=== PATIENT | female | born 1950 | race Hispanic/Latino ===

== ENCOUNTER → 2017-05-11 | Day surgery (SDC) | payer MEDICARE ==
[~2017-05-11] VITALS: Ht 165.1 cm; Wt 81.6 kg
[~2017-05-11] MED LIST: ALLEGRA ALLERGY60 MG PO; ALLEGRA60 MG PO; ALPRAZOLAM0.25 MG PO; ASPRIMOX 325 M325 MG PO; CUBICIN500 MG IV; DRISDOL50000 UNIT PO; FEXOFENADINE HC60 MG PO; FLONASE16 GM; FLOVENT DISKUS50 MCG; LIDOCAINE HCL 2% LOCAL 20 ML VIAL ONE; METOCLOPRAMIDE10 MG PO; METOPROLOL TART50 MG PO; NEPHRO-VITE RX1 EACH PO; NIFEDIPINE ER30 M1 PO; NOVOLOG 70100 UNITS/ SQ; RENAL CAPS SOFTG1 MG PO; RENVELA0.8 GM PO; RIFAMPIN PO; SENSIPAR30 MG PO; SIMVASTATIN80 MG PO; TRAZODONE HCL100 MG PO; Z.0.METOPROLOL TART5 PO; Z.0.RENVELA800 MG PO; Z.0.VITAMIN D50000 U PO; Z.0.XANAX0.25 MG PO; Z.0.ZOCOR80 MG PO; Z.1.DOXYCYCLINE HY10 PO; [UNRECOGNIZED DRUG - OTHER] PO; [UNRECOGNIZED DRUG - OTHER] PO; [UNRECOGNIZED DRUG - OTHER] PO
[2017-05-11 13:41] VITALS: BP 150/67
--- NOTE | 2017-05-11 16:34 | Operative Report ---
DATE OF PROCEDURE: May 11, 2017 INDICATIONS: Palpitations. PROCEDURE PERFORMED: Insertable loop recorder. Left anterior chest wall was anesthetized using subcutaneous lidocaine. A [employer] LINQ serial number [id number] was inserted without complications. Skin was approximated using Dermabond. Patient discharged home the same day. Job#: [id number]
--- OUTSIDE RECORDS SUMMARY | 2017-05-31 17:18 | XMS REPORT | Clinical Summary ---
Author Author [facility] Address Unknown Phone Unavailable Care Team Providers Care Pest Control Worker Name Role Phone Asked, Pcp PCP Unavailable Allergies Active Allergy Reactions Severity Noted Date Comments Iodine Other (See Comments) 11/21/2015 Iodine - unknown Current Medications Prescription Sig. Disp. Refills Start End Date Status Date simvastatin (ZOCOR) 80 MG Take 80 mg by mouth Active tablet nightly. aspirin 325 MG tablet Take 325 mg by mouth Active daily. ALPRAZolam (XANAX) 0.25 Take 0.25 mg by mouth Active MG tablet nightly as needed for anxiety. NIFEdipine XL (PROCARDIA Take 30 mg by mouth Active XL) 30 MG 24 hr tablet daily. temazepam (RESTORIL) 15 Take 15 mg by mouth Active mg capsule nightly as needed for sleep. traZODone (DESYREL) 50 MG Take 50 mg by mouth Active tablet nightly. metoclopramide (REGLAN) Take 10 mg by mouth Active 10 MG tablet daily. furosemide (LASIX) 40 MG Take 40 mg by mouth 2 Active tablet (two) times a day. cinacalcet (SENSIPAR) 30 Take 30 mg by mouth Active MG tablet daily. sevelamer (RENVELA) 800 Take 800 mg by mouth 3 Active mg tablet (three) times a day with meals. Active Problems Problem Noted Date ESRD (end stage renal disease) 11/21/2015 Social History Tobacco Use Types Packs/Day Years Used Date Never Smoker Smokeless Tobacco: Never Used Alcohol Use Drinks/Week oz/Week Comments No Sex Assigned at Date Recorded Not on file Last Filed Vital Signs Not on file Plan of Treatment Health Maintenance Due Date Last Done Comments COLONOSCOPY 10/10/1999 MAMMOGRAM 10/10/1999 ZOSTER VACCINE 2009 PNEUMOCOCCAL 2014 POLYSACCHARIDE VACCINE AGE 65 AND OVER PNEUMOCOCCAL-13 2014 INFLUENZA VACCINE 09/22/2017 Implants Implanted Type Area Associate Principal Device Expiration Model / Identifier Date Serial / Lot Clip Ligtng Weck Hemoclip Plus W/ Medical Right: TELEFLEX 07/01/2020 [id number] / Tape Ti Med - [id number] Clips for Arm, Upper MEDICAL / Implanted: Qty: 2 on 11/21/2015 by Internal [id number] Jason Garrido MD Use Clip Ligtng Weck Hemoclip Plus W/ Medical Right: WECK CLOSURE 2020 [id number] / Tape Ti Sm - [id number] Clips for Arm, Upper SYSTEMS / Implanted: Qty: 1 on 11/21/2015 by Internal [id number] Jason Garrido MD Use Graft Vasclr Acuseal 40cm 6mm - Vascular Right: W L GORE 06/30/2018 [id number] Graft Arm, Upper / Implanted: 11/21/2015 (Quantity not [id number] on file) [id number] Hero Adapter - [id number] Right: Arm [employer] 05/14/2017 [id number] / Implanted: Qty: 1 on 11/21/2015 by / Jason Garrido MD [id number] Component Lamberto [facility] Hero - Right: Arm HEMOSPHERE 02/21/2017 HERO 1001 [id number] / Implanted: Qty: 1 on 11/21/2015 by / Jason Garrido MD [id number] Results Not on fileafter 05/30/2016 Insurance Payer Benefit Subscriber ID Type Phone Address Plan / Group MEDICARE MEDICARE xxxxxxxxxx Medicare [place], [place] [address]
== END ==
LOC: CATH LAB 07:00
PROVIDERS: ATTEND Internal Medicine Interventional Cardiology
DX: Z01.818 Encounter for other preprocedural examination (principal); Z53.8 Procedure and treatment not carried out for other reasons; I73.9 Peripheral vascular disease, unspecified; R00.2 Palpitations
CPT/HCPCS: 33282; J2001

== ENCOUNTER → 2017-09-30 | Day surgery (SDC) | payer MEDICARE ==
[2017-09-29 13:40] LABS: BASOPHILS % 0.6 % (0.0-1.0); EOSINOPHILS # (AUTO) 0.2 (0.0-0.4); EOSINOPHILS % 2.3 % (0.0-6.0); HEMATOCRIT 36.4 % (34.2-44.1); LYMPHOCYTES # (AUTO) 2.2 (1.0-3.2); LYMPHOCYTES % 30.6 % (18.0-39.1); MEAN CORPUSCULAR HEMOGLOBIN 34.7 pg (28-32); MEAN CORPUSCULAR VOLUME 105.2 fL (81-99); MONOCYTES # (AUTO) 0.5 (0.2-0.8); MONOCYTES % 7.7 % (4.4-11.3); NEUTROPHILS # (AUTO) 4.1 (2.1-6.9); NEUTROPHILS % 58.5 % (38.7-80.0); PLATELET COUNT 172 x10e3/uL (140-360); RED BLOOD COUNT 3.46 x10e6/uL (3.6-5.1); RED CELL DISTRIBUTION WIDTH 14.4 % (11.7-14.4)
[2017-09-29 13:50] LABS: PROTHROMBIN TIME 12.4 seconds (11.9-14.5)
[2017-09-29 13:57] LABS: ANION GAP 21.1 mmol/L (8-16); CALCIUM 8.7 mg/dL (8.4-10.2); CREATININE, SERUM 6.54 mg/dL (0.57-1.11); POTASSIUM 5.1 mmol/L (3.5-5.1)
[~2017-09-30] VITALS: Ht 165.1 cm; Wt 81.6 kg
[2017-09-30] VITALS (10 sets, daily range): BP systolic 98–127; BP diastolic 46–65
[~2017-09-30] MED LIST changes: +BACITRACIN 50,000 UNIT VIAL ONE; +CEFAZOLIN SOD 1 GM VIAL ONE; +FENTANYL CITRATE/PF 100MCG/2 ML INJ ONE; +IOPAMIDOL 300MG/ML 50ML INFUS..BTL IV ONE; +MIDAZOLAM HCL 2 MG/2 ML VIAL ONE; +SODIUM CHLORIDE 0.9% 1000ML 2,000 ML ONE; +SODIUM CHLORIDE 0.9% 500ML 500 ML ONE
--- NOTE | 2017-09-30 17:25 | Operative Report ---
DATE OF PROCEDURE: September 30, 2017 PREOPERATIVE DIAGNOSES 1. Intermittent complete heart block. 2. End-stage renal disease, on hemodialysis. POSTOPERATIVE DIAGNOSES 1. Intermittent complete heart block. 2. End-stage renal disease, on hemodialysis. ESTIMATED BLOOD LOSS: Less than 5 mL. OPERATIONS PERFORMED 1. Fluoroscopy. 2. Venogram. 3. Attempt at axillary vein access. 4. Moderate sedation. Moderate conscious sedation was provided under my direct supervision. Sedation approximate time 15 minutes, Versed and fentanyl. There were no complications. See report for details. DETAILS OF PROCEDURE: After informed consent was obtained, the patient was brought to the electrophysiology laboratory in a fasting, nonsedated state. Area over her chest was prepped and draped in the usual sterile fashion. Moderate sedation and prophylactic antibiotics were given. Lidocaine 1% was used as local anesthetic. Due to right arm AV fistula, right-sided access is contraindicated. We went ahead and attempted access at the left axillary vein. A venogram demonstrated the vein was occluded. We still attempted with the percutaneous needle. We were able to thread a wire for about 1 inch inside the vein; however, unable to pass the occlusion, so procedure was stopped. We did not make an incision. We did not make any pocket. Patient tolerated the procedure well. Procedure was deemed complete. At this time, attempt getting central venous access was failed. Procedure was canceled and she is to be discharged later today. IMPRESSION: Failed attempt at axillary access from the left side due to vein occlusion in the axillary vein. PLANS 1. Routine postop monitoring, telemetry bed. 2. Consider epicardial pacemaker placement by CT surgery. Will discuss with Dr. Hurt. 3. In the evening that patient is turned down for epicardial pacemaker placement, we could potentially consider a left IJ access and tunneling leads to subclavicular pocket. However, will need evaluation by CT surgery first. Thank you for letting us participate in Ms. [facility]. Job#: [id number] ZAKI
== END | disposition home or self-care (01) ==
LOC: CATH LAB 08:02
PROVIDERS: ATTEND Internal Medicine
DX: I45.5 Other specified heart block (principal); I12.0 Hypertensive chronic kidney disease with stage 5 chronic kidney disease or end stage renal disease; N18.6 End stage renal disease; I82.A12 Acute embolism and thrombosis of left axillary vein; E78.5 Hyperlipidemia, unspecified; E78.00 Pure hypercholesterolemia, unspecified; Z01.812 Encounter for preprocedural laboratory examination; Z79.4 Long term (current) use of insulin; Z79.82 Long term (current) use of aspirin; Z99.2 Dependence on renal dialysis; Z68.36 Body mass index [BMI] 36.0-36.9, adult; Z95.818 Presence of other cardiac implants and grafts
CPT/HCPCS: 36012; 36415; 80048; 85025; 85610; J0690; J2001; J2250; J7030; J7040; Q9967; 36005

== ENCOUNTER 2018-12-19 17:47 | Emergency (ER) | payer MEDICARE ==
[~2018-12-19] VITALS: Ht 165.1 cm; Wt 86.6 kg
[~2018-12-19 17:47] MED LIST changes: -BACITRACIN 50,000 UNIT VIAL ONE; -CEFAZOLIN SOD 1 GM VIAL ONE; -FENTANYL CITRATE/PF 100MCG/2 ML INJ ONE; -IOPAMIDOL 300MG/ML 50ML INFUS..BTL IV ONE; -LIDOCAINE HCL 2% LOCAL 20 ML VIAL ONE; -MIDAZOLAM HCL 2 MG/2 ML VIAL ONE; +ROPINIROLE HC0.25 MG PO; +SENNA S TABLET1 EACH PO; -SODIUM CHLORIDE 0.9% 1000ML 2,000 ML ONE; -SODIUM CHLORIDE 0.9% 500ML 500 ML ONE; +WARFARIN SODIUM2 MG PO
--- NOTE | 2018-12-19 18:21 | Diagnostic Imaging Report ---
Frontal and lateral views of the chest. HISTORY: Chest pain, high blood pressure COMPARISON: Chest radiograph May 26, 2018. DISCUSSION: Stable appearing right approach venous catheter, the tip projects in the region of the atrial junction. Lungs: Low lung volumes result in bibasilar vascular crowding, accentuation of the pulmonary interstitial markings, central pulmonary vasculature, and the cardiac silhouette. Allowing for these limitations, the findings are as follows: Left basilar platelike atelectasis. No evidence of a consolidative pneumonia or pulmonary alveolar edema. Pleura: No pleural effusion or pneumothorax. Heart and mediastinum: The cardiomediastinal silhouette appear(s) unchanged. Postsurgical changes and loop recorder. Bones and soft tissues: Multiple median sternotomy wires. IMPRESSION: 1. Increased left basilar platelike atelectasis. 2. Otherwise, no significant interval change. Signed by: Dr. Karl Sainz D.O., M.M.M. on 12/19/2018 6:18 PM
[2018-12-19 21:19] LABS: BASOPHILS # (AUTO) 0.1 (0.0-0.1); BASOPHILS % 0.7 % (0.0-1.0); EOSINOPHILS # (AUTO) 0.1 (0.0-0.4); EOSINOPHILS % 1.6 % (0.0-6.0); HEMATOCRIT 40.9 % (34.2-44.1); HEMOGLOBIN 13.9 g/dL (12.0-16.0); LYMPHOCYTES # (AUTO) 1.9 (1.0-3.2); LYMPHOCYTES % 25.8 % (18.0-39.1); MEAN CORPUSCULAR HEMOGLOBIN 35.9 pg (28-32); MEAN CORPUSCULAR VOLUME 105.7 fL (81-99); MONOCYTES # (AUTO) 0.5 (0.2-0.8); MONOCYTES % 7.2 % (4.4-11.3); NEUTROPHILS # (AUTO) 4.7 (2.1-6.9); NEUTROPHILS % 64.4 % (38.7-80.0); PLATELET COUNT 165 x10e3/uL (140-360); RED BLOOD COUNT 3.87 x10e6/uL (3.6-5.1); RED CELL DISTRIBUTION WIDTH 14.5 % (11.7-14.4)
[2018-12-19 22:32] LABS: CREATINE KINASE MB 2.8 ng/mL (0-4.3)
[2018-12-19 22:54] LABS: ALBUMIN 3.7 g/dL (3.5-5.0); ALBUMIN/GLOBULIN RATIO 0.7 (0.8-2.0); ANION GAP 25.6 mmol/L (8-16); CALCIUM 10.3 mg/dL (8.4-10.2); CREATININE, SERUM 5.18 mg/dL (0.57-1.11); POTASSIUM 4.6 mmol/L (3.5-5.1)
[2018-12-19 23:54] VITALS: BP 131/85
== END 2018-12-19 23:58 | disposition home or self-care (01) ==
LOC: ER 17:47
DX: R53.1 Weakness (principal); R51 Headache; I12.0 Hypertensive chronic kidney disease with stage 5 chronic kidney disease or end stage renal disease; E11.22 Type 2 diabetes mellitus with diabetic chronic kidney disease; N18.6 End stage renal disease; Z99.2 Dependence on renal dialysis; E78.5 Hyperlipidemia, unspecified; F41.9 Anxiety disorder, unspecified; Z95.810 Presence of automatic (implantable) cardiac defibrillator
CPT/HCPCS: 36415; 71046; 80053; 82550; 82553; 84484; 85025; 93005; 99283

== ENCOUNTER 2019-01-28 14:03 | Inpatient (IN) | payer MEDICARE ==
[~2019-01-28] VITALS: Ht 165.1 cm; Wt 82.6 kg
--- NOTE | 2019-01-28 14:40 | NUR ---
PATIENT TO ROOM 2
--- NOTE | 2019-01-28 15:14 | NUR ---
RECEIVED CALL FROM TIFFANI, . ( SHILOH, COORDINATOR) IF WE NEED ANY INFORMATION YOU CAN CALL
--- NOTE | 2019-01-28 16:50 | NUR ---
UNSUCCESFUL WITH IV START, MOMO HORVATHTECHNICAL PROGRAM MANAGER CALLED
[2019-01-28] MEDS ORDERED: ONDANSETRON HCL INJ 2MG/ML 2ML 2 MG/ML VIAL IV ONE (17:00)
[2019-01-28] MEDS ORDERED: PIPER-TAZ 3.375 GM 50 ML IV ONE (17:00)
[2019-01-28] MEDS ORDERED: MORPHINE SULFATE 2 MG/ML SYR 1ML IV ONE (17:00)
[2019-01-28] MEDS ORDERED: VANCOMYCIN 1GM/NS 250 ML 250 ML IV ONE ×2 (17:30→23:45)
--- NOTE | 2019-01-28 17:36 | NUR ---
MOMO FIRE SUPERVISOR, UNSUCCESFUL X 2. DR. JACOBO AWARE
--- NOTE | 2019-01-28 17:42 | NUR ---
LAB NOTIFIED TO DRAW BLOOD WORK
--- NOTE | 2019-01-28 17:52 | NUR ---
VICE PRESIDENT FOR INSTRUCTION AT BEDSIDE
--- NOTE | 2019-01-28 18:10 | NUR ---
VIA CULTURAL LINK (Dolores HOUSER). PURE PAK MACHINE OPERATOR. CONSENTS FROM CENTRAL LINE OBTAINED
--- NOTE | 2019-01-28 18:10 | NUR ---
STRIPPER AND PRINTER AT BEDSIDE OBTAINING 2ND SET OF CULTURES
[2019-01-28 18:11] LABS: BASOPHILS % 0.6 % (0.0-1.0); EOSINOPHILS # (AUTO) 0.2 (0.0-0.4); EOSINOPHILS % 2.3 % (0.0-6.0); HEMATOCRIT 35.5 % (34.2-44.1); HEMOGLOBIN 11.6 g/dL (12.0-16.0); LYMPHOCYTES # (AUTO) 2.3 (1.0-3.2); LYMPHOCYTES % 34.5 % (18.0-39.1); MEAN CORPUSCULAR HEMOGLOBIN 35.9 pg (28-32); MEAN CORPUSCULAR HGB CONC 32.7 g/dL (31-35); MEAN CORPUSCULAR VOLUME 109.9 fL (81-99); MONOCYTES # (AUTO) 0.6 (0.2-0.8); MONOCYTES % 9.1 % (4.4-11.3); NEUTROPHILS # (AUTO) 3.5 (2.1-6.9); NEUTROPHILS % 53.2 % (38.7-80.0); PLATELET COUNT 206 x10e3/uL (140-360); RED BLOOD COUNT 3.23 x10e6/uL (3.6-5.1); RED CELL DISTRIBUTION WIDTH 16.5 % (11.7-14.4)
[2019-01-28 18:29] LABS: INR 3.3; PROTHROMBIN TIME 34.3 seconds (11.9-14.5)
[2019-01-28 18:30] LABS: PARTIAL THROMBOPLASTIN TIME 61.9 seconds (23.8-35.5)
[2019-01-28] MEDS ORDERED: DEXTROSE 50% SYRINGE 50 ML IV PRN (18:30)
[2019-01-28] MEDS ORDERED: ONDANSETRON HCL INJ 2MG/ML 2ML 2 MG/ML VIAL IV PRN (18:30)
[2019-01-28 18:31] LABS: ALBUMIN 2.9 g/dL (3.5-5.0); ALBUMIN/GLOBULIN RATIO 0.7 (0.8-2.0); ANION GAP 20.4 mmol/L (8-16); CALCIUM 9.6 mg/dL (8.4-10.2); CREATININE, SERUM 5.59 mg/dL (0.57-1.11); POTASSIUM 4.4 mmol/L (3.5-5.1)
[2019-01-28 18:37] LABS: CREATINE KINASE MB 2.2 ng/mL (0-5.0)
--- NOTE | 2019-01-28 18:55 | NUR ---
DR. JACOBO AT BEDSIDE PLACING RIGHT FEMORAL CENTRAL LINE
--- NOTE | 2019-01-28 18:55 | Diagnostic Imaging Report ---
EXAMINATION: CHEST 2 VIEWS INDICATION: Fall, left chest wall abscess. COMPARISON: Chest radiograph 12/19/2018. FINDINGS: TUBES and LINES: Right IJ tunneled hematosis catheter with tip near the caval atrial junction. Cardiac loop recorder with adjacent leads in unchanged position. LUNGS: Low lung volumes with central vascular congestion and mild interstitial opacities. No evidence of lobar pneumonia. Linear subsegmental atelectasis in the lower lung zones. PLEURA: No pleural effusion or pneumothorax. HEART AND MEDIASTINUM: The cardiomediastinal silhouette is unremarkable. There are atherosclerotic calcifications within the aorta. BONES AND SOFT TISSUES: No acute osseous abnormality. Status post median sternotomy. UPPER ABDOMEN: No free air under the diaphragm. IMPRESSION: Low lung volumes with possible mild pulmonary interstitial edema. Signed by: Dr. Venancio Kumar MD on 01/28/2019 6:52 PM
[2019-01-28] MEDS: PIPERACILLIN/TAZO 2.25 GM 50 ML IV SCH (20:32)
[2019-01-28 22:15] VITALS: BP 176/68
--- NOTE | 2019-01-28 22:30 | NUR ---
Pt admitted to room 208 from home, via stretcher, able to transfer to bed with min assist. Pt alert and oriented to self, hospital, with confusion. Diagnosis: Cellulitis and abscess to left breast, ESRD with dialysis MWF, right arm fistula, left arm old fistula. Anuric. Last BM 01/28, continent. Kinyarwanda Speaking only. at bedside. Right eye blind. Upper and lower dentures. 18g right EJ, tender to touch. Pain under left breast with redness and swelling. Oriented to room. Bed low and locked. Bed alarm on. Call light within reach.
[2019-01-28] MEDS ORDERED: ULTRAM 50MG50 MG PO (22:48)
[2019-01-28] MEDS ORDERED: AURYXIA210 MG (22:48)
[2019-01-28] MEDS ORDERED: MIRTAZAPINE15 MG PO (22:48)
[2019-01-28 23:05] VITALS: BP 176/68
[2019-01-28 23:08] VITALS: BP 176/68
[2019-01-28] MEDS: INSULIN LISPRO 100 UNIT/1 ML 3ML VIAL SQ SCH (23:45)
[2019-01-28] MEDS ORDERED: SODIUM CHLORIDE 0.9% 250ML 250 ML ONE (23:46)
[2019-01-29] VITALS (8 sets, daily range): BP systolic 98–145; BP diastolic 46–63
[2019-01-29 05:57] LABS: BASOPHILS # (AUTO) 0.1 (0.0-0.1); BASOPHILS % 0.5 % (0.0-1.0); EOSINOPHILS # (AUTO) 0.2 (0.0-0.4); EOSINOPHILS % 1.6 % (0.0-6.0); LYMPHOCYTES # (AUTO) 1.9 (1.0-3.2); LYMPHOCYTES % 20.7 % (18.0-39.1); MEAN CORPUSCULAR HEMOGLOBIN 35.5 pg (28-32); MEAN CORPUSCULAR HGB CONC 32.4 g/dL (31-35); MEAN CORPUSCULAR VOLUME 109.5 fL (81-99); MONOCYTES # (AUTO) 0.6 (0.2-0.8); MONOCYTES % 6.5 % (4.4-11.3); NEUTROPHILS # (AUTO) 6.4 (2.1-6.9); NEUTROPHILS % 70.3 % (38.7-80.0); PLATELET COUNT 237 x10e3/uL (140-360); RED BLOOD COUNT 3.38 x10e6/uL (3.6-5.1); RED CELL DISTRIBUTION WIDTH 16.3 % (11.7-14.4)
[2019-01-29] MEDS: PIPERACILLIN/TAZO 2.25 GM 50 ML IV SCH ×2 (06:00→17:41)
[2019-01-29 06:15] LABS: ALBUMIN 3.1 g/dL (3.5-5.0); ALBUMIN/GLOBULIN RATIO 0.7 (0.8-2.0); ANION GAP 24.4 mmol/L (8-16); CALCIUM 9.6 mg/dL (8.4-10.2); CREATININE, SERUM 6.28 mg/dL (0.57-1.11); POTASSIUM 5.4 mmol/L (3.5-5.1)
[2019-01-29] MEDS: INSULIN LISPRO 100 UNIT/1 ML 3ML VIAL SQ SCH ×4 (07:30→21:10)
--- NOTE | 2019-01-29 08:01 | NUR ---
k-5.[address] Serrano, he consulted Dr Fishman her kidney Dr, Paged Dr Fishman
--- NOTE | 2019-01-29 08:40 | NUR ---
Call recvd from Dr De La Torre (account retention representative Dr Fishman), new order to give Kayexalate po 45gm once and ,miralax 17gm X1 . patient is stable
[2019-01-29] MEDS ORDERED: POLYETHYLENE GLYCOL 3350 17 GM PACK PO ONE (09:30)
[2019-01-29] MEDS ORDERED: SOD POLYSTYRENE SULFONATE SUSP 15 GM/60 ML BTL PO ONE (09:30)
[2019-01-29] MEDS ORDERED: ALPRAZOLAM 0.25 MG TAB PO PRN (10:00)
[2019-01-29] MEDS ORDERED: TRAMADOL HCL 50 MG TAB PO PRN (10:00)
[2019-01-29 10:54] LABS: CREATINE KINASE MB 1.4 ng/mL (0-5.0)
--- NOTE | 2019-01-29 13:20 | NUR ---
Dr Cruz at bed side to I&D, PATIENT IS STABLE
[2019-01-29] MEDS ORDERED: LIDOCAINE HCL 1% LOCAL INJ 20 ML VIAL INJ ONE (14:00)
[2019-01-29] MEDS: SENNA-S TABLET PO SCH (17:40)
--- NOTE | 2019-01-29 19:15 | NUR ---
Bedside rounds completed with morning nurse. Pt alert to name, lying in bed HOB 45 degrees. No s/o of pain at this time. Family at bedside. Call light within reach. Will continue to monitor.
--- NOTE | 2019-01-29 20:30 | Consultation ---
DATE OF CONSULTATION: 01/29/2019 CHIEF COMPLAINT: Abdominal wall abscess. HISTORY OF PRESENT ILLNESS: The patient is a 68-year-old female with several-day history of swelling, redness, and pain in the upper abdominal region under the left breast. She denies fever or chills. PAST MEDICAL HISTORY: Significant for hypertension, end-stage renal disease, hyperparathyroidism, and diabetes. PAST SURGICAL HISTORY: Positive for pacemaker placement. SOCIAL HABITS: No smoking or alcohol use. ALLERGIES: SHE HAS NO DRUG ALLERGIES. REVIEW OF SYSTEMS: She denies chest pain or shortness of breath. PHYSICAL EXAMINATION: VITAL SIGNS: Stable, afebrile. GENERAL: She is awake, alert, in mild discomfort. HEENT: Sclerae anicteric. NECK: Supple. LUNGS: Clear. HEART: Regular rate and rhythm. ABDOMEN: Soft. In the left subcostal margin regions, there is a 3 x 2 cm area of erythema with some exudate drainage consistent with abscess. EXTREMITIES: With some ankle edema. LABORATORY DATA: White cell count is 9 and hemoglobin of 12. Creatinine of 6.2. INR of 3.3. ASSESSMENT: Abdominal wall abscess. PLAN: I and D of abdominal wall abscess under local anesthesia. Attendant risks of bleeding discussed. Hayden Cruz MD DNL/MODL /[id number]
--- NOTE | 2019-01-29 20:45 | Operative Report ---
DATE OF PROCEDURE: 01/29/2019 SURGEON: Hayden Cruz MD PREOPERATIVE DIAGNOSIS: Abdominal wall abscess. POSTOPERATIVE DIAGNOSIS: Abdominal wall abscess. PROCEDURE: Incision and drainage of abdominal wall abscess. ANESTHESIA: Local. INDICATIONS: A 68-year-old female with diabetes and end-stage renal disease with development of abdominal wall abscess for several days. She consented for incision and drainage under anesthesia local. DESCRIPTION OF PROCEDURE: The patient was placed in supine position in her hospital bed. The left upper quadrant subcostal margin area was prepped with Betadine and draped in a sterile fashion. Local anesthesia 1% lidocaine was injected into the area of the abscess. A transverse incision was made approximately 3 cm into the anterior wall of the abscess entering the cavity. Purulent material was evacuated and swab specimen obtained for culture and sensitivity. The cavity was then probed to break up all loculations and compressed to release all purulent material. Cavity was then packed tight with iodoform gauze for hemostasis, which was achieved with compression dressing of 4x4 and silk tape. The patient tolerated the procedure well. BLOOD LOSS: 10 mL. Hayden Cruz MD DNL/MODL /[id number]
[2019-01-29] MEDS: SIMVASTATIN 80 MG TAB PO SCH (21:10)
[2019-01-29] MEDS: TRAZODONE HCL 50 MG TAB PO SCH (21:10)
[2019-01-29] MEDS: MIRTAZAPINE 15 MG TAB PO SCH (21:10)
[2019-01-29] MEDS: ROPINIROLE HCL 0.25 MG TAB PO SCH (21:10)
--- NOTE | 2019-01-29 23:40 | Consultation ---
DATE OF CONSULTATION: 01/29/2019 Nephrology Consultation REASON FOR CONSULT: End-stage kidney disease. HISTORY OF PRESENT ILLNESS: Ms. Christine is a 68-year-old female with the following problem list: 1. End-stage kidney disease, on chronic hemodialysis on Mondays, Wednesdays, and Fridays. 2. History of diabetes mellitus type 2. 3. History of hypertension. 4. Morbid obesity. 5. Anemia of chronic disease. The patient was admitted with left upper quadrant abdominal abscess of her abdominal wall. It was drained. The patient's is at the bedside. The patient is complaining of mild pain at the surgical site. PAST MEDICAL HISTORY: As above. MEDICATIONS: Per medication list. ALLERGIES: PER ALLERGY LIST. SOCIAL HISTORY: She lives with family. She denies tobacco, alcohol, illicit or recreational drug use. PHYSICAL EXAMINATION: GENERAL: Adult female of approximate stated age, morbidly obese, in no acute distress. VITAL SIGNS: Blood pressure 98/46, heart rate 93 per minute, T-max 99 degrees Fahrenheit. SHEENT: Unremarkable. NECK: Supple. LUNGS: Clear. HEART: Normal heart sounds. No additional sounds. ABDOMEN: Soft and nontender. No organomegaly. EXTREMITIES: No cyanosis, clubbing, or edema. LABORATORY FINDINGS: Noted and reviewed. ASSESSMENT AND PLAN: 1. End-stage kidney disease. The patient will be continued on her outpatient dialysis schedule. She will receive dialysis tomorrow. 2. Hyperkalemia, treated with Kayexalate and MiraLax with good result. 3. Metabolic acidosis, mild. 4. Anemia of chronic disease. Hematocrit and hemoglobin are in good range. 5. Disposition. We will follow this patient with you. I have discussed my evaluation, assessment and plan of care with the patient and her at the bedside in details. All questions were answered to their satisfaction until they had none. MD BREE Rodriguez/SHELLEY /[id number]
[2019-01-30] VITALS (8 sets, daily range): BP systolic 106–185; BP diastolic 46–77
[2019-01-30] MEDS: PIPERACILLIN/TAZO 2.25 GM 50 ML IV SCH ×3 (05:37→21:26)
--- NOTE | 2019-01-30 05:40 | NUR ---
[facility] called to inform of Pt in hospital. Dialysis usu received MWF.
--- NOTE | 2019-01-30 07:00 | NUR ---
BEDSIDE SHIFT REPORT RECEIVED FROM THE PETROPHYSICAL ENGINEER RN. EDUCATED PT ABOUT FALL PRECAUTIONS. CALL LIGHT WITH IN EASY REACH. INSTRUCTED PT TO USE CALL LIGHT FOR ALL THE NEEDS. PT VERBALIZED UNDERSTANDING. BED IS LOW AND LOCKED. SIDE RAILS X2. BED ALARM IS ON. PT DENIES NEEDS AT THIS TIME.
--- NOTE | 2019-01-30 07:15 | NUR ---
Spoke with Dr. Cruz regarding Pt new red tender mass to posterior right shoulder, will visit Pt later today.
[2019-01-30] MEDS: INSULIN LISPRO 100 UNIT/1 ML 3ML VIAL SQ SCH ×4 (07:30→21:00)
[2019-01-30] MEDS: SENNA-S TABLET PO SCH ×3 (09:00→17:23)
--- NOTE | 2019-01-30 09:00 | NUR ---
JAMIL IVERSON REGARDING PT DIALYSIS.
--- NOTE | 2019-01-30 09:00 | NUR ---
DR. CHRIS AT BEDSIDE. INFORMED PT K LEVEL.
--- NOTE | 2019-01-30 11:30 | NUR ---
VETERINARY PATHOLOGIST AT BEDSIDE.
--- NOTE | 2019-01-30 12:40 | NUR ---
Called and left message for Dr. Serrano regarding dc plan, possible need for LTAC. Awaiting callback.
--- NOTE | 2019-01-30 14:07 | NUR ---
WOUND CARE CONSULT 68 YO FEMALE HX OF ABSCESS ,CELLULITIS BRADNEN 18 ON CONSERVATIVE PUP AND VISCO SURFACE LABS: WBC- 9.14, HGB- 12 WOUND CULTURE PRELIMINARY GRAM + COCCI BLOOD CULTURE PENDING SKIN ASSESSMENT COMPLETE PATIENT PRESENTS WITH SURGICAL FULL THICKNESS WOUND POST I&D ABSCESS UNDER LEFT BREAST MEASURING .5CM X 2CM X 8.5CM RECOMMENDATIONS: NURSING TO CONTINUE TO MAINTAIN CONSERVATIVE PUP STATUS AND ALTERNATING PRESSURE SURFACE NURSING TO CONTINUE TO ASSIST PATIENT OUT OF BED FOR MEALS AND MUCH TOLERATED NURSING TO PACK DAILY IODOFORM PACKING TO WOUND BED OF ULCERATION UNDER LEFT BREAST COVER WITH 4X4 AND HYPAFIX TAPE Addendum: 01/30/19 at 1419 by Gerhard Contreras RN Amended: Links added.
[2019-01-30] MEDS ORDERED: VANCOMYCIN 1GM/NS 250 ML 250 ML IV SCH (17:00)
--- NOTE | 2019-01-30 19:00 | NUR ---
BEDSIDE SHIFT REPORT GIVEN TO THE STRAND AND BINDER CONTROLLER RN. PT DENIED FURTHER NEEDS.
--- NOTE | 2019-01-30 20:00 | NUR ---
RECEIVED REPORT FROM AM NURSE, PATIENT RESTING IN BED, NO DISTRESS NOTED, CALL LIGHT IN REACH. RECEIVING ANTIBIOTICS PER IV, WILL CONTINUE TO MONITOR.
[2019-01-30] MEDS: MIRTAZAPINE 15 MG TAB PO SCH (21:26)
[2019-01-30] MEDS: TRAZODONE HCL 50 MG TAB PO SCH (21:26)
[2019-01-30] MEDS: SIMVASTATIN 80 MG TAB PO SCH (21:26)
[2019-01-30] MEDS: ROPINIROLE HCL 0.25 MG TAB PO SCH (21:26)
[2019-01-31] VITALS (11 sets, daily range): BP systolic 85–138; BP diastolic 42–62
--- NOTE | 2019-01-31 04:00 | NUR ---
CONTINUE RESTING, SALINE LOCK STARTED TO LEFT ARM, DRESSING REMAIN INTACT TO LEFT BREAST AREA. REMAIN ON TELEMETRY. NO DISTRESS NOTED. WILL CONTINUE TO MONITOR. CALL LIGHT IN REACH.
--- NOTE | 2019-01-31 05:00 | NUR ---
DRESSING REMAIN INTACT TO RIGHT ARM FISTULA, BRUIT AUSCULTATE, WILL CONTINUE TO MONITOR.
--- NOTE | 2019-01-31 07:00 | NUR ---
BEDSIDE SHIFT REPORT RECEIVED FROM THE LEARNING CENTER INSTRUCTOR RN. EDUCATED PT ABOUT FALL PRECAUTIONS. CALL LIGHT WITH IN EASY REACH. INSTRUCTED PT TO USE CALL LIGHT FOR ALL THE NEEDS. PT VERBALIZED UNDERSTANDING. BED IS LOW AND LOCKED. SIDE RAILS X2. BED ALARM IS ON. PT DENIES NEEDS AT THIS TIME.
--- NOTE | 2019-01-31 07:00 | NUR ---
REPORT GIVEN TO ONCOMING NURSE.
[2019-01-31] MEDS: INSULIN LISPRO 100 UNIT/1 ML 3ML VIAL SQ SCH ×4 (07:30→20:35)
--- NOTE | 2019-01-31 08:00 | NUR ---
RIGHT EXTERNAL JUGULAR 18 G IV REMOVED. TIP INTACT. DRESSING APPLIED. PT DENIED FURTHER NEEDS.
[2019-01-31] MEDS: PIPERACILLIN/TAZO 2.25 GM 50 ML IV SCH ×2 (08:55→20:11)
[2019-01-31] MEDS: SENNA-S TABLET PO SCH ×2 (09:02→16:48)
--- NOTE | 2019-01-31 10:02 | NUR ---
Received order for LTAC eval. CM spoke to pt and her Fabrizio at bedside. Informed them that pt will need 2-4 weeks of IV abx. Pt's stated that pt has previously been to [facility] [address] from the hospital. Would like for pt to go there. Choice letter signed for [facility]. Signed copy placed in chart. Copy to pt's . Velvet Stauffer with [place] was informed of referral and will be by to poultry picker clinicals.
--- NOTE | 2019-01-31 11:45 | NUR ---
PAGED DR. CHRIS AND LEFT MESSAGE REGARDING PT LOW BP. WAITING FOR THE CALL BACK.
[2019-01-31 12:36] LABS: BASOPHILS % 0.6 % (0.0-1.0); EOSINOPHILS # (AUTO) 0.2 (0.0-0.4); EOSINOPHILS % 3.4 % (0.0-6.0); HEMATOCRIT 33.4 % (34.2-44.1); HEMOGLOBIN 10.9 g/dL (12.0-16.0); LYMPHOCYTES # (AUTO) 2.1 (1.0-3.2); LYMPHOCYTES % 30.3 % (18.0-39.1); MEAN CORPUSCULAR HEMOGLOBIN 35.7 pg (28-32); MEAN CORPUSCULAR HGB CONC 32.6 g/dL (31-35); MEAN CORPUSCULAR VOLUME 109.5 fL (81-99); MONOCYTES # (AUTO) 0.5 (0.2-0.8); MONOCYTES % 6.7 % (4.4-11.3); NEUTROPHILS % 58.9 % (38.7-80.0); PLATELET COUNT 244 x10e3/uL (140-360); RED BLOOD COUNT 3.05 x10e6/uL (3.6-5.1); RED CELL DISTRIBUTION WIDTH 16.3 % (11.7-14.4)
--- NOTE | 2019-01-31 15:01 | NUR ---
LONG-TERM ACUTE CARE DISCHARGE INFORMATION PATIENT HAS BEEN ACCEPTED TO: [facility] [address] [place] [address] ACCEPTING SWEEPER BRUSH MAKER MACHINE: Emma Dunn ACCEPTING MD: Dr. Serrano ROOM: 303 NURSE CALL REPORT TO: [phone] THE FOLLOWING DOCUMENTS MUST ACCOMPANY PATIENT FOR TRANSFER: copy of chart, transfer MAR COPIED CHART: Jane, nurse unit manager MOT INFO RECEIVED FROM: Velvet Stauffer PHYSICIANS ORDER/RECONCILED MED LIST: to be obtained by bedside RN [id number] DNR: n/a MOT completed and placed with pt's packet at nurse's station. JENNIFER Vanegas was informed of MOT and will call Dr. Serrano for dc order.
--- NOTE | 2019-01-31 15:50 | NUR ---
PAGED DR. CHRIS REGARDING PT TRANSFER. WILL CALL BACK ABOUT PT TRANSFER PER THE
--- NOTE | 2019-01-31 15:55 | NUR ---
PAGED DR. CHAND REGARDING PT TRANSFER. OKAY TO D/C PT PER DR. CHAND.
--- NOTE | 2019-01-31 16:00 | NUR ---
PT GOT ROOM AT MORROW PER CASE MANAGEMENT. INFORMED THE SAME TO DR. CHRIS. DR. CHRIS WILL CALL BACK ON PT TRANSFER. INFORMED THE MESSAGE TO CASE MANAGEMENT.
--- NOTE | 2019-01-31 19:00 | NUR ---
BEDSIDE SHIFT REPORT GIVEN TO THE SUPERVISOR MARBLE RN. INFORMED ABOUT PT TRANSFER. WAITING FOR THE CALL BACK FROM DR. CHRIS. PT AT BEDSIDE. PT DENIED FURTHER NEEDS.
--- NOTE | 2019-01-31 19:38 | NUR ---
TALKED TO DR. CHRIS REGARDING THE PATIENT BEING TRANSFERRED. WAS ORDERED TO TRANSFER IN THE MORNING.
[2019-01-31] MEDS: ROPINIROLE HCL 0.25 MG TAB PO SCH (20:35)
[2019-01-31] MEDS: SIMVASTATIN 80 MG TAB PO SCH (20:35)
[2019-01-31] MEDS: MIRTAZAPINE 15 MG TAB PO SCH (20:35)
[2019-01-31] MEDS: TRAZODONE HCL 50 MG TAB PO SCH (20:35)
--- NOTE | 2019-01-31 20:35 | NUR ---
PATIENT IS RESTING IN BED, BOTH EYES CLOSED, NO SIGNS OF DISTRESS NOTED. IV ANTIBIOTICS ARE RUNNING AT ORDERED RATE AND PATIENT VOICES NO PAIN AT THIS TIME. BED IS LOW, ALARM IS ON, BOTH SIDE RAILS ARE UP, CALL LIGHT WITHIN REACH, WILL CONTINUE TO MONITOR.
[2019-02-01] VITALS: BP 135/63
[2019-02-01 04:00] VITALS: BP 141/63
[2019-02-01 05:40] LABS: ANION GAP 22.8 mmol/L (8-16); CALCIUM 8.4 mg/dL (8.4-10.2); CREATININE, SERUM 7.42 mg/dL (0.57-1.11); POTASSIUM 4.8 mmol/L (3.5-5.1)
[2019-02-01] MEDS: INSULIN LISPRO 100 UNIT/1 ML 3ML VIAL SQ SCH ×3 (07:30→16:02)
[2019-02-01] MEDS: PIPERACILLIN/TAZO 2.25 GM 50 ML IV SCH (08:38)
[2019-02-01] MEDS: SENNA-S TABLET PO SCH (08:39)
[2019-02-01 08:55] VITALS: BP 144/63
--- NOTE | 2019-02-01 09:32 | NUR ---
LONG-TERM ACUTE CARE DISCHARGE INFORMATION PATIENT HAS BEEN ACCEPTED TO: [facility] [address] [place] [address] ACCEPTING MANUFACTURING ANALYST: Emma Dunn ACCEPTING MD: Dr. Serrano ROOM: 308 NURSE CALL REPORT TO: [phone] THE FOLLOWING DOCUMENTS MUST ACCOMPANY PATIENT FOR TRANSFER: copy of chart, transfer MAR COPIED CHART: Jane, gunite mixer MOT INFO RECEIVED FROM: Velvet Stauffer PHYSICIANS ORDER/RECONCILED MED LIST: to be obtained by bedside RN [id number] DNR: n/a MOT was updated with room change. MAR faxed to [phone], as requested.
[2019-02-01] MEDS ORDERED: SODIUM CHLORIDE 0.9% 1000ML 2,000 ML ONE (09:41)
[2019-02-01 11:29] VITALS: BP 126/57
[2019-02-01 15:47] VITALS: BP 116/59
--- NOTE | 2019-02-01 17:10 | NUR ---
The pt. was transferred to [facility] via stretcher in stable condition. The pt's p m vancomycin was sent with her and the dressing was change as well.
--- NOTE | 2019-02-02 07:31 | Discharge Summary ---
PRIMARY CARE PHYSICIAN: Phil Serrano MD. CONSULTANTS: 1. Nima Fishman MD. 2. Clemente Alvarez MD. 3. Hayden Bolden MD. FINAL DIAGNOSES: 1. Left abdominal wall abscess, status post incision and drainage. 2. Baseline end-stage renal disease, on dialysis. 3. Baseline diabetes type 2, on insulin therapy. 4. Baseline atrial fibrillation, on anticoagulant therapy. 5. Morbid obesity. 6. Functional dementia. 7. Medical debility. HISTORY OF PRESENT ILLNESS: The patient is a 68-year-old female, who came in with left upper abdominal wall abscess. It was very tender, redness, and drainage. The patient has a high risk for repeated infection. She lives at home with her spouse, who will care for the patient. The patient is progressively debilitated. She is also getting dialysis. Apparently, she was having this problem, but unable to get to the medical care for the evaluation. Now, she came in with the abscess. She status post has incision and drainage. Culture grew out to be either strep or staph. The sensitivities still pending, but the patient is on good coverage, Zosyn IV and vancomycin IV after each dialysis. Because of her overall condition and status and debility along with the ability to get the care, the patient will go to [facility]. Continue with dialysis, wound care, wound packing, and IV antibiotics. The patient will be transferred today and I will continue to follow the patient and make some adjustment of the patient treatment. The patient will be transferred today. MD TASIA Ocampo/DAYANARAL /[id number]
== END 2019-02-01 17:10 | DRG 579 ==
LOC: ER 14:03 → ERHOLD 18:28 → MED/SURG2 22:13
PROVIDERS: ADMIT Internal Medicine; ATTEND Internal Medicine
PROC: 0W9F0ZZ Drainage of Abdominal Wall, Open Approach (ICD-10-PCS; principal; 2019-01-29)
PROC: 5A1D70Z Performance of Urinary Filtration, Intermittent, Less than 6 Hours Per Day (ICD-10-PCS; 2019-01-30)
PROC: 5A1D70Z Performance of Urinary Filtration, Intermittent, Less than 6 Hours Per Day (ICD-10-PCS; 2019-02-01)
DX: L02.211 Cutaneous abscess of abdominal wall (principal); N18.6 End stage renal disease; I12.0 Hypertensive chronic kidney disease with stage 5 chronic kidney disease or end stage renal disease; E11.22 Type 2 diabetes mellitus with diabetic chronic kidney disease; Z99.2 Dependence on renal dialysis; Z79.4 Long term (current) use of insulin; D63.1 Anemia in chronic kidney disease; E66.01 Morbid (severe) obesity due to excess calories; Z68.30 Body mass index [BMI] 30.0-30.9, adult; E21.3 Hyperparathyroidism, unspecified; I25.10 Atherosclerotic heart disease of native coronary artery without angina pectoris; Z95.1 Presence of aortocoronary bypass graft; I48.91 Unspecified atrial fibrillation; Z79.01 Long term (current) use of anticoagulants; Z95.0 Presence of cardiac pacemaker; F41.9 Anxiety disorder, unspecified; F32.9 Major depressive disorder, single episode, unspecified; E87.5 Hyperkalemia; F03.90 Unspecified dementia, unspecified severity, without behavioral disturbance, psychotic disturbance, mood disturbance, and anxiety
CPT/HCPCS: 36415; 71046; 80048; 80053; 82550; 82553; 82948; 83735; 83880; 84484; 85025; 85610; 85730; 87040; 87071; 87205; 87493; 93005; 93306; 99284; J2001; J2543; J3370; J7030; J7050

== ENCOUNTER 2019-06-12 09:54 | Inpatient (IN) | payer MEDICARE ==
[~2019-06-12] VITALS: Ht 165.1 cm; Wt 82.6 kg
[~2019-06-12 09:54] MED LIST changes: +AURYXIA210 MG; +MIRTAZAPINE15 MG PO; +ULTRAM 50MG50 MG PO
[2019-06-12] MEDS ORDERED: PANTOPRAZOLE 40 MG 10ML VIAL IV STA (10:06)
[2019-06-12] MEDS ORDERED: TYLENOL WITH C1 EACH PO (10:08)
[2019-06-12] MEDS ORDERED: SODIUM CHLORIDE 0.9% 500ML 500 ML IV ONE (10:15)
[2019-06-12] MEDS ORDERED: SODIUM CHLORIDE 0.9% 250ML 250 ML ONE (10:24)
--- NOTE | 2019-06-12 11:20 | Diagnostic Imaging Report ---
EXAMINATION: CHEST SINGLE (PORTABLE) INDICATION: Back pain, hypotension COMPARISON: Chest radiograph 01/28/2019 FINDINGS: LINES/TUBES:Right-sided dialysis access likely HeRO graft, terminates in the superior right atrium. LUNGS:The lungs are moderately inflated. There is perihilar fullness and indistinctness of the pulmonary vasculature. Patchy bibasilar opacities left greater than right. PLEURA:No pleural effusion or pneumothorax. MEDIASTINUM:Cardiomediastinal silhouette is stably enlarged. . Atherosclerotic calcifications of the thoracic aorta. BONES/SOFT TISSUES:No acute osseous injury. ABDOMEN:No free air under the diaphragm. IMPRESSION: Patchy left greater than right basilar opacities may represent subsegmental atelectasis although superimposed aspiration or pneumonia could also have this appearance. Mild cardiomegaly. Signed by: Libertad Mancuso MD on 06/12/2019 11:16 AM
--- NOTE | 2019-06-12 11:23 | Diagnostic Imaging Report ---
Examination: CT head without contrast Clinical Indication: Confusion; altered mental status. Technique: Transaxial noncontrast images from the skull base through the vertex were obtained. Sagittal and coronal reformatted images were done. Dose modulation, iterative reconstruction, and/or weight based adjustment of the mA/kV was utilized to reduce the radiation dose to as low as reasonably achievable. Comparison: Head CT dated 03/23/2012. Findings: Scalp: No abnormalities. Bones: Intact. No fractures. No blastic or lytic lesions. Brain sulci: Generalized volume loss for patient's age. Ventricles: No hydrocephalus. Extra-axial space: No abnormalities. Parenchyma: There are new patchy areas of low-attenuation within periventricular white matter, nonspecific, but could represent microvascular ischemic disease. No masses, hemorrhage, or acute or chronic cortical based vascular insults. Suprasellar region: No abnormalities. Craniocervical junction: The foramen magnum is patent. No Chiari one malformation. Incidental findings: Atherosclerotic calcification of the cavernous and supraclinoid internal carotid and V4 segments of the bilateral vertebral arteries. Impression: 1. No acute intracranial finding. 2. Mild chronic microvascular ischemic change, new from prior head CT performed in 2012. 3. Unchanged generalized volume loss. Signed by: Dr. Precious Wilson M.D. on 06/12/2019 11:20 AM
[2019-06-12 12:07] LABS: BASOPHILS % 0.2 % (0.0-1.0); EOSINOPHILS # (AUTO) 0.1 (0.0-0.4); EOSINOPHILS % 0.8 % (0.0-6.0); HEMATOCRIT 37.7 % (34.2-44.1); HEMOGLOBIN 12.5 g/dL (12.0-16.0); LYMPHOCYTES # (AUTO) 0.7 (1.0-3.2); LYMPHOCYTES % 11.6 % (18.0-39.1); MEAN CORPUSCULAR HEMOGLOBIN 36.9 pg (28-32); MEAN CORPUSCULAR HGB CONC 33.2 g/dL (31-35); MEAN CORPUSCULAR VOLUME 111.2 fL (81-99); MONOCYTES # (AUTO) 0.4 (0.2-0.8); NEUTROPHILS % 79.8 % (38.7-80.0); PLATELET COUNT 128 x10e3/uL (140-360); RED BLOOD COUNT 3.39 x10e6/uL (3.6-5.1); RED CELL DISTRIBUTION WIDTH 17.8 % (11.7-14.4)
[2019-06-12 12:23] LABS: INR 4.61
[2019-06-12 12:25] LABS: PARTIAL THROMBOPLASTIN TIME 99.1 seconds (23.8-35.5)
[2019-06-12 12:28] LABS: PROTHROMBIN TIME 47.3 seconds (11.9-14.5)
[2019-06-12 12:32] LABS: ALBUMIN 3.2 g/dL (3.5-5.0); ALBUMIN/GLOBULIN RATIO 0.7 (0.8-2.0); ANION GAP 23.6 mmol/L (8-16); CALCIUM 8.5 mg/dL (8.4-10.2); CREATININE, SERUM 8.6 mg/dL (0.57-1.11); POTASSIUM 5.6 mmol/L (3.5-5.1)
[2019-06-12 12:38] LABS: CREATINE KINASE MB 2.2 ng/mL (0-5.0)
[2019-06-12] MEDS ORDERED: DEXTROSE 50% SYRINGE 50 ML IV STA (13:31)
[2019-06-12] MEDS ORDERED: SODIUM BICARBONATE 8.4% INJ 50 ML SYR IV STA (13:31)
[2019-06-12] MEDS ORDERED: INSULIN REGULAR, HUMAN 100 UNIT/1 ML 3ML VIAL IV ONE (13:45)
[2019-06-12] MEDS ORDERED: PHYTONADIONE 1 MG/0.5 ML AMP IM ONE (14:30)
[2019-06-12] MEDS ORDERED: SODIUM CHLORIDE 0.9% 1000ML 2,000 ML ONE (15:52)
[2019-06-12 16:00] VITALS: BP 136/64
[2019-06-12 17:07] VITALS: BP 136/64
[2019-06-12] MEDS ORDERED: SODIUM CHLORIDE 0.9% 1000ML 1,000 ML ONE (18:40)
[2019-06-12 20:00] VITALS: BP 92/57
--- NOTE | 2019-06-12 21:14 | Consultation ---
DATE OF CONSULTATION: 06/12/2019 HISTORY OF PRESENT ILLNESS: A 68-year-old lady, well known to our Nephrology Service, underlying diabetes, hypertension, prior CVA, partially dependent on activities of daily living, has presented to the emergency room, has missed her dialysis. Renal has been consulted for management of kidney failure. The patient currently lying supine, no apparent respiratory distress. She has a white count of 6.28, hemoglobin 12.5 with a chemistry showing potassium 5.6, bicarbonate 28, creatinine 8.6, and calcium 8.5. She had a Tylenol level 3.2. Ethyl alcohol less than 10. ALLERGIES: NO APPARENT DRUG ALLERGIES. CURRENT MEDICATIONS: The patient apparently was given a liter of saline bolus. She is on Protonix. She is found to have a high INR for which she has been given vitamin K, on insulin sliding scale. SOCIAL HISTORY: She does not smoke or drink. Her is also on dialysis, very supportive. FAMILY HISTORY: Significant for diabetes. PHYSICAL EXAMINATION: GENERAL: Awake, alert, lying supine. VITAL SIGNS: Blood pressure 97/54, pulse rate 73, afebrile, oxygen saturation 98% on room air, and respiratory rate 16. HEAD AND NECK: Cornea clear. Oral mucosa moist. LUNGS: Scattered rales, right side more than left. HEART: S1 and S2 audible. ABDOMEN: Otherwise soft and nontender. EXTREMITIES: Lower extremity examination, no edema. IMPRESSION AND PLAN: Mild fluid overload, high INR, Coumadin toxicity, end-stage renal disease, diabetes, and multiple comorbidities. Arrange for dialysis, fluid restriction, renal diet. I will correct hyperkalemia on dialysis. Dialysis nurse informed. MD CT Mora/MODL /[id number]
[2019-06-12 21:42] LABS: CREATINE KINASE MB 2.1 ng/mL (0-5.0)
[2019-06-13] VITALS (8 sets, daily range): BP systolic 92–122; BP diastolic 52–66
[2019-06-13 05:41] LABS: BASOPHILS % 0.2 % (0.0-1.0); EOSINOPHILS # (AUTO) 0.1 (0.0-0.4); EOSINOPHILS % 1.4 % (0.0-6.0); HEMATOCRIT 35.1 % (34.2-44.1); HEMOGLOBIN 11.5 g/dL (12.0-16.0); LYMPHOCYTES % 23.1 % (18.0-39.1); MEAN CORPUSCULAR HEMOGLOBIN 36.7 pg (28-32); MEAN CORPUSCULAR HGB CONC 32.8 g/dL (31-35); MEAN CORPUSCULAR VOLUME 112.1 fL (81-99); MONOCYTES # (AUTO) 0.3 (0.2-0.8); MONOCYTES % 7.5 % (4.4-11.3); NEUTROPHILS # (AUTO) 2.9 (2.1-6.9); NEUTROPHILS % 67.6 % (38.7-80.0); PLATELET COUNT 119 x10e3/uL (140-360); RED BLOOD COUNT 3.13 x10e6/uL (3.6-5.1); RED CELL DISTRIBUTION WIDTH 17.8 % (11.7-14.4)
[2019-06-13 06:35] LABS: ALBUMIN 2.6 g/dL (3.5-5.0); ALBUMIN/GLOBULIN RATIO 0.6 (0.8-2.0); ANION GAP 15.3 mmol/L (8-16); CALCIUM 8.3 mg/dL (8.4-10.2); CREATININE, SERUM 5.1 mg/dL (0.57-1.11); POTASSIUM 4.3 mmol/L (3.5-5.1)
[2019-06-13] MEDS ORDERED: ALPRAZOLAM 0.25 MG TAB PO PRN (09:30)
[2019-06-13] MEDS ORDERED: DEXTROSE 50% SYRINGE 50 ML IV PRN (09:30)
[2019-06-13] MEDS: INSULIN LISPRO 100 UNIT/1 ML 3ML VIAL SQ SCH ×3 (11:30→21:00)
[2019-06-13] MEDS ORDERED: SODIUM CHLORIDE 0.9% 250ML 250 ML ONE (12:18)
[2019-06-13] MEDS: CEFTRIAXONE SOD 1 GM/NS 50 ML 50 ML IV SCH (12:22)
[2019-06-13 14:43] LABS: BILIRUBIN,URINE NEGATIVE (NEGATIVE); CLARITY,URINE SL CLOUDY (CLEAR); COLOR,URINE STRAW (YELLOW); KETONES,URINE NEGATIVE (NEGATIVE); LEUKOCYTE ESTERASE ,URINE SMALL (NEGATIVE); NITRITE,URINE NEGATIVE (NEGATIVE); PROTEIN,URINE DIPSTICK 2+ (NEGATIVE); URINE UROBILINOGEN 0.2 mg/dL (0.2 - 1)
[2019-06-13 14:58] LABS: BACTERIA,URINE FEW /HPF; EPITHELIAL CELLS,URINE FEW /LPF; RBC,URINE 0-5 /HPF (0-5)
[2019-06-13] MEDS: SENNA-S TABLET PO SCH (17:12)
[2019-06-13] MEDS: ROPINIROLE HCL 0.25 MG TAB PO SCH (21:34)
[2019-06-13] MEDS: SIMVASTATIN 80 MG TAB PO SCH (21:34)
[2019-06-14] VITALS (7 sets, daily range): BP systolic 80–145; BP diastolic 47–69
[2019-06-14 06:00] LABS: INR 4.87
[2019-06-14 06:14] LABS: PROTHROMBIN TIME 49.5 seconds (11.9-14.5)
[2019-06-14] MEDS: INSULIN LISPRO 100 UNIT/1 ML 3ML VIAL SQ SCH ×4 (07:30→21:00)
[2019-06-14] MEDS: SENNA-S TABLET PO SCH ×2 (09:00→17:00)
[2019-06-14] MEDS: MIDODRINE 2.5 MG TAB PO SCH ×3 (09:50→16:00)
[2019-06-14] MEDS: CEFTRIAXONE SOD 1 GM/NS 50 ML 50 ML IV SCH ×2 (10:30→15:46)
[2019-06-14] MEDS ORDERED: SODIUM CHLORIDE 0.9% 1000ML 2,000 ML ONE (10:39)
[2019-06-14] MEDS ORDERED: MIDODRINE 2.5 MG TAB PO SCH (12:00)
[2019-06-14] MEDS ORDERED: SODIUM CHLORIDE 0.9% 250ML 250 ML ONE (15:09)
[2019-06-14] MEDS: ROPINIROLE HCL 0.25 MG TAB PO SCH (21:34)
[2019-06-14] MEDS: ACETAMINOPHEN/CODEINE 300MG - 30MG TAB PO PRN (21:34)
[2019-06-14] MEDS: SIMVASTATIN 80 MG TAB PO SCH (21:34)
[2019-06-15] VITALS (7 sets, daily range): BP systolic 94–127; BP diastolic 46–66
[2019-06-15] MEDS: INSULIN LISPRO 100 UNIT/1 ML 3ML VIAL SQ SCH ×4 (07:30→21:00)
[2019-06-15] MEDS: MIDODRINE 2.5 MG TAB PO SCH ×3 (08:00→16:00)
[2019-06-15] MEDS: SENNA-S TABLET PO SCH ×2 (09:00→17:00)
[2019-06-15 11:17] LABS: INR 3.48; PROTHROMBIN TIME 37.7 seconds (11.9-14.5)
[2019-06-15] MEDS: CEFTRIAXONE SOD 1 GM/NS 50 ML 50 ML IV SCH (16:00)
[2019-06-15] MEDS: SIMVASTATIN 80 MG TAB PO SCH (21:21)
[2019-06-15] MEDS: ROPINIROLE HCL 0.25 MG TAB PO SCH (21:21)
[2019-06-15] MEDS: ACETAMINOPHEN/CODEINE 300MG - 30MG TAB PO PRN (22:30)
[2019-06-16 04:30] VITALS: BP 129/69
[2019-06-16 06:06] LABS: INR 2.54; PROTHROMBIN TIME 29.3 seconds (11.9-14.5)
[2019-06-16] MEDS: INSULIN LISPRO 100 UNIT/1 ML 3ML VIAL SQ SCH ×3 (07:30→16:30)
[2019-06-16 07:40] VITALS: BP 150/62
[2019-06-16] MEDS ORDERED: SODIUM CHLORIDE 0.9% 1000ML 2,000 ML ONE (07:56)
[2019-06-16] MEDS: MIDODRINE 2.5 MG TAB PO SCH ×2 (08:00→12:00)
[2019-06-16 08:12] LABS: BASOPHILS % 0.5 % (0.0-1.0); EOSINOPHILS # (AUTO) 0.1 (0.0-0.4); EOSINOPHILS % 1.5 % (0.0-6.0); HEMATOCRIT 40.5 % (34.2-44.1); HEMOGLOBIN 13.2 g/dL (12.0-16.0); LYMPHOCYTES # (AUTO) 1.3 (1.0-3.2); LYMPHOCYTES % 32.1 % (18.0-39.1); MEAN CORPUSCULAR HEMOGLOBIN 36.4 pg (28-32); MEAN CORPUSCULAR HGB CONC 32.6 g/dL (31-35); MEAN CORPUSCULAR VOLUME 111.6 fL (81-99); MONOCYTES # (AUTO) 0.6 (0.2-0.8); MONOCYTES % 14.6 % (4.4-11.3); NEUTROPHILS # (AUTO) 2.1 (2.1-6.9); NEUTROPHILS % 50.3 % (38.7-80.0); PLATELET COUNT 175 x10e3/uL (140-360); RED BLOOD COUNT 3.63 x10e6/uL (3.6-5.1); RED CELL DISTRIBUTION WIDTH 17.7 % (11.7-14.4)
[2019-06-16 08:20] LABS: ANION GAP 20.2 mmol/L (8-16); CALCIUM 9.4 mg/dL (8.4-10.2); CREATININE, SERUM 6.92 mg/dL (0.57-1.11); POTASSIUM 4.2 mmol/L (3.5-5.1)
[2019-06-16] MEDS: SENNA-S TABLET PO SCH (09:00)
[2019-06-16 10:34] VITALS: BP 150/62
[2019-06-16 10:58] VITALS: BP 134/64
[2019-06-16 11:12] LABS: BILIRUBIN,URINE SMALL (NEGATIVE); CLARITY,URINE CLOUDY (CLEAR); COLOR,URINE YELLOW (YELLOW); KETONES,URINE NEGATIVE (NEGATIVE); LEUKOCYTE ESTERASE ,URINE LARGE (NEGATIVE); NITRITE,URINE NEGATIVE (NEGATIVE); PROTEIN,URINE DIPSTICK >=300 (NEGATIVE); URINE UROBILINOGEN 0.2 mg/dL (0.2 - 1)
[2019-06-16 12:19] LABS: BACTERIA,URINE FEW /HPF; EPITHELIAL CELLS,URINE RARE /LPF; RBC,URINE 0-5 /HPF (0-5); WBC,URINE (MAN) >50 /HPF (0-5)
[2019-06-16 15:37] VITALS: BP 103/63
[2019-06-16] MEDS: CEFTRIAXONE SOD 1 GM/NS 50 ML 50 ML IV SCH (16:00)
--- NOTE | 2019-06-16 22:29 | Discharge Summary ---
FINAL DIAGNOSES: 1. Status post toxic encephalopathy secondary to most likely urinary tract infection. 2. End-stage renal disease, on dialysis. 3. Baseline obesity. 4. Subtherapeutic anticoagulant therapy with warfarin. SUMMARY: The patient is a 68-year-old female, came in with INR of 4.6. She has also had altered mental status. CT scan did not reveal any significant problem. The patient was treated for presumed urinary tract infection. She was treated with Rocephin. She did better. She did receive dialysis as well. The patient is overall better. She is comfortable. The patient will go to skilled facility to continue with monitoring closely along with dialysis. No further IV antibiotic needed. The patient is otherwise stable. She will follow up once discharged from the facility. The patient will continue with her dialysis. The patient is stable. Medication reconciliation was done. MD TASIA Ocampo/SHELLEY /[id number]
== END 2019-06-16 18:15 | DRG 640 ==
LOC: ER 09:54 → ERHOLD 13:49 → MED/SURG2 15:35 → OBSVTOIN 06-13 09:25
PROVIDERS: ADMIT Internal Medicine; ATTEND Internal Medicine
PROC: 5A1D70Z Performance of Urinary Filtration, Intermittent, Less than 6 Hours Per Day (ICD-10-PCS; principal; 2019-06-12)
PROC: 5A1D70Z Performance of Urinary Filtration, Intermittent, Less than 6 Hours Per Day (ICD-10-PCS; 2019-06-14)
PROC: 5A1D70Z Performance of Urinary Filtration, Intermittent, Less than 6 Hours Per Day (ICD-10-PCS; 2019-06-16)
DX: E87.70 Fluid overload, unspecified (principal); N18.6 End stage renal disease; G92 Toxic encephalopathy; N39.0 Urinary tract infection, site not specified; F03.91 Unspecified dementia, unspecified severity, with behavioral disturbance; F05 Delirium due to known physiological condition; I12.0 Hypertensive chronic kidney disease with stage 5 chronic kidney disease or end stage renal disease; E11.22 Type 2 diabetes mellitus with diabetic chronic kidney disease; Z99.2 Dependence on renal dialysis; Z79.4 Long term (current) use of insulin; I25.10 Atherosclerotic heart disease of native coronary artery without angina pectoris; E78.5 Hyperlipidemia, unspecified; R25.2 Cramp and spasm; E66.9 Obesity, unspecified; M19.90 Unspecified osteoarthritis, unspecified site; F03.90 Unspecified dementia, unspecified severity, without behavioral disturbance, psychotic disturbance, mood disturbance, and anxiety; E87.5 Hyperkalemia; G47.00 Insomnia, unspecified; G25.81 Restless legs syndrome; F41.9 Anxiety disorder, unspecified; M51.36 Other intervertebral disc degeneration, lumbar region; Z68.30 Body mass index [BMI] 30.0-30.9, adult; Z95.1 Presence of aortocoronary bypass graft; Z95.810 Presence of automatic (implantable) cardiac defibrillator; Z82.49 Family history of ischemic heart disease and other diseases of the circulatory system; Z79.01 Long term (current) use of anticoagulants
CPT/HCPCS: 36415; 70450; 71045; 80048; 80053; 80320; 80329; 81001; 82550; 82553; 82948; 83735; 84484; 85025; 85610; 85730; 86704; 86705; 87040; 87071; 87086; 87205; 87340; 93005; 97139; 99284; G0378; J0696; J1817; J7030; J7050; J7799

== ENCOUNTER 2019-06-28 12:22 | Inpatient (IN) | payer MEDICARE, OTHER ==
[~2019-06-28] VITALS: Ht 165.1 cm; Wt 79.8 kg
[~2019-06-28 12:22] MED LIST changes: +TYLENOL WITH C1 EACH PO
[2019-06-28] MEDS ORDERED: SODIUM CHLORIDE 0.9% 250ML 250 ML IV ONE (12:45)
[2019-06-28] MEDS ORDERED: CEFEPIME 2 GM/NS 0.9% 100 ML 100 ML IV SCH (13:00)
[2019-06-28] MEDS ORDERED: VANCOMYCIN 1GM/NS 250 ML 250 ML IV ONE ×2 (13:00→16:30)
[2019-06-28] MEDS ORDERED: NALOXONE HCL INJ 0.4 MG/ML AMP IV STA (13:41)
[2019-06-28] MEDS ORDERED: NALOXONE HCL INJ 0.4 MG/ML AMP ONE ×2 (13:42→14:02)
[2019-06-28] MEDS ORDERED: NALOXONE HCL INJ 0.4 MG/ML AMP IV ONE (14:00)
[2019-06-28 14:01] LABS: CLARITY,URINE CLEAR (CLEAR); COLOR,URINE YELLOW (YELLOW); LEUKOCYTE ESTERASE ,URINE NEGATIVE (NEGATIVE); NITRITE,URINE NEGATIVE (NEGATIVE)
[2019-06-28 14:02] LABS: BILIRUBIN,URINE NEGATIVE (NEGATIVE); KETONES,URINE NEGATIVE (NEGATIVE); PROTEIN,URINE DIPSTICK 2+ (NEGATIVE); URINE UROBILINOGEN 0.2 mg/dL (0.2 - 1)
[2019-06-28 14:11] LABS: BACTERIA,URINE FEW /HPF; EPITHELIAL CELLS,URINE MANY /LPF
[2019-06-28 14:15] LABS: STREPTOCOCCUS GRP A ANTIGEN NEGATIVE (NEGATIVE)
[2019-06-28 14:21] LABS: PHENCYCLIDINE SCREEN,URINE NEGATIVE (NEGATIVE)
[2019-06-28 14:22] LABS: AMPHETAMINES SCREEN,URINE NEGATIVE (NEGATIVE); BENZODIAZEPINES SCREEN,URINE NEGATIVE (NEGATIVE)
[2019-06-28 14:24] LABS: INFLUENZAE A&B ANTIGEN (RAPID) NEGATIVE (NEGATIVE)
[2019-06-28 15:00] LABS: ALBUMIN 3.1 g/dL (3.5-5.0); ALBUMIN/GLOBULIN RATIO 0.6 (0.8-2.0); ANION GAP 22.2 mmol/L (8-16); CALCIUM 8.9 mg/dL (8.4-10.2); CREATININE, SERUM 7.87 mg/dL (0.57-1.11); MAGNESIUM 1.9 MG/DL (1.3-2.1)
[2019-06-28 15:01] LABS: SALICYLATE < 5.0 mg/dL (0-30)
[2019-06-28 15:02] LABS: POTASSIUM 5.2 mmol/L (3.5-5.1)
[2019-06-28 15:05] LABS: BASOPHILS % 0.3 % (0.0-1.0); HEMATOCRIT 38.6 % (34.2-44.1); HEMOGLOBIN 12.5 g/dL (12.0-16.0); LYMPHOCYTES # (AUTO) 1.2 (1.0-3.2); LYMPHOCYTES % 9.2 % (18.0-39.1); MEAN CORPUSCULAR HEMOGLOBIN 36.2 pg (28-32); MEAN CORPUSCULAR HGB CONC 32.4 g/dL (31-35); MEAN CORPUSCULAR VOLUME 111.9 fL (81-99); MONOCYTES % 8.1 % (4.4-11.3); NEUTROPHILS # (AUTO) 10.4 (2.1-6.9); NEUTROPHILS % 81.6 % (38.7-80.0); PLATELET COUNT 150 x10e3/uL (140-360); RED BLOOD COUNT 3.45 x10e6/uL (3.6-5.1); RED CELL DISTRIBUTION WIDTH 16.8 % (11.7-14.4)
[2019-06-28 15:08] LABS: CREATINE KINASE MB 8.5 ng/mL (0-5.0)
--- NOTE | 2019-06-28 15:24 | Diagnostic Imaging Report ---
EXAMINATION: Head CT HISTORY: Altered mental status, patient on dialysis COMPARISON: Head CT 06/12/2019 TECHNIQUE: Helical axial images of the head were obtained. Reformatted coronal and sagittal images from the axial data. Dose modulation, iterative reconstruction, and/or weight based adjustment of the mA/kV was utilized to reduce the radiation dose to as low as reasonably achievable. Image quality: Motion/streaking artifact limits the evaluation of the skull base and posterior cranial fossa. FINDINGS: Parenchyma: 1. Few scattered and mildly confluent periventricular white matter hypodensities, most likely nonspecific chronic microvascular ischemic changes. 2. Prominent likely physiologic versus calcium metabolism disorder related calcification of the globi pallidi. 3. No mass or hemorrhage. No CT evidence of acute territorial vascular insult. Extra-axial spaces:No abnormal density. No extra-axial fluid collections Brain volume: Generalized brain volume, more than what is expected for patient age. Ventricles: Mild ventriculomegaly, that is slightly out of proportion to the size of the cortical sulci, thinning and upward displacement of the corpus callosum, with relative partial effacement of the vertex region sulci. Some degree of normal pressure hydrocephalus cannot be excluded in the appropriate clinical setting. Arteries: No density suggestive of thrombus. Atherosclerotic calcification of the intra and extracranial vessels, likely related to the ERD. Dural sinuses: No abnormal density. Foramen magnum: No mass, Chiari malformation, or basilar invagination. Sella: No obvious mass. Paranasal/mastoid sinuses: Imaged portions unremarkable. Skull/Scalp: No lytic or blastic lesions. No fractures. IMPRESSION: 1. No acute intracranial hemorrhage or cortical infarcts. 2. Mild chronic microvascular ischemic changes. 3. Stable disproportionate ventriculomegaly as described. 4. Generalized brain volume loss, unchanged. Signed by: Dr. Narcisa Sanchez M.D. on 06/28/2019 3:21 PM
--- NOTE | 2019-06-28 15:49 | Diagnostic Imaging Report ---
Examination: Single AP view of the chest. COMPARISON: 06/12/2019 INDICATION: Yes RDD, altered mental status DISCUSSION: Right upper extremity HeRO graft is unchanged, with the tip terminating over the upper right atrium. Right upper extremity venous outflow stent partially visualized. Lungs remain well-inflated. Aeration of the lung bases has improved relative to 06/12/2019. No new consolidations. Stable enlargement of the cardiac silhouette with pulmonary venous congestion. No acute osseous abnormality. IMPRESSION: Improved aeration of the lung bases relative to 06/12/2019. Otherwise stable appearance of the chest, with enlargement of the cardiac silhouette and pulmonary venous congestion. Signed by: Dr. Hayden Sofia M.D. on 06/28/2019 3:45 PM
[2019-06-28] MEDS ORDERED: ONDANSETRON HCL INJ 2MG/ML 2ML 2 MG/ML VIAL IV PRN (16:15)
--- OUTSIDE RECORDS SUMMARY | 2019-06-28 16:20 | XMS REPORT | Continuity of Care Document ---
Author Author Gianni Wangdaizhijia MARE [id number] Address Unknown Phone Unavailable Care Team Providers Care Academic Support Assistant Name Role Phone [employer] Unavailable Un available Problems Problem Status Onset Date Classification Date Reported Comments Source SWOLLEN TONGUE Active 11/08/2018 [facility] DYSARTHIA Active 11/08/2018 [facility] HYPOTENSIVE Active 10/17/2018 [facility] HYPOXIA Active 10/17/2018 [facility] Hypoxemia 10/28/2018 [facility] HYPOXEMIA Active [facility] Medications Medication Details Route Status Patient Instructions Ordering Provider Order Date Source Thiamine Notes: (Same As: Fany min B1) No Longer Active 11/09/2018 [facility] Saline Flush 0.9% Notes: (Same as: BD Posiflush) No Longer Active 11/09/2018 [facility] Saline Flush 0.9% Notes: (Same as: BD Posiflush) No Longer Active 11/09/2018 [facility] Miralax 17 gm, PO, Daily, 0 Re fill(s) Active 11/08/2018 [facility] sodium polystyrene sulfonate 15 g/60 mL oral and rectal suspension 7.5 gm = 30 mL, Daily, on WEDNESDAY, Y, WEDNESDAY, 0 Refill(s) Active 11/08/2018 [facility] sevelamer 800 mg oral tablet 1 ,600 mg = 2 tab, PO, TID- Meals, # 180 tab, 0 Refill(s) Active 11/08/2018 [facility] Metoclopramide 5 MG Oral Tablet [Reglan] 5 mg = 1 tab, PO, QID, # 28 tab, 0 Refill(s) Active 11/08/2018 [facility] tramadol hydrochloride 50 MG Oral Tablet 50 mg = 1 tab, PO, Q6H, PRN Pain, # 40 tab, 0 Refill(s) Active 11/08/2018 [facility] Lactulose 667 MG/ML Oral Solution 20 gm = 30 mL, PO, Daily, PRN constipation, # 240 mL, 0 Refill(s) Active 11/08/2018 [facility] Aspirin Notes: Take with food. Inactive 11/08/2018 [facility] Warfarin Notes: Nurse to ensur e documentation of patient education per anticoagulation policy. Avoid large intake of vitamin-K containing foods diet. (Same As: Coumadin) WASTE: F/P - P Waste Black; E - P Waste Black Inactive 10/26/2018 [facility] midodrine 5 mg oral tablet 10 mg = 2 tab, PO, TID, # 90 tab, 0 Refill(s) Active 10/26/2018 [facility] heparin Notes: porcine heparin No Longer Active 10/26/2018 [facility] Warfarin Notes: Nurse to ensur e documentation of patient education per anticoagulation policy. Avoid large intake of vitamin-K containing foods diet. (Same As: Coumadin) WASTE: F/P - P Waste Black; E - P Waste Black No Longer Active 10/24/2018 [facility] Rocephin + sterile water 10 mL Notes: (Same As: Rocephin). Use with 100 mL NS and infuse over 30 min MEDICATION WASTE Product Size: 1000 mg Product Wasted: ___ mg No Longer Active 10/24/2018 [facility] Coumadin Notes: Nurse to ensur e documentation of patient education per anticoagulation policy. Avoid large intake of vitamin-K containing foods diet. (Same As: Coumadin) WASTE: F/P - P Waste Black; E - P Waste Black No Longer Active 10/23/2018 [facility] Warfarin Notes: Nurse to ensur e documentation of patient education per anticoagulation policy. Avoid large intake of vitamin-K containing foods diet. (Same As: Coumadin) WASTE: F/P - P Waste Black; E - P Waste Black No Longer Active 10/21/2018 [facility] morphine 0.5 mg/mL preservative-free inj ectable solution Notes: (Same as:MORPhine Sulfate) Inactive 10/20/2018 [facility] Aspirin Notes: (Do Not Crush) Do not crush or chew. Inactive 10/20/2018 [facility] Nitroglycerin Notes: (Same as: Nitroquick, Nitrostat) "Do Not Crush" Sublingual tablet No Longer Active 10/20/2018 [facility] Midodrine Notes: (Same as:Proa matine) No Longer Active 10/20/2018 [facility] Midodrine Notes: (Same as:Proa matine) Inactive 10/20/2018 [facility] rOPINIRole 0.5 mg oral tablet 0.5 mg = 1 tab, PO, Bedtime, 0 Refill(s) Active 10/19/2018 [facility] acetaminophen-codeine #3 1 tab , PO, Q6H, 0 Refill(s) Active 10/19/2018 [facility] Alprazolam 0.25 MG Oral Tablet 0.25 mg = 1 tab, PO, Q6H, PRN anxiety, 0 Refill(s) Active 10/19/2018 [facility] cephalexin 500 mg oral capsule 500 mg = 1 cap, PO, BID, 0 Refill(s) No Longer Active 10/19/2018 [facility] sennosides, LONGTERM 0 Refill(s) Active 10/19/2018 [facility] ondansetron 4 mg oral tablet 4 mg = 1 tab, PO, Q4H, PRN Vomiting, under the tounge, 0 Refill(s) Active 10/19/2018 [facility] Mirtazapine 15 MG Oral Tablet 15 mg = 1 tab, PO, Bedtime, 0 Refill(s) Active 10/19/2018 [facility] tramadol hydrochloride 50 MG Oral Tablet 50 mg = 1 tab, PO, Q6H, PRN Pain Score 4-6, 0 Refill(s) Active 10/19/2018 [facility] midodrine 10 mg oral tablet 12 0, 0 Refill(s) Active 10/19/2018 [facility] warfarin 2 mg oral tablet 2 mg = 1 tab, PO, Bedtime, 0 Refill(s) Active 10/19/2018 [facility] Midodrine Notes: (Same as:Proa matine) No Longer Active 10/18/2018 [facility] Acetaminophen Notes: Do not ex ceed 4 gm/day. (Same as: Tylenol) No Longer Active 10/18/2018 [facility] Dextrose 50% Syringe 12.5 gm, 25 mL, Route: IVP, Drug Form: INJ, Dosing Weight 84, kg, PRN, PRN Blood Glucose Results, Start date: 10/18/18 2:42:00 CDT, Duration: 30 day, Stop date: 11/17/18 2:41:00 CDT, 0 No Longer Active 10/18/2018 [facility] Glucagon 1 mg, Route: IM, Drug form: PDR/INJ, PRN, Dosing Weight 84, kg, PRN Blood Glucose Results, Start date: 10/18/18 2:42:00 CDT, Duration: 30 day, Stop date: 11/17/18 2:41:00 CDT, 0 No Longer Active 10/18/2018 [facility] Ondansetron Notes: (Same as: Lluvia yan) MEDICATION WASTE Product Size: 4 mg Product Wasted: ___ mg No Longer Active 10/18/2018 [facility] Acetaminophen 325 MG / Hydrocodone Elom trate 5 MG Oral Tablet [Belsano 5/325] Notes: (Same as: Belsano 325/5) Do not ex ceed 4gm/day of acetaminophen. No Longer Activ e 10/18/2018 [facility] Hydralazine Notes: (Same as: A presoline) Push over 5 minutes No Longer Active 10/18/2018 [facility] Acetaminophen 300 MG / Codeine Phosphate 30 MG Oral Tablet [Tylenol with Codeine #3] 1 tab, Route: PO, Drug Form: TAB, Dosing Weight 90.909, kg, ONCE, STAT, Start date: 10/17/18 20:31:00 CDT, Stop date: 10/17/18 20:31:00 CDT Inactive 10/18/2018 [facility] Allergies, Adverse Reactions, Alerts Substance Category Reaction Severity Reaction type Status Date Reported Comments Source No Known Medication Allergies Assertion Drug aller gy [facility] Immunizations No Data Provided for This Section Results Order Name Results Value Reference Range Date Interpretation Comments Source CHEM PANEL Glucose Lvl 121 70 - 99 11/10/2018 [facility] CHEM PANEL BUN 23 7 - 22 11/10/2018 [facility] CHEM PANEL Creatinine Lvl 4.08 0.50 - 1.40 11/10/2018 [facility] CHEM PANEL Sodium Lvl 137 135 - 145 11/10/2018 [facility] CHEM PANEL Potassium Lvl 4.9 3.5 - 5.1 11/10/2018 [facility] CHEM PANEL Chloride Lvl 100 95 - 109 11/10/2018 [facility] CHEM PANEL CO2 31 24 - 32 11/10/2018 [facility] CHEM PANEL Calcium Lvl 8.7 8.5 - 10.5 11/10/2018 [facility] CHEM PANEL eGFR 11 11/10/2018 Result Comment: The eGFR is calculated using the CKD-EPI formula. In most young, healthy individuals the eGFR will be >90 mL/min/1.73m2. The eGFR declines with age. An eGFR of 60-89 may be normal in some populations, particularly the elderly, for whom the CKD-EPI formula has not been extensively validated. Use of the eGFR is not recommended in the following populations:

Individuals with unstable creatinine concentrations, including patients and those with serious co-morbid conditions.

Patients with extremes in muscle mass or diet.

The data above are obtained from the National Kidney Disease Education Program (NKDEP) which additionally recommends that when the eGFR is used in patients with extremes of body mass index for purposes of drug dosing, the eGFR should be multiplied by the estimated BMI. [facility] CHEM PANEL AGAP 10.9 10.0 - 20.0 11/10/2018 [facility] HEMATOLOGY Segs 52.9 45.0 - 75.0 11/10/2018 [facility] Lymphocytes 30.0 20.0 - 40.0 11/10/2018 [facility] Monocytes 12.6 2.0 - 12.0 11/10/2018 [facility] HEMATOLOGY Eosinophils 3.5 0.0 - 4.0 11/10/2018 [facility] Basophils 1.0 0.0 - 1.0 11/10/2018 [facility] Neutrophils # 2.8 1.5 - 8.1 11/10/2018 [facility] Lymphocytes # 1.6 1.0 - 5.5 11/10/2018 [facility] Monocytes # 0.7 0.0 - 0.8 11/10/2018 [facility] Eosinophils # 0.2 0.0 - 0.5 11/10/2018 [facility] Basophils # 0.1 0.0 - 0.2 11/10/2018 [facility] Macrocyte 2+ *ABN* (11/10/18 4:30 AM) None Seen 11/10/2018 [facility] WBC 5.2 3.7 - 10.4 11/10/2018 [facility] RBC 3.31 4.20 - 5.40 11/10/2018 [facility] Hgb 12.2 12.0 - 16.0 11/10/2018 [facility] Hct 36.0 36.0 - 48.0 11/10/2018 [facility] MCV 108.9 80.0 - 98.0 11/10/2018 [facility] MCH 36.9 27.0 - 31.0 11/10/2018 [facility] HEMATOLOGY MCHC 33.9 32.0 - 36.0 11/10/2018 [facility] HEMATOLOGY RDW 15.6 11.5 - 14.5 11/10/2018 [facility] HEMATOLOGY Platelet 192 133 - 450 11/10/2018 [facility] HEMATOLOGY MPV 8.9 7.4 - 10.4 11/10/2018 [facility] IMMUNOLOGY Hep Bs Ag Negat tiffani *NA* (11/09/18 5:50 PM) Negative 11/09/2018 [facility] LIPIDS Trig 433 <=149 mg/dL 11/09/2018 [facility] LIPIDS Chol 276 <=199 mg/dL 11/09/2018 [facility] LIPIDS HDL 43 >=61 mg/dL 11/09/2018 [facility] LIPIDS CHD Risk 6.42 3.90 - 5.80 11/09/2018 [facility] LIPIDS LDL (Calculated) See Note mg/dL <=99 mg/dL 11/09/2018 Result Comment: LDL cholesterol cannot b e calculated due to very high triglycerides (>400 mg/dL). Recommend Direct LDL if clinically indicated. [facility] LIPIDS VLDL See Note 4 *NA* (11/09/18 2:31 AM) 11/09/2018 Result Comment: VLDL - Emily sterol level cannot be accurately calculated due to very high triglycerides (>400 mg/dL). [facility] SPECIAL CHEMISTRY Hgb A1C 5.6 <=5.6 % 11/09/2018 [facility] HEMATOLOGY PT 16.0 12.0 - 14.7 11/08/2018 [facility] HEMATOLOGY INR 1.31 0.85 - 1.17 11/08/2018 [facility] HEMATOLOGY PTT 33.6 22.9 - 35.8 11/08/2018 [facility] CARDIAC ENZYMES Total CK 86 12 - 191 11/08/2018 [facility] CARDIAC ENZYMES Troponin-I <0.02 0.00 - 0.40 11/08/2018 [facility] CHEM PANEL Magnesium Lvl 2.7 1.8 - 2.4 11/08/2018 [facility] ELECTROLYTES AGAP 11.1 10.0 - 20.0 11/08/2018 [facility] ELECTROLYTES Glucose Lvl 111 70 - 99 11/08/2018 [facility] ELECTROLYTES BUN 35 7 - 22 11/08/2018 [facility] ELECTROLYTES Creatinine Lvl 5.1 8 0.50 - 1.40 11/08/2018 [facility] ELECTROLYTES Sodium Lvl 132 135 - 145 11/08/2018 [facility] ELECTROLYTES Potassium Lvl 5.1 3.5 - 5.1 11/08/2018 [facility] ELECTROLYTES Chloride Lvl 97 95 - 109 11/08/2018 [facility] ELECTROLYTES CO2 29 24 - 32 11/08/2018 [facility] ELECTROLYTES Calcium Lvl 9.6 8.5 - 10.5 11/08/2018 [facility] ELECTROLYTES eGFR 8 11/08/2018 Result Comment: The eGFR is calculated using the CKD-EPI formula. In most young, healthy individuals the eGFR will be >90 mL/min/1.73m2. The eGFR declines with age. An eGFR of 60-89 may be normal in some populations, particularly the elderly, for whom the CKD-EPI formula has not been extensively validated. Use of the eGFR is not recommended in the following populations:

Individuals with unstable creatinine concentrations, including patients and those with serious co-morbid conditions.

Patients with extremes in muscle mass or diet.

The data above are obtained from the National Kidney Disease Education Program (NKDEP) which additionally recommends that when the eGFR is used in patients with extremes of body mass index for purposes of drug dosing, the eGFR should be multiplied by the estimated BMI. [facility] HEMATOLOGY WBC 8.0 3.7 - 10.4 11/08/2018 [facility] RBC 3.21 4.20 - 5.40 11/08/2018 [facility] Hgb 12.0 12.0 - 16.0 11/08/2018 [facility] Hct 34.7 36.0 - 48.0 11/08/2018 [facility] MCV 107.9 80.0 - 98.0 11/08/2018 [facility] MCH 37.2 27.0 - 31.0 11/08/2018 [facility] MCHC 34.5 32.0 - 36.0 11/08/2018 [facility] RDW 15.9 11.5 - 14.5 11/08/2018 [facility] Platelet 207 133 - 450 11/08/2018 [facility] MPV 9.1 7.4 - 10.4 11/08/2018 [facility] Segs 46.5 45.0 - 75.0 11/08/2018 [facility] Lymphocytes 37.0 20.0 - 40.0 11/08/2018 [facility] HEMATOLOGY Monocytes 13.1 2.0 - 12.0 11/08/2018 [facility] HEMATOLOGY Eosinophils 2.6 0.0 - 4.0 11/08/2018 [facility] Basophils 0.8 0.0 - 1.0 11/08/2018 [facility] Neutrophils # 3.7 1.5 - 8.1 11/08/2018 [facility] Lymphocytes # 3.0 1.0 - 5.5 11/08/2018 [facility] Monocytes # 1.0 0.0 - 0.8 11/08/2018 [facility] Eosinophils # 0.2 0.0 - 0.5 11/08/2018 [facility] Basophils # 0.1 0.0 - 0.2 11/08/2018 [facility] Macrocyte 2+ *ABN* (11/08/18 2:28 PM) None Seen 11/08/2018 [facility] PT 25.3 12.0 - 14.7 10/26/2018 [facility] INR 2.36 0.85 - 1.17 10/26/2018 [facility] ELECTROLYTES AGAP 13.9 10.0 - 20.0 10/26/2018 [facility] ELECTROLYTES Glucose Lvl 97 70 - 99 10/26/2018 [facility] ELECTROLYTES BUN 34 7 - 22 10/26/2018 [facility] ELECTROLYTES Creatinine Lvl 4.3 7 0.50 - 1.40 10/26/2018 [facility] ELECTROLYTES Sodium Lvl 137 135 - 145 10/26/2018 [facility] ELECTROLYTES Potassium Lvl 3.9 3.5 - 5.1 10/26/2018 [facility] ELECTROLYTES Chloride Lvl 101 95 - 109 10/26/2018 [facility] ELECTROLYTES CO2 26 24 - 32 10/26/2018 [facility] ELECTROLYTES Calcium Lvl 8.4 8.5 - 10.5 10/26/2018 [facility] ELECTROLYTES eGFR 10 10/26/2018 Result Comment: The eGFR is calculated using the CKD-EPI formula. In most young, healthy individuals the eGFR will be >90 mL/min/1.73m2. The eGFR declines with age. An eGFR of 60-89 may be normal in some populations, particularly the elderly, for whom the CKD-EPI formula has not been extensively validated. Use of the eGFR is not recommended in the following populations:

Individuals with unstable creatinine concentrations, including patients and those with serious co-morbid conditions.

Patients with extremes in muscle mass or diet.

The data above are obtained from the National Kidney Disease Education Program (NKDEP) which additionally recommends that when the eGFR is used in patients with extremes of body mass index for purposes of drug dosing, the eGFR should be multiplied by the estimated BMI. [facility] Segs 41.4 45.0 - 75.0 10/26/2018 [facility] Lymphocytes 45.2 20.0 - 40.0 10/26/2018 [facility] Monocytes 8.1 2.0 - 12.0 10/26/2018 [facility] Eosinophils 4.0 0.0 - 4.0 10/26/2018 [facility] Basophils 1.3 0.0 - 1.0 10/26/2018 [facility] Neutrophils # 1.3 1.5 - 8.1 10/26/2018 [facility] Lymphocytes # 1.4 1.0 - 5.5 10/26/2018 [facility] Monocytes # 0.3 0.0 - 0.8 10/26/2018 [facility] Eosinophils # 0.1 0.0 - 0.5 10/26/2018 [facility] Macrocyte 2+ *ABN* (10/26/18 7:20 AM) None Seen 10/26/2018 [facility] WBC 3.1 3.7 - 10.4 10/26/2018 [facility] RBC 2.87 4.20 - 5.40 10/26/2018 [facility] Hgb 10.8 12.0 - 16.0 10/26/2018 [facility] Hct 31.2 36.0 - 48.0 10/26/2018 [facility] MCV 108.9 80.0 - 98.0 10/26/2018 [facility] MCH 37.7 27.0 - 31.0 10/26/2018 [facility] MCHC 34.6 32.0 - 36.0 10/26/2018 [facility] RDW 16.8 11.5 - 14.5 10/26/2018 [facility] Platelet 169 133 - 450 10/26/2018 [facility] MPV 9.0 7.4 - 10.4 10/26/2018 [facility] ELECTROLYTES AGAP 15.1 10.0 - 20.0 10/25/2018 [facility] ELECTROLYTES Glucose Lvl 109 70 - 99 10/25/2018 [facility] ELECTROLYTES BUN 32 7 - 22 10/25/2018 [facility] ELECTROLYTES Creatinine Lvl 4.6 6 0.50 - 1.40 10/25/2018 [facility] ELECTROLYTES Sodium Lvl 137 135 - 145 10/25/2018 [facility] ELECTROLYTES Potassium Lvl 4.1 3.5 - 5.1 10/25/2018 [facility] ELECTROLYTES Chloride Lvl 99 95 - 109 10/25/2018 [facility] ELECTROLYTES CO2 27 24 - 32 10/25/2018 [facility] ELECTROLYTES Calcium Lvl 8.9 8.5 - 10.5 10/25/2018 [facility] ELECTROLYTES eGFR 9 10/25/2018 Result Comment: The eGFR is calculated using the CKD-EPI formula. In most young, healthy individuals the eGFR will be >90 mL/min/1.73m2. The eGFR declines with age. An eGFR of 60-89 may be normal in some populations, particularly the elderly, for whom the CKD-EPI formula has not been extensively validated. Use of the eGFR is not recommended in the following populations:

Individuals with unstable creatinine concentrations, including patients and those with serious co-morbid conditions.

Patients with extremes in muscle mass or diet.

The data above are obtained from the National Kidney Disease Education Program (NKDEP) which additionally recommends that when the eGFR is used in patients with extremes of body mass index for purposes of drug dosing, the eGFR should be multiplied by the estimated BMI. [facility] HEMATOLOGY Segs 58.4 45.0 - 75.0 10/25/2018 [facility] Lymphocytes 25.0 20.0 - 40.0 10/25/2018 [facility] Monocytes 12.8 2.0 - 12.0 10/25/2018 [facility] HEMATOLOGY Eosinophils 2.9 0.0 - 4.0 10/25/2018 [facility] HEMATOLOGY Basophils 0.9 0.0 - 1.0 10/25/2018 [facility] HEMATOLOGY Neutrophils # 2.8 1.5 - 8.1 10/25/2018 [facility] Lymphocytes # 1.2 1.0 - 5.5 10/25/2018 [facility] Monocytes # 0.6 0.0 - 0.8 10/25/2018 [facility] Eosinophils # 0.1 0.0 - 0.5 10/25/2018 [facility] Macrocyte 3+ *NA* (10/25/18 5:10 AM) None Seen 10/25/2018 [facility] HEMATOLOGY WBC 4.8 3.7 - 10.4 10/25/2018 [facility] HEMATOLOGY RBC 3.17 4.20 - 5.40 10/25/2018 [facility] Hgb 12.0 12.0 - 16.0 10/25/2018 [facility] Hct 34.8 36.0 - 48.0 10/25/2018 [facility] MCV 109.8 80.0 - 98.0 10/25/2018 [facility] MCH 37.7 27.0 - 31.0 10/25/2018 [facility] MCHC 34.3 32.0 - 36.0 10/25/2018 [facility] RDW 16.5 11.5 - 14.5 10/25/2018 [facility] Platelet 172 133 - 450 10/25/2018 [facility] MPV 8.9 7.4 - 10.4 10/25/2018 [facility] PT 20.2 12.0 - 14.7 10/25/2018 [facility] HEMATOLOGY INR 1.77 0.85 - 1.17 10/25/2018 [facility] PT 17.5 12.0 - 14.7 10/24/2018 [facility] INR 1.47 0.85 - 1.17 10/24/2018 [facility] CHEM PANEL Glucose Lvl 103 70 - 99 10/24/2018 [facility] CHEM PANEL BUN 59 7 - 22 10/24/2018 [facility] CHEM PANEL Creatinine Lvl 7.46 0.50 - 1.40 10/24/2018 [facility] CHEM PANEL Sodium Lvl 138 135 - 145 10/24/2018 [facility] CHEM PANEL Potassium Lvl 4.5 3.5 - 5.1 10/24/2018 [facility] CHEM PANEL Chloride Lvl 101 95 - 109 10/24/2018 [facility] CHEM PANEL CO2 23 24 - 32 10/24/2018 [facility] CHEM PANEL AGAP 18.5 10.0 - 20.0 10/24/2018 [facility] CHEM PANEL Calcium Lvl 8.7 8.5 - 10.5 10/24/2018 [facility] CHEM PANEL eGFR 5 10/24/2018 Result Comment: The eGFR is calculated using the CKD-EPI formula. In most young, healthy individuals the eGFR will be >90 mL/min/1.73m2. The eGFR declines with age. An eGFR of 60-89 may be normal in some populations, particularly the elderly, for whom the CKD-EPI formula has not been extensively validated. Use of the eGFR is not recommended in the following populations:

Individuals with unstable creatinine concentrations, including patients and those with serious co-morbid conditions.

Patients with extremes in muscle mass or diet.

The data above are obtained from the National Kidney Disease Education Program (NKDEP) which additionally recommends that when the eGFR is used in patients with extremes of body mass index for purposes of drug dosing, the eGFR should be multiplied by the estimated BMI. [facility] HEMATOLOGY WBC 5.5 3.7 - 10.4 10/24/2018 [facility] RBC 2.90 4.20 - 5.40 10/24/2018 [facility] Hgb 11.0 12.0 - 16.0 10/24/2018 [facility] Hct 31.5 36.0 - 48.0 10/24/2018 [facility] MCV 108.7 80.0 - 98.0 10/24/2018 [facility] MCH 37.8 27.0 - 31.0 10/24/2018 [facility] MCHC 34.8 32.0 - 36.0 10/24/2018 [facility] RDW 16.8 11.5 - 14.5 10/24/2018 [facility] Platelet 161 133 - 450 10/24/2018 [facility] MPV 9.1 7.4 - 10.4 10/24/2018 [facility] Segs 51.0 45.0 - 75.0 10/24/2018 [facility] Lymphocytes 32.5 20.0 - 40.0 10/24/2018 [facility] Monocytes 9.9 2.0 - 12.0 10/24/2018 [facility] HEMATOLOGY Eosinophils 5.6 0.0 - 4.0 10/24/2018 [facility] Basophils 1.0 0.0 - 1.0 10/24/2018 [facility] Neutrophils # 2.8 1.5 - 8.1 10/24/2018 [facility] Lymphocytes # 1.8 1.0 - 5.5 10/24/2018 [facility] Monocytes # 0.5 0.0 - 0.8 10/24/2018 [facility] Eosinophils # 0.3 0.0 - 0.5 10/24/2018 [facility] HEMATOLOGY Basophils # 0.1 0.0 - 0.2 10/24/2018 [facility] HEMATOLOGY Macrocyte 2+ *ABN* (10/24/18 4:58 AM) None Seen 10/24/2018 [facility] URINE AND STOOL UA Turbidity Marked *ABN* (10/23/18 6:55 PM) Clear 10/23/2018 [facility] URINE AND STOOL UA Spec Grav 1.008 <=1.030 10/23/2018 [facility] URINE AND STOOL UA pH 8.0 5.0 - 8.0 10/23/2018 [facility] URINE AND STOOL UA Protein 100 mg/dL Negative mg/dL 10/23/2018 [facility] URINE AND STOOL UA Glucose 50 mg/dL Negative mg/dL 10/23/2018 [facility] URINE AND STOOL UA Ketones Negative mg/dL Negative mg/dL 10/23/2018 [facility] URINE AND STOOL UA Bili Negative *NA* (10/23/18 6:55 PM) Negative 10/23/2018 [facility] URINE AND STOOL UA Blood Small *ABN* (10/23/18 6:55 PM) Negative 10/23/2018 [facility] URINE AND STOOL UA Nitrite Negative (10/23/18 6:55 PM) Negative 10/23/2018 [facility] URINE AND STOOL UA Leuk Est Large *ABN* (10/23/18 6:55 PM) Negative 10/23/2018 [facility] URINE AND STOOL UA Sq Epi Many /LPF Few /LPF 10/23/2018 [facility] URINE AND STOOL UA WBC >182 0 - 5 10/23/2018 [facility] URINE AND STOOL UA RBC 19 0 - 2 10/23/2018 [facility] URINE AND STOOL UA Bacteria Many /HPF None Seen /HPF 10/23/2018 [facility] URINE AND STOOL UA Mucus Few /LPF None Seen /LPF 10/23/2018 [facility] URINE AND STOOL UA Trans Epi 41 <=0 /LPF 10/23/2018 [facility] URINE AND STOOL UA Color Red 10/23/2018 [facility] URINE AND STOOL UA Urobilinogen <=1.0 mg/dL 0.1 - 1.0 10/23/2018 [facility] Culture: Urine <10,000 CFU/mL Skin Celine 10/23/2018 [facility] HEMATOLOGY Plt Morph Evelyn l (10/23/18 5:16 AM) Normal 10/23/2018 [facility] HEMATOLOGY Basophils # 0.1 0.0 - 0.2 10/23/2018 [facility] CARDIAC ENZYMES Troponin-I <0.02 0.00 - 0.40 10/21/2018 [facility] CARDIAC ENZYMES Troponin-I <0.02 0.00 - 0.40 10/20/2018 [facility] CHEM PANEL Magnesium Lvl 2.3 1.8 - 2.4 10/20/2018 [facility] HEMATOLOGY Plt Morph Evelyn l (10/19/18 5:09 AM) Normal 10/19/2018 [facility] HEMATOLOGY Basophils # 0.1 0.0 - 0.2 10/19/2018 [facility] IMMUNOLOGY Hep Bs Ag Negat tiffani *NA* (10/19/18 5:06 AM) Negative 10/19/2018 [facility] BLOOD BANK RESULTS ABO/Rh O NEG 10/17/2018 [facility] BLOOD BANK RESULTS Antibody Scrn Negative (10/17/18 6:16 PM) 10/17/2018 [facility] CARDIAC ENZYMES Troponin-I <0.02 0.00 - 0.40 10/17/2018 [facility] CHEM PANEL Globulin 4.3 2.7 - 4.2 10/17/2018 [facility] CHEM PANEL A/G Ratio 0.7 0.7 - 1.6 10/17/2018 [facility] CHEM PANEL Bili Indirect >0.7 0.0 - 1.0 10/17/2018 [facility] CHEM PANEL Total Protein 7.5 6.4 - 8.4 10/17/2018 [facility] CHEM PANEL Albumin Lvl 3.2 3.5 - 5.0 10/17/2018 [facility] CHEM PANEL ALT 20 0 - 65 10/17/2018 [facility] CHEM PANEL AST 22 0 - 37 10/17/2018 [facility] CHEM PANEL Alk Phos 59 39 - 136 10/17/2018 [facility] CHEM PANEL Bili Total 0.8 0.2 - 1.3 10/17/2018 [facility] CHEM PANEL Bili Direct <0.1 0.0 - 0.3 10/17/2018 [facility] HEMATOLOGY PTT 55.7 22.9 - 35.8 10/17/2018 [facility] Pathology Reports No Data Provided for This Section Diagnostic Reports Report Value Date Source Chest 1view DX Patient Name: David ESPINOSA : 1950 Age: 68 years, Female MR: [id number] Study: Chest 1view DX 11/08/2018 12:30 CDT Indication: - back pain, chest pain. Comparison: Portable chest 10/20/2018 Findings: Lines/tubes: Right vascular catheter, extending from the right upper extremity, with the tip projecting over the expected region of the right atrium. Cardiovascular: Normal cardiac silhouette. Atherosclerotic calcifications. Vascular stent projects over the left axillary region. Mediastinum: No mediastinal or hilar mass or lymphadenopathy. Lungs: No parenchymal mass. No focal consolidation. Left lung base atelectasis. Pleura: Small left pleural effusion. No pneumothorax. Soft tissues: Normal. Bones: No acute osseous abnormality. Degenerative changes of the thoracic spine. IMPRESSION: Small left pleural effusion. SL: [id number] 11/08/2018 [facility] Brain wo contrast CT Patient N russ: MARE ESPINOSA : 1950; Age: 68 years y/o Female MR: [id number] Study: Brain wo contrast CT 11/08/2018 12:30 CDT Ordering Physician: Georges Lobo MD Clinical Indication: - tongue swelling vs numbness?, headache; Comparison: None TECHNIQUE: CT images were obtained from the foramen magnum to the vertex without the use of intravenous contrast on a multidetector CT. Coronal and sagittal reconstructions were obtained. CT imaging performed at this location utilizes radiation dose optimization techniques which include one or more of the following: -Automated exposure control -Adjustment of the mA and/or kV accordin g to patient size -Use of iterative reconstruction technLP Amina ue CT Radiation Dose DLP 902 mGy-cm FINDINGS: There is no evidence of acute intracranial hemorrhage, subacute territorial infarct, mass effect, midline shift, or extra-axial fluid collection. Please note that acute infarcts can be occult on CT. There is mild generalized cerebral volume loss with associated ventricular prominence. There are mild nonspecific supratentorial white matter hypodensities likely representing chronic small vessel ischemic changes in this age. There are no chronic territorial infarcts. There are calcifications in the carotid siphons and intradural vertebral arteries. The calvarium, paranasal sinuses and mastoids are unremarkable. IMPRESSION: Mild age-related changes without evidence of acute intracranial process. If there is further concern for intracranial pathology or acute stroke, further assessment with an MRI of the brain should be considered. SL: [id number] 11/08/2018 [facility] 1view DX Clinical Indica tion: - shortness of breath Comparison: None FINDINGS: A curvilinear structure is identified over the right axillary and right internal jugular venous region with its distal tip projecting over the right atrium, suggesting a HeRO graft. Median sternotomy wires are in place. A pulse generator is identified over the left upper abdominal quadrant with leads projecting over the inferior margin of the heart. A recorder device is identified over the left lateral margin of the cardiac silhouette. The cardiac silhouette is at the upper limits of normal for size. The superior mediastinal contours are within normal limits for appearance. The thoracic aorta appears tortuous and calcified. There is central pulmonary venous congestion with minimal linear opacities at the left lung base. No focal pulmonary consolidation, pneumothorax, or large pleural effusion. Surgical clips are identified over the right upper abdominal quadrant. IMPRESSION: 1. Post surgical changes of the chest wi th a catheter over the right axillary and right internal jugular venous regions as described above, central pulmonary venous congestion, and minimal left basilar subsegmental atelectasis versus scarring. No focal pulmonary consolidation. SL: [id number] 10/20/2018 [facility] contrast CT Exam: [facility] contrast CT Clinical Indication: - hypoxia, ESRD; Comparison: Chest radiograph from earlier same date TECHNIQUE: Sequential trans-axial images were obtained thru the chest and upper abdomen without the administration of intravenous contrast. Coronal and sagittal reconstructions were obtained. CT imaging performed at this location utilizes radiation dose optimization techniques which include one or more of the following: -Automated exposure control -Adjustment of the mA and/or kV accordin g to patient size -Use of iterative reconstruction techniq ue Dose: DLP = 331.61 mGy-cm FINDINGS: LUNG PARENCHYMA AND PLEURA: Mild subsegmental atelectasis in the left lower lobe and lingula. Minimal subsegmental atelectasis in the right lower lobe. No other focal consolidation or infiltrate. No suspicious lung nodule identified. No pleural effusion or pneumothorax. AIRWAY: The central airway is patent. MEDIASTINUM: No significant mediastinal lymphadenopathy. CARDIOVASCULAR STRUCTURES: Limited evaluation of the cardiovascular structures due to noncontrast technique. Heart size is enlarged. Coronary artery atherosclerotic calcifications noted. Aortic valve and mitral valve calcifications are present. Subdiaphragmatic pacemaker is in place. No significant pericardial effusion. The pulmonary arteries are unremarkable. There is atherosclerotic calcifications in the thoracic aorta without aneurysmal dilatation. Right IJ central venous catheter is in place with tip at the level of the cavoatrial junction. Left subclavian vascular stent is partially visualized. OSSEOUS STRUCTURES: No acute osseous abnormality identified. Status post median sternotomy. SOFT TISSUES: Cardiac loop recorder device is present in the left breast. Soft tissues are otherwise unremarkable. VISUALIZED UPPER ABDOMEN: Bilateral kidneys are partially visualized and appear atrophic. Status post cholecystectomy. IMPRESSION: 1. Minimal right and mild left subsegme ntal atelectasis without evidence of other acute abnormality in the chest. 2. Cardiomegaly with coronary atheroscl erotic disease. SL: [id number] 10/17/2018 [facility] Chest 1view DX EXAM: Chest 1vi ew DX DATE: 10/17/2018 5:01 PM CDT INDICATION: - Hypotension COMPARISON: None. IMPRESSION: Left axillary vascular stent is present. Right central line is present. Grossly normal cardiac silhouette and mediastinum. Atherosclerotic thoracic aorta. Low lung volume. Mild bibasilar atelectasis. No gross focal consolidation, significant pleural effusion or pneumothorax. SL: [id number] 10/17/2018 [facility] Abdomen/Pelvis wo IV contrast CT Clinical Indication: - RLQ abd pain Comparison: None TECHNIQUE: Helical imaging was performed without injection of IV contrast, from the diaphragm through the symphysis with multiplanar reformations obtained. CT imaging was performed with exposure control parameters to reduce radiation dose. DLP: 944.49 mGy-cm FINDINGS: Minimal subsegmental atelectasis versus scarring identified throughout the visualized portion of the left lung base. The visualized portion of the right lung base is grossly clear. Valvular calcifications identified at the aortic and mitral valves. No free intraperitoneal air. Given the noncontrasted technique, the liver, spleen, pancreas, and adrenal glands are unremarkable in appearance. Surgical clips are in place at the gallbladder fossa and the gallbladder is surgically absent. Extensive atrophic changes of the kidneys are present. Vascular calcifications are identified near the renal neena bilaterally. No hydronephrosis or hydroureter. The bladder is mildly distended with fluid without focal wall thickening. Calcifications of the parametrial vessels are present. The uterus and bilateral adnexal regions are otherwise unremarkable in appearance on this noncontrasted examination. No dilated loops of bowel. No evidence of bowel obstruction. Normal appendix. A pulse generator is in place over the left upper abdominal quadrant within the anterior abdominal wall soft tissues at this site. The abdominal aorta appears mildly tortuous without focal aneurysmal dilation. Severe atherosclerotic calcifications present at the abdominal aorta. The lumbosacral spine appears intact. Mild to moderate degenerative endplate changes present at the lumbar spine. IMPRESSION: 1. No acute inflammatory process identi fied within the abdomen or pelvis. No bowel obstruction. Normal appendix. 2. Extensive atrophic changes of the bi lateral kidneys, consistent with chronic renal disease. No hydronephrosis or hydroureter identified. 3. Extensive atherosclerotic calcificat ions present at the abdominal aorta. No abdominal aorta aneurysm. SL: [id number] 10/17/2018 [facility] Consultation Notes No Data Provided for This Section Discharge Summaries No Data Provided for This Section History and Physicals No Data Provided for This Section Vital Signs Vital Sign Value Date Comments Source Temperature Oral (F) 98.6 F 11/10/2018 [facility] Heart Rate 75 11/10/2018 [facility] Respitory Rate 14 11/10/2018 [facility] Systolic (mm Hg) 106 11/10/2018 [facility] Diastolic (mm Hg) 75 11/10/2018 [facility] Systolic (mm Hg) 131 11/10/2018 [facility] Diastolic (mm Hg) 82 11/10/2018 [facility] Heart Rate 82 11/10/2018 [facility] Respitory Rate 16 11/10/2018 [facility] Temperature Oral (F) 98.0 F 11/10/2018 [facility] Temperature Oral (F) 98.4 F 11/10/2018 [facility] Heart Rate 90 11/10/2018 [facility] Respitory Rate 17 11/10/2018 [facility] Systolic (mm Hg) 164 11/10/2018 [facility] Diastolic (mm Hg) 73 11/10/2018 [facility] Height 167.64 cm 11/09/2018 [facility] BMI Calculated 29.11 11/09/2018 [facility] Weight 81.818 11/09/2018 [facility] Height 167.64 cm 11/08/2018 [facility] Weight 81.818 11/08/2018 [facility] BMI Calculated 29.11 11/08/2018 [facility] Height 167.64 cm 11/08/2018 [facility] BMI Calculated 29.11 11/08/2018 [facility] Weight 81.818 11/08/2018 [facility] Temperature Oral (F) 98.5 F 10/26/2018 [facility] Heart Rate 63 10/26/2018 [facility] Respitory Rate 16 10/26/2018 [facility] Systolic (mm Hg) 127 10/26/2018 [facility] Diastolic (mm Hg) 79 10/26/2018 [facility] Temperature Oral (F) 98.6 F 10/26/2018 [facility] Heart Rate 71 10/26/2018 [facility] Respitory Rate 16 10/26/2018 [facility] Systolic (mm Hg) 106 10/26/2018 [facility] Diastolic (mm Hg) 71 10/26/2018 [facility] Temperature Oral (F) 98.1 F 10/26/2018 [facility] Respitory Rate 19 10/26/2018 [facility] Systolic (mm Hg) 120 10/26/2018 [facility] Diastolic (mm Hg) 48 10/26/2018 [facility] Height 165.1 cm 10/26/2018 [facility] Heart Rate 73 10/26/2018 [facility] Height 165.1 cm 10/18/2018 [facility] Weight 84 0 10/18/2018 [facility] BMI Calculated 30.82 10/18/2018 [facility] Height 157.48 cm 10/17/2018 [facility] BMI Calculated 36.66 10/17/2018 [facility] Weight 90.909 10/17/2018 [facility] Encounters Location Location Details Encounter Type Encounter Number Reason For Visit Attending Provider ADM Date DC Date Status Source [facility] Inpatient [id number] [facility] Observation [id number] [facility] Aydenouris 11/08/2018 11/10/2018 [facility] Procedures Procedure Code Date Perfomer Comments Source Cardiac pacemaker procedure 23 [id number] [facility] Cholecystectomy [id number] [facility] st Assessment and Plan Assessment and Plan Date Source Extracted from:Title: Clinical Document Author: jAit Casanova MD Date: 11/09/18 Nephrology Consult Ajit Casanova M.D. Date HISTORY OF PRESENT ILLNNESS PAST MEDICAL HISTORY This is a 68-year-old female with end-stage renal disease on hemodialysis Adwnqa-Zvkrhfyne-Gqxzyp, admitted with tongue swelling and dysathria PAST MEDICAL HISTORY: 1. ESRD. 2. Hypertension. 3. Type 2 diabetes mellitus. PAST SURGICAL HISTORY: AV fistula placement. FAMILY HISTORY: Noncontributory. SOCIAL HISTORY: No smoking. No alcohol, no drugs. REVIEW OF SYMPTOMS General no change in weight no change in appetite ENT no wheezing no congestion no coughing Vision no changes in vision no eye redness Pulmonary no shortness of breath no coughing no wheezing Cardiac no chest pain no arrhythmia no orthopnea no dyspnea upon exertion GI no nausea no vomiting no constipation no diarrhea no blood in the stool no dysuria no hematuria Neurological no sensory loss no motor loss no weakness Skin no rash no bruises Psych no depression and schizoaffective disorder no anxiety Physical Exam alert, oriented HEENT : peerla NECK: no jvd, no bruits, HEART :I RIR no s3 no S4, no murmur, no rub LUNGS: no wheezes no rales, no rhonci ABDOMEN: NTND no organomegaly no hepatomegaly positive bowel sounds EXT: no clubbing no cyanosis no edema NEURO:no focalities, no sensory defecits, no motor defecits SKIN: no rash, no bruises Vitals Tmp(F) Pulse BP RR SpO2 FIO2 11/09 21:10 98.0 77 100/65 - - --- --- 11/09 21:00 ---- 78 85/56 -- --- --- 11/09 20:45 ---- 76 104/83 - - --- --- 11/09 20:30 ---- 75 104/83 - - --- --- 11/09 20:15 ---- 75 124/111 -- --- --- 24 Hr Tmax: 98.1F (36.72c) at 11/09 14:5 1 Vital Signs are the last 5 in the past 48 hours. Medication List Active Medications Ordered sodium chloride: 10 ml, IVP, Q12H. sodium chloride: 10 ml, IVP, PRN, PRN: Line Flush. thiamine: 100 mg, 1 tab, PO, Daily. Documented acetaminophen-codeine: 1 tab, PO, Q6H, 0 Refill(s). ALPRAZOLam: 0.25 mg, 1 tab, PO, Q6H, PRN: anxiety, 0 Refill(s). lactulose: 20 gm, 30 mL, PO, Daily, for 8 day, PRN: constipation, 240 mL, 0 Refill(s). metoclopramide: 5 mg, 1 tab, PO, QID, for 7 day, 28 tab, 0 Refill(s). midodrine: 10 mg, 1 tab, PO, TID, hold SBP >120, 0 Refill(s). mirtazapine: 15 mg, 1 tab, PO, Bedtime, 0 Refill(s). ondansetron: 4 mg, 1 tab, PO, Q4H, under the tounge, PRN: Vomiting, 0 Refill(s). polyethylene glycol 3350: 17 gm, PO, Daily, 0 Refill(s). rOPINIRole: 0.5 mg, 1 tab, PO, Bedtime, 0 Refill(s). senna: 0 Refill(s). sevelamer: 1,600 mg, 2 tab, PO, TID-Meals, for 30 day, 180 tab, 0 Refill(s). sodium polystyrene sulfonate: 7.5 gm, 30 mL, Daily, on WEDNESDAY, WEDNESDAY, WEDNESDAY, 0 Refill(s). tramadol: 50 mg, 1 tab, PO, Q6H, PRN: Pain Score 4-6, 0 Refill(s). tramadol: 50 mg, 1 tab, PO, Q6H, for 10 day, PRN: Pain, 40 tab, 0 Refill(s). warfarin: 2 mg, 1 tab, PO, Bedtime, 0 Refill(s). Medications Inactivated in the Last 72 Hours aspirin: 325 mg, 1 tab, PO, ONCE. aspirin: 325 mg, 1 tab, PYXIS, ONCE. mannitol: 12.5 gm, 50 mL, PYXIS, ONCE. midodrine: 10 mg, 2 tab, PO, TID, 90 tab, 0 Refill(s). Labs (Last four charted values) WBC 8.0 (NOV 08) Hgb 12.0 (NOV 08) Hct L 34.7 (NOV 08) Plt 207 (NOV 08) Na L 132 (NOV 08) K 5.1 (NOV 08) CO2 29 (NOV 08) Cl 97 (NOV 08) Cr H 5.18 (NOV 08) BUN H 35 (NOV 08) Glucose Random H 111 (NOV 08) Mg H 2.7 (NOV 08) Ca 9.6 (NOV 08) PT H 16.0 (NOV 08) INR H 1.31 (NOV 08) PTT 33.6 (NOV 08) Troponin <0.02 (NOV 08) Total CK 86 (NOV 08) ASSESSMENT AND PLAN 1- ESRD HEMODIALYSIS PROCEDURE: seen on hemodialysis, see orders, tolerating current prescription. 2- anemia of chronic disease hg 12 3- dysarthria , tongue swelling better 4- discharge post dialysis Extracted from:Title: Clinical Document Author: Helene Hernandez MD Date: 11/09/18 Discharge Summary Gianni Rossann Helene Hernandez MD Discharge Diagnosis: 1. Dysarthria 2. End-stage renal disease on dialysis. 3. Orthostatic hypotension. 4. A-fib. Brief Hospital Course: The patient is a 68-year-old female who is a history of end-stage renal disease on hemodialysis who presented from the [facility] with possible dysarthria. The patient was seen and evaluated by neurology who feels that the patient was at her baseline and requires no further neurologic intervention. The patient is scheduled for hemodialysis this evening. We will arrange transport to the [facility] once feasible. Vitals Tmp(F) Pulse BP RR SpO2 FIO2 11/09 14:51 98.1 77 139/54 1 6 98 --- 11/09 11:53 98.1 77 144/66 1 6 97 --- 11/09 07:39 98.1 86 135/69 1 6 93 --- 11/09 03:05 98 79 139/89 16 97 --- 11/09 00:04 98.1 71 140/64 1 5 97 --- 24 Hr Tmax: 98.6F (37.00c) at 11/08 17:1 7 Vital Signs are the last 5 in the past 48 hours. Discharge home See Med reconciliation form F/U with PCP in 2 weeks, medical specialists as necessary Diet: cont same diet Activity as jose Labs (Last four charted values) WBC 8.0 (NOV 08) Hgb 12.0 (NOV 08) Hct L 34.7 (NOV 08) Plt 207 (NOV 08) Na L 132 (NOV 08) K 5.1 (NOV 08) CO2 29 (NOV 08) Cl 97 (NOV 08) Cr H 5.18 (NOV 08) BUN H 35 (NOV 08) Glucose Random H 111 (NOV 08) Mg H 2.7 (NOV 08) Ca 9.6 (NOV 08) PT H 16.0 (NOV 08) INR H 1.31 (NOV 08) PTT 33.6 (SEP ) Troponin <0.02 (NOV 08) Total CK 86 (NOV 08) Medications (3) Active Scheduled: (2) sodium chloride 0.9% 10 ml flush syr BD 10 ml, IVP, Q12H thiamine 100 mg TAB 100 mg 1 tab, PO, Daily Continuous: (0) PRN: (1) sodium chloride 0.9% 10 ml flush syr BD 10 ml, IVP, PRN Medications (4) Active Scheduled Meds (2): 11/08/18 sodium chloride (Saline Flush 0 .9%) 10 ml IVP Q12H 11/09/18 thiamine 100 mg PO Daily Unscheduled Meds: None PRN Meds (1): 11/08/18 sodium chloride (Saline Flush 0 .9%) 10 ml IVP PRN One Time Meds (1): 11/08/18 (Completed) aspirin 325 mg PO ONCE Continuous Infusions: None Extracted from:Title: History and Physical Author: Ric Morales MD Date: 11/08/18 68 y o female patient admitted for manag ement of possible TIA. 1.Dysarthria(R47.1) She does have episode of possible dysarthria however this is not overtly concerning. She does not have any other focal deficits. We will observe on telemetry and neurochecks overnight. Neurologist to evaluate. Ordered: Admit/Condition, 11/08/18 16:34:00 CDT, Status: Out Patient with Observation Services, Telemetry Capable Location, Expected LOS: 1 Midnight, Ric Morales MD, Admit MD Review/Approve Yes, Isolation: No Isolation/Standard Precautions, Dysarthria 2.ESRD on dialysis(N18.6) We will continue hemodialysis as scheduled. We will consult bead flipper for furthermanagement recommendation. 3.Hypertension(I10) We will monitor her blood pressure per unit protocol and continue with hypertensive medications. Warfarinfor DVT. Time taken for H&P is 50 min. Expected to spend at least 1 midnight. Time taken for H&P is greater than 45 minutes. 11/10/2018 Tj Extracted from:Title: Cardiology Progres s Note * Author: Amrit Posey MD Date: 10/26/18 Impression and Plan 1. Chronic hypotension 2. ESRD on HD 3. PPM 4. HTN 5. Paroxysmal Afib Recs: - continue current CV meds - midodrine for hypotension - warfarin for INR 2-3 - PPM interrogation showed normal device function Extracted from:Title: Clinical Document Author: Helene Hernandez MD Date: 10/26/18 Discharge Summary Gianni Rossann Helene Hernandez MD Discharge Diagnosis: *Hypertensive urgency *Labile blood pressure *Idiopathic hypotension *End-stage renal disease *CAD * PAF *Dyspnea with exertion *Volume overloaded state Brief Hospital Course: 68-year-old female with past me dical history significant for atrial fibrillation on Coumadin, chronic hypotension on midodrine, ESRD on HD through AV fistula, diabetes who was brought to the ED following episode of presyncope and bleeding during dialysis when needle was removed inadvertently from her AV graft. Pulmonary was consulted for dyspnea with episodes of hypertension and hypotension. Patient was noted to have hypoxemia on a ABG that was done during the episode for which an [employer] was called. She required oxygen at that time and O2 sat was 87% per report. Her UTI was found to be contaminant. Her INr is now therapeutic. She can dc home today Vitals Tmp(F) Pulse BP RR SpO2 FIO2 10/26 15:22 98.5 63 127/79 1 6 96 --- 10/26 11:23 98.6 71 106/71 1 6 96 --- 10/26 11:10 98.1 73 120/48 1 9 --- --- 10/26 11:00 ---- 63 112/46 2 0 --- --- 10/26 10:45 ---- 64 112/46 2 1 --- --- 24 Hr Tmax: 99.4F (37.44c) at 10/26 00:4 2 Vital Signs are the last 5 in the past 48 hours. Notify your physician if: Pain Follow Up When: 2 Weeks Reason for Follow Up: Follow Up on Treatment Diet: Renal Diet Activity: No restrictions Labs (Last four charted values) WBC L 3.1 (OCT 26) 4.8 (OCT 25) 5.5 (OCT 24) 5.6 (OCT 23) Hgb L 10.8 (OCT 26) 12.0 (OCT 25) L 11.0 (OCT 24) L 10.8 (OCT 23) Hct L 31.2 (OCT 26) L 34.8 (OCT 25) L 31.5 (OCT 24) L 31.5 (OCT 23) Plt 169 (OCT 26) 172 (OCT 25) 161 (OCT 24) 157 (OCT 23) Na 137 (OCT 26) 137 (OCT 25) 138 (OCT 24) 135 (OCT 23) K 3.9 (OCT 26) 4.1 (OCT 25) 4.5 (OCT 24) 4.6 (OCT 23) CO2 26 (OCT 26) 27 (OCT 25) L 23 (OCT 24) 26 (OCT 23) Cl 101 (OCT 26) 99 (OCT 25) 101 (OCT 24) 99 (OCT 23) Cr H 4.37 (OCT 26) H 4.66 (OCT 25) H 7.46 (OCT 24) H 5.87 (OCT 23) BUN H 34 (OCT 26) H 32 (OCT 25) H 59 (OCT 24) H 50 (OCT 23) Glucose Random 97 (OCT 26) H 109 (OCT 25) H 103 (OCT 24) H 131 (OCT 23) Mg 2.3 (OCT 20) Ca L 8.4 (OCT 26) 8.9 (OCT 25) 8.7 (OCT 24) 8.9 (OCT 23) PT H 25.3 (OCT 26) H 20.2 (OCT 25) H 17.5 (OCT 24) H 16.9 (OCT 24) INR H 2.36 (OCT 26) H 1.77 (OCT 25) H 1.47 (OCT 24) H 1.40 (OCT 24) PTT H 55.7 (OCT 17) Troponin <0.02 (OCT 21) <0.02 (OCT 20) <0.02 (OCT 17) Medications (12) Active Scheduled: (4) cefTRIAXone 1 gm INJ VL + water for INJection, sterile 10 mL 1 gm, IVP, [id number] heparin 5000 unit/1 ml INJ VL 5,000 unit 1 mL, SUB-Q, BID midodrine 5 mg TAB 10 mg 2 tab, PO, TID warfarin 1 mg TAB 3 mg 3 tab, PO, Q5PM Continuous: (0) PRN: (8) acetaminophen 325 mg TABLET 650 mg 2 tab, PO, Q6H acetaminophen-hydrocodone 325 mg-5 mg tab 1 tab, PO, Q4H Dextrose 50% 50 ml INJ syringe 12.5 gm 25 mL, IVP, PRN Dextrose 50% 50 ml INJ syringe 25 gm 50 mL, IVP, PRN glucagon recombinant 1 mg PDR 1 mg, IM, PRN hydrALAZINE 20 mg/1 ml VL 10 mg 0.5 mL, IVP, Q4H nitroglycerin 0.4 mg TAB 25's btl 0.4 mg 1 tab, SL, Q5Min ondansetron 4 mg/2ml INJ VL 4 mg 2 mL, IVP, Q4H Medications (12) Active Scheduled Meds (4): 10/24/18 cefTRIAXone + sterile water 10 mL (Rocephin + sterile water 10 mL) 1 gm IVP [id number] 120 ml/hr 10/25/18 heparin 5,000 unit SUB-Q BID 10/20/18 midodrine 10 mg PO TID 10/26/18 warfarin 3 mg PO Q5PM Unscheduled Meds: None PRN Meds (8): 10/18/18 Dextrose 50% in Water IV (Dextr ose 50% Syringe) 12.5 gm IVP PRN 10/18/18 Dextrose 50% in Water IV (Dextr ose 50% Syringe) 25 gm IVP PRN 10/18/18 acetaminophen-hydrocodone (Norc o 5/325 oral tablet) 1 tab PO Q4H 10/18/18 acetaminophen 650 mg PO Q6H 10/18/18 glucagon 1 mg IM PRN 10/18/18 hydrALAZINE 10 mg IVP Q4H 10/20/18 nitroglycerin 0.4 mg SL Q5Min 10/18/18 ondansetron 4 mg IVP Q4H One Time Meds: None Continuous Infusions: None Extracted from:Title: Pulmonary consult note Author: Pedro Hendrix MD Date: 10/22/18 Pulmonary and Critical Care Consult Note Pedro Hendrix MD Reason for consult: Dyspnea HPI: Patient is a 68-year-old female with past medical history significant for atrial fibrillation on Coumadin, chronic hypotension on midodrine, ESRD on HD through AV fistula, diabetes who was brought to the ED following episode of presyncope and bleeding during dialysis when needle was removed inadvertently from her AV graft. Pulmonary is consulted for dyspnea with episodes of hypertension and hypotension. Patient was noted to have hypoxemia on a ABG that was done during the episode for which an [employer] was called. She required oxygen at that time and O2 sat was 87% per report. On my evaluation at bedside today the patient is doing well and denies wrist or complaints at this time. Reports compliance of medication at home. Denies history of lung disease. No history of smoking. No history of asthma. Does not use inhalers at home. No history of auscultation for pneumonia or other pulmonary disease. Dyspnea has improved. 14 point review of systems negative status per HPI Review of systems: Allergies Allergies (1) Active Reaction No Known Medication Allergies None documented Procedure History Cardiac pacemaker procedure Past Medical History No qualifying data available Family History No qualifying data available Social history Employment/School Details: Status: Retired. Alcohol Details: Never Tobacco Details: Use: Never smoker. 0 per day. Previous treatment: None. Tobacco smoke exposure: None. Did the Patient Smoke Cigarettes Anytime During the Last 365 Days? No. Cessation Counseling Provided? No. Substance Abuse Details: Use: None. Home Meds No qualifying data available Scheduled Meds (2): 10/20/18 midodrine 10 mg PO TID 10/20/18 warfarin 2 mg PO Q5PM Continuous Infusions: None Labs (Last four charted values) WBC 5.2 (OCT 20) 6.0 (OCT 19) 6.3 (OCT 17) Hgb L 11.4 (OCT 20) L 11.5 (OCT 19) 12.3 (OCT 17) Hct L 33.5 (OCT 20) L 34.0 (OCT 19) 36.2 (OCT 17) Plt 164 (OCT 20) 163 (OCT 19) 194 (OCT 17) Na 136 (OCT 20) 139 (OCT 19) 138 (OCT 17) K 4.4 (OCT 20) 4.8 (OCT 19) 4.5 (OCT 17) CO2 31 (OCT 20) 30 (OCT 19) 30 (OCT 17) Cl 99 (OCT 20) 99 (OCT 19) 98 (OCT 17) Cr H 4.62 (OCT 20) H 6.78 (OCT 19) H 4.27 (OCT 17) BUN 18 (OCT 20) H 39 (OCT 19) 15 (OCT 17) Glucose Random 91 (OCT 20) 92 (OCT 19) H 133 (OCT 17) Mg 2.3 (OCT 20) Ca L 8.0 (OCT 20) L 8.0 (OCT 20) L 8.1 (OCT 19) 9.5 (OCT 17) PT H 19.8 (OCT 22) H 17.5 (OCT 21) H 19.5 (OCT 20) H 31.4 (OCT 19) INR H 1.72 (OCT 22) H 1.47 (OCT 21) H 1.69 (OCT 20) H 3.12 (OCT 19) PTT H 55.7 (OCT 17) Troponin <0.02 (OCT 21) <0.02 (OCT 20) <0.02 (OCT 17) All imaging reviewed. Objective: I&O Record In Out Bal 10/21 24hr Tot 260 1999 - 10/20 24hr Tot 2 0 2 Lines, Tubes, and Drains: 10/17/2018 16:57 Peripheral Lines: Antec ubital Left 20 gauge Over the needle catheter 10/22/2018 07:58 SpO2 percent 94 10/21/2018 20:00 O2 Sat Location Right hand/finger Vital Signs (last 24 hrs) Last Charted Temp Oral 97.5 DegF (OCT 22 07:58) Heart Rate Peripheral 77 bpm (OCT 22 07:58) Resp Rate 18 BRMIN (OCT 22 07:58) SBP 104 mmHg (OCT 22 07:58) DBP 63 mmHg (OCT 22 07:58) Exam: General: not in any distress, resting comfortably HEENT: no pallor, anicteric sclera Cardiovascular: regular, no murmur Respiratory: CTA, no rhonchi rales or wheezes Abdomen: soft, non-tender, +BS Extremities: no edema, no cyanosis Neurologic: Awake, Nonfocal Skin: no breakdown Problems: Dyspnea Hypertensive urgency Paroxysmal atrial fibrillation Status post pacemaker Labile blood pressures End-stage renal disease CAD Volume overload Suspected ETHAN Plan: Patient currently saturating well on room air, supplemental oxygen only as needed to maintain O2 saturation greater than 89%. Chest CT reviewed, only mild basilar atelectasis. The patient required oxygen initially following acute episode however has not required it since. Volume optimization with HD as per nephrology Labile blood pressures with episodes of both hypotension and hypertension, on midodrine for episodes of hypotension as a chronic medication, may benefit from centrally acting medication such as clonidine, defer to cardiology Paroxysmal atrial fibrillation, following with cardiology as outpatient, remains on Coumadin, INR goal 23 Suspected ETHAN, patient with symptoms of sleep apnea, no prior polysomnogram and will plan for outpatient follow-up and sleep study at that time. I spent greater than 30 minutes in reviewing the clinical case, examining the patient, and discussing with the patient/patient's family, and with other consultants, the clinical course, treatment plan, and prognosis. Pedro Hendrix MD Pulmonary and Critical Care Extracted from:Title: Clinical Document Author: Wayne Torrez MD Date: 10/18/18 full H&P dictated, #[id number] date: 10/17/2018 23:55 10/27/2018 Tj Plan of Care No Data Provided for This Section Social History Social History Date Source Social History TypeResponse Alcohol Never Employment/School Status: Retired. Substance Abuse Use: None. Smoking Status Never smoker; Previous treatment: None; Exposure to Tobacco Smoke None; Cigarette Smoking Last 365 Days No; Reg Smoking Cessation Counseling No; Tobacco use per day: 0; entered on: 11/08/18 10/18/2018 Tj Family History No Data Provided for This Section Advance Directives No Data Provided for This Section Functional Status No Data Provided for This Section
--- OUTSIDE RECORDS SUMMARY | 2019-06-28 16:20 | XMS REPORT | Summary of Care ---
Author Author [facility] Organization [facility] Address Unknown Phone Unavailable Encounter [facility] [place](FIN) [phone] Date(s): 10/17/18 - 10/26/18 [facility] [address] [place] [address]- Encounter Diagnosis Hypoxemia (Final) - Discharge Disposition: Home or Self Care Attending Physician: Helene Hernandez MD Admitting Physician: Helene Hernandez MD Vital Signs 1 2 3 Most recent to oldest [Reference Range]: 165.1 cm (10/26/18 9:00 AM) 165.1 cm (10/18/18 1:41 AM) 157.48 cm (10/17/18 4:34 PM) Height 84 kg (10/26/18 9:00 AM) Current Weight 98.5 DegF (10/26/18 3:22 PM) 98.6 DegF (10/26/18 11:23 AM) 98.1 DegF (10/26/18 11:10 AM) Temperature Oral [96.4-99.1 DegF] 127/79 mmHg (10/26/18 3:22 PM) 106/71 mmHg (10/26/18 11:23 AM) 120/48 mmHg (10/26/18 11:10 AM) Blood Pressure [90-140/60-90 mmHg] 16 BRMIN (10/26/18 3:22 PM) 16 BRMIN (10/26/18 11:23 AM) 19 BRMIN (10/26/18 11:10 AM) Respiratory Rate [14-20 BRMIN] 63 bpm (10/26/18 3:22 PM) 71 bpm (10/26/18 11:23 AM) 73 bpm (10/26/18 5:04 AM) Peripheral Pulse Rate [60-100 bpm] 84 kg (10/18/18 1:41 AM) 90.909 kg (10/17/18 4:34 PM) Weight 30.82 m2 (10/18/18 1:41 AM) 36.66 m2 (10/17/18 4:34 PM) Body Mass Index Problem List No data available for this section Allergies, Adverse Reactions, Alerts No Known Medication Allergies Medications acetaminophen 650 mg, 2 tab, Route: PO, Drug form: TAB, Q6H, Dosing Weight 84, kg, PRN Pain Sc ore 1-3, Start date: 10/18/18 8:59:00 CDT, Duration: 30 day, Stop date: 11/17/18 8:58:00 CDT, 0 Notes: Do not exceed 4 gm/day. (Same as: Tylenol) Start Date: 10/18/18 Stop Date: 10/26/18 Status: Discontinued acetaminophen-codeine #3 1 tab, PO, Q6H, 0 Refill(s) Start Date: 10/18/18 Status: Ordered ALPRAZOLam 0.25 mg oral tablet 0.25 mg = 1 tab, PO, Q6H, PRN anxiety, 0 Refill(s) Start Date: 10/18/18 Status: Ordered aspirin 325 mg, 1 tab, Route: PO, Drug form: ECTAB, ONCE, Dosing Weight 84, kg, Start da te: 10/20/18 17:54:00 CDT, Stop date: 10/20/18 17:54:00 CDT, 0 Notes: (Do Not Crush) Do not crush or chew. Start Date: 10/20/18 Stop Date: 10/20/18 Status: Completed cephalexin 500 mg oral capsule 500 mg = 1 cap, PO, BID, 0 Refill(s) Start Date: 10/18/18 Stop Date: 10/26/18 Status: Discontinued Coumadin 4 mg, 2 tab, Route: PO, Drug form: TAB, Q5PM, Start date: 10/23/18 17:00:00 CDT, Duration: 30 day, Stop date: 11/21/18 17:00:00 CDT, 0 Notes: Nurse to ensure documentation of patient education per anticoagulation po licy.Avoid large intake of vitamin-K containing foods diet.(Same As: Coumadin)WA MICHELLE: F/P - P Waste Black; E - P Waste Black Start Date: 10/23/18 Stop Date: 10/24/18 Status: Discontinued Dextrose 50% Syringe 12.5 gm, 25 mL, Route: IVP, Drug Form: INJ, Dosing Weight 84, kg, PRN, PRN Blood Glucose Results, Start date: 10/18/18 2:42:00 CDT, Duration: 30 day, Stop date: 11/17/18 2:41:00 CDT, 0 Start Date: 10/18/18 Stop Date: 10/26/18 Status: Discontinued Dextrose 50% Syringe 25 gm, 50 mL, Route: IVP, Drug Form: INJ, Dosing Weight 84, kg, PRN, PRN Blood G lucose Results, Start date: 10/18/18 2:42:00 CDT, Duration: 30 day, Stop date: 0 11/17/18 2:41:00 CDT, 0 Start Date: 10/18/18 Stop Date: 10/26/18 Status: Discontinued glucagon 1 mg, Route: IM, Drug form: PDR/INJ, PRN, Dosing Weight 84, kg, PRN Blood Glucos e Results, Start date: 10/18/18 2:42:00 CDT, Duration: 30 day, Stop date: 2:41:00 CDT, 0 Start Date: 10/18/18 Stop Date: 10/26/18 Status: Discontinued heparin 5,000 unit, 1 mL, Route: SUB-Q, Drug form: INJ, BID, Dosing Weight 84, kg, Start date: 10/25/18 21:00:00 CDT, Duration: 30 day, Stop date: 11/24/18 9:00:00 CDT, 0 Notes: porcine heparin Start Date: 10/25/18 Stop Date: 10/26/18 Status: Discontinued hydrALAZINE 10 mg, 0.5 mL, Route: IVP, Drug form: INJ, Q4H, Dosing Weight 84, kg, PRN Hypert ension, Start date: 10/18/18 2:42:00 CDT, Duration: 30 day, Stop date: 11/17/18 2:41:00 CDT, 0 Notes: (Same as: Apresoline)Push over 5 minutes Start Date: 10/18/18 Stop Date: 10/26/18 Status: Discontinued midodrine 5 mg, 1 tab, Route: PO, Drug form: TAB, TID, Dosing Weight 84, kg, Priority: NOW , Start date: 10/18/18 12:13:00 CDT, Duration: 30 day, Stop date: 11/17/18 9:00: 00 CDT, 0 Notes: (Same as:Proamatine) Start Date: 10/18/18 Stop Date: 10/20/18 Status: Discontinued midodrine 10 mg, 2 tab, Route: PO, Drug form: TAB, TID, Dosing Weight 84, kg, Start date: 10/20/18 13:00:00 CDT, Duration: 30 day, Stop date: 11/19/18 9:00:00 CDT, 0 Notes: (Same as:Proamatine) Start Date: 10/20/18 Stop Date: 10/26/18 Status: Discontinued midodrine 5 mg, 1 tab, Route: PO, Drug form: TAB, ONCE, Dosing Weight 84, kg, Priority: NO W, Start date: 10/20/18 8:11:00 CDT, Stop date: 10/20/18 8:11:00 CDT, 0 Notes: (Same as:Proamatine) Start Date: 10/20/18 Stop Date: 10/20/18 Status: Completed midodrine 10 mg oral tablet 10 mg = 1 tab, PO, TID, hold SBP >120, 0 Refill(s) Start Date: 10/18/18 Status: Ordered midodrine 5 mg oral tablet 10 mg = 2 tab, PO, TID, # 90 tab, 0 Refill(s) Start Date: 10/26/18 Status: Ordered mirtazapine 15 mg oral tablet 15 mg = 1 tab, PO, Bedtime, 0 Refill(s) Start Date: 10/18/18 Status: Ordered morphine 0.5 mg/mL preservative-free injectable solution 2 mg, 1 mL, Route: IVP, Drug form: INJ, ONCE, Dosing Weight 84, kg, Start date: 10/20/18 17:59:00 CDT, Stop date: 10/20/18 17:59:00 CDT, 0 Notes: (Same as:MORPhine Sulfate) Start Date: 10/20/18 Stop Date: 10/20/18 Status: Completed nitroglycerin 0.4 mg, 1 tab, Route: SL, Drug form: TAB, Q5Min, Dosing Weight 84, kg, PRN Chest Pain, Start date: 10/20/18 17:44:00 CDT, Duration: 30 day, Stop date: 11/19/18 17:43:00 CDT, 0 Notes: (Same as:Nitroquick, Nitrostat)"Do Not Crush" Sublingual tablet Start Date: 10/20/18 Stop Date: 10/26/18 Status: Discontinued [place] 5/325 oral tablet 1 tab, Route: PO, Drug Form: TAB, Dosing Weight 84, kg, Q4H, PRN Pain Score 1-3, Start date: 10/18/18 2:42:00 CDT, Duration: 30 day, Stop date: 11/17/18 2:41:00 CDT, 0 Notes: (Same as: [place] 325/5) Do not exceed 4gm/day of acetaminophen. Start Date: 10/18/18 Stop Date: 10/26/18 Status: Discontinued ondansetron 4 mg, 2 mL, Route: IVP, Drug form: INJ, Q4H, Dosing Weight 84, kg, PRN Nausea & Vomiting, Start date: 10/18/18 2:42:00 CDT, Duration: 30 day, Stop date: 2:41:00 CDT, 0 Notes: (Same as: Zofran) MEDICATION WASTE Product Size: 4 mgProduct Was kim: ___ mg Start Date: 10/18/18 Stop Date: 10/26/18 Status: Discontinued ondansetron 4 mg oral tablet 4 mg = 1 tab, PO, Q4H, PRN Vomiting, under the tounge, 0 Refill(s) Start Date: 10/18/18 Status: Ordered Rocephin + sterile water 10 mL 1 gm, Route: IVP, [id number], Dosing Weight 84, kg, Start date: 10/24/18 15:00:00 C DT, Duration: 7 day, Stop date: 10/30/18 15:00:00 CDT, ABX Indication: Urinary T ract Infection, 0 Notes: (Same As: Rocephin).Use with 100 mL NS and infuse over 30 min MEDICA TION WASTE Product Size: 1000 mgProduct Wasted: ___ mg Start Date: 10/24/18 Stop Date: 10/26/18 Status: Discontinued rOPINIRole 0.5 mg oral tablet 0.5 mg = 1 tab, PO, Bedtime, 0 Refill(s) Start Date: 10/18/18 Status: Ordered senna 0 Refill(s) Start Date: 10/18/18 Status: Ordered tramadol 50 mg oral tablet 50 mg = 1 tab, PO, Q6H, PRN Pain Score 4-6, 0 Refill(s) Start Date: 10/18/18 Status: Ordered Tylenol with Codeine #3 oral tablet 1 tab, Route: PO, Drug Form: TAB, Dosing Weight 90.909, kg, ONCE, STAT, Start da te: 10/17/18 20:31:00 CDT, Stop date: 10/17/18 20:31:00 CDT Start Date: 10/17/18 Stop Date: 10/17/18 Status: Completed warfarin 3 mg, 3 tab, Route: PO, Drug form: TAB, Q5PM, Dosing Weight 84, kg, Start date: 10/26/18 17:00:00 CDT, Duration: 1 doses or times, Stop date: 10/26/18 17:00:00 CDT, 0 Notes: Nurse to ensure documentation of patient education per anticoagulation po licy.Avoid large intake of vitamin-K containing foods diet.(Same As: Coumadin)COU[place] MICHELLE: F/P - P Waste Black; E - P Waste Black Start Date: 10/26/18 Stop Date: 10/26/18 Status: Completed warfarin 3 mg, 3 tab, Route: PO, Drug form: TAB, Q5PM, Dosing Weight 84, kg, Start date: 10/20/18 21:00:00 CDT, Stop date: 11/18/18 17:00:00 CDT, 0 Notes: Nurse to ensure documentation of patient education per anticoagulation po licy.Avoid large intake of vitamin-K containing foods diet.(Same As: Coumadin)[place] MICHELLE: F/P - P Waste Black; E - P Waste Black Start Date: 10/20/18 Stop Date: 10/23/18 Status: Discontinued warfarin 6 mg, 3 tab, Route: PO, Drug form: TAB, Q5PM, Dosing Weight 84, kg, Start date: 10/24/18 17:00:00 CDT, Duration: 30 day, Stop date: 11/22/18 17:00:00 CDT, 0 Notes: Nurse to ensure documentation of patient education per anticoagulation po licy.Avoid large intake of vitamin-K containing foods diet.(Same As: Coumadin)WA MICHELLE: F/P - P Waste Black; E - P Waste Black Start Date: 10/24/18 Stop Date: 10/26/18 Status: Discontinued warfarin 2 mg oral tablet 2 mg = 1 tab, PO, Bedtime, 0 Refill(s) Start Date: 10/18/18 Status: Ordered Results 1 2 3 Most recent to oldest [Reference Range]: 1.3 K/CMM *LOW* (10/26/18 7:20 AM) 2.8 K/CMM (10/25/18 5:10 AM) 2.8 K/CMM (10/24/18 4:58 AM) Neutrophils # [1.5-8.1 K/CMM] 1.4 K/CMM (10/26/18 7:20 AM) 1.2 K/CMM (10/25/18 5:10 AM) 1.8 K/CMM (10/24/18 4:58 AM) Lymphocytes # [1.0-5.5 K/CMM] 0.3 K/CMM (10/26/18 7:20 AM) 0.6 K/CMM (10/25/18 5:10 AM) 0.5 K/CMM (10/24/18 4:58 AM) Monocytes # [0.0-0.8 K/CMM] 0.1 K/CMM (10/26/18 7:20 AM) 0.1 K/CMM (10/25/18 5:10 AM) 0.3 K/CMM (10/24/18 4:58 AM) Eosinophils # [0.0-0.5 K/CMM] 0.1 K/CMM (10/24/18 4:58 AM) 0.1 K/CMM (10/23/18 5:16 AM) 0.1 K/CMM (10/19/18 5:09 AM) Basophils # [0.0-0.2 K/CMM] 41 /LPF *HI* (10/23/18 6:55 PM) UA Trans Epi [<=0 /LPF] Normal (10/23/18 5:16 AM) Normal (10/19/18 5:09 AM) Plt Morph [Normal] >0.7 mg/dL (10/17/18 6:16 PM) Bili Indirect [0.0-1.0 mg/dL] 10 mL/min/1.73m2 1 *NA* (10/26/18 7:20 AM) 9 mL/min/1.73m2 2 *NA* (10/25/18 5:10 AM) 5 mL/min/1.73m2 3 *NA* (10/24/18 4:58 AM) eGFR O NEG *Unknown* (10/17/18 6:16 PM) ABO/Rh 0.7 (10/17/18 6:16 PM) A/G Ratio [0.7-1.6] Negative (10/17/18 6:16 PM) Antibody Scrn 3.2 g/dL *LOW* (10/17/18 6:16 PM) Albumin Lvl [3.5-5.0 g/dL] 59 unit/L (10/17/18 6:16 PM) Alk Phos [39-136 unit/L] 20 unit/L (10/17/18 6:16 PM) ALT [0-65 unit/L] 13.9 mEq/L (10/26/18 7:20 AM) 15.1 mEq/L (10/25/18 5:10 AM) 18.5 mEq/L (10/24/18 4:58 AM) AGAP [10.0-20.0 mEq/L] 22 unit/L (10/17/18 6:16 PM) AST [0-37 unit/L] 1.3 % *HI* (10/26/18 7:20 AM) 0.9 % (10/25/18 5:10 AM) 1.0 % (10/24/18 4:58 AM) Basophils [0.0-1.0 %] 34 mg/dL *HI* (10/26/18 7:20 AM) 32 mg/dL *HI* (10/25/18 5:10 AM) 59 mg/dL *HI* (10/24/18 4:58 AM) BUN [7-22 mg/dL] 8.4 mg/dL *LOW* (10/26/18 7:20 AM) 8.9 mg/dL (10/25/18 5:10 AM) 8.7 mg/dL (10/24/18 4:58 AM) Calcium Lvl [8.5-10.5 mg/dL] 101 mEq/L (10/26/18 7:20 AM) 99 mEq/L (10/25/18 5:10 AM) 101 mEq/L (10/24/18 4:58 AM) Chloride Lvl [95-109 mEq/L] 26 mEq/L (10/26/18 7:20 AM) 27 mEq/L (10/25/18 5:10 AM) 23 mEq/L *LOW* (10/24/18 4:58 AM) CO2 [24-32 mEq/L] 4.37 mg/dL *HI* (10/26/18 7:20 AM) 4.66 mg/dL *HI* (10/25/18 5:10 AM) 7.46 mg/dL *HI* (10/24/18 4:58 AM) Creatinine Lvl [0.50-1.40 mg/dL] <0.1 mg/dL (10/17/18 6:16 PM) Bili Direct [0.0-0.3 mg/dL] 4.0 % (10/26/18 7:20 AM) 2.9 % (10/25/18 5:10 AM) 5.6 % *HI* (10/24/18 4:58 AM) Eosinophils [0.0-4.0 %] 4.3 g/dL *HI* (10/17/18 6:16 PM) Globulin [2.7-4.2 g/dL] 97 mg/dL (10/26/18 7:20 AM) 109 mg/dL *HI* (10/25/18 5:10 AM) 103 mg/dL *HI* (10/24/18 4:58 AM) Glucose Lvl [70-99 mg/dL] Negative *NA* (10/19/18 5:06 AM) Hep Bs Ag [Negative] 31.2 % *LOW* (10/26/18 7:20 AM) 34.8 % *LOW* (10/25/18 5:10 AM) 31.5 % *LOW* (10/24/18 4:58 AM) Hct [36.0-48.0 %] 10.8 g/dL *LOW* (10/26/18 7:20 AM) 12.0 g/dL (10/25/18 5:10 AM) 11.0 g/dL *LOW* (10/24/18 4:58 AM) Hgb [12.0-16.0 g/dL] 2.36 *HI* (10/26/18 11:47 AM) 1.77 *HI* (10/25/18 5:10 AM) 1.47 *HI* (10/24/18 2:17 PM) INR [0.85-1.17] 3.9 mEq/L (10/26/18 7:20 AM) 4.1 mEq/L (10/25/18 5:10 AM) 4.5 mEq/L (10/24/18 4:58 AM) Potassium Lvl [3.5-5.1 mEq/L] 45.2 % *HI* (10/26/18 7:20 AM) 25.0 % (10/25/18 5:10 AM) 32.5 % (10/24/18 4:58 AM) Lymphocytes [20.0-40.0 %] 2+ *ABN* (10/26/18 7:20 AM) 3+ *NA* (10/25/18 5:10 AM) 2+ *ABN* (10/24/18 4:58 AM) Macrocyte [None Seen] 37.7 pg *HI* (10/26/18 7:20 AM) 37.7 pg *HI* (10/25/18 5:10 AM) 37.8 pg *HI* (10/24/18 4:58 AM) MCH [27.0-31.0 pg] 34.6 g/dL (10/26/18 7:20 AM) 34.3 g/dL (10/25/18 5:10 AM) 34.8 g/dL (10/24/18 4:58 AM) MCHC [32.0-36.0 g/dL] 108.9 fL *HI* (10/26/18 7:20 AM) 109.8 fL *HI* (10/25/18 5:10 AM) 108.7 fL *HI* (10/24/18 4:58 AM) MCV [80.0-98.0 fL] 2.3 mg/dL (10/20/18 5:17 AM) Magnesium Lvl [1.8-2.4 mg/dL] 8.1 % (10/26/18 7:20 AM) 12.8 % *HI* (10/25/18 5:10 AM) 9.9 % (10/24/18 4:58 AM) Monocytes [2.0-12.0 %] 9.0 fL (10/26/18 7:20 AM) 8.9 fL (10/25/18 5:10 AM) 9.1 fL (10/24/18 4:58 AM) MPV [7.4-10.4 fL] 137 mEq/L (10/26/18 7:20 AM) 137 mEq/L (10/25/18 5:10 AM) 138 mEq/L (10/24/18 4:58 AM) Sodium Lvl [135-145 mEq/L] 169 K/CMM (10/26/18 7:20 AM) 172 K/CMM (10/25/18 5:10 AM) 161 K/CMM (10/24/18 4:58 AM) Platelet [133-450 K/CMM] 41.4 % *LOW* (10/26/18 7:20 AM) 58.4 % (10/25/18 5:10 AM) 51.0 % (10/24/18 4:58 AM) Segs [45.0-75.0 %] 7.5 g/dL (10/17/18 6:16 PM) Total Protein [6.4-8.4 g/dL] 25.3 seconds *HI* (10/26/18 11:47 AM) 20.2 seconds *HI* (10/25/18 5:10 AM) 17.5 seconds *HI* (10/24/18 2:17 PM) PT [12.0-14.7 seconds] 55.7 seconds *HI* (10/17/18 6:16 PM) PTT [22.9-35.8 seconds] 2.87 M/CMM *LOW* (10/26/18 7:20 AM) 3.17 M/CMM *LOW* (10/25/18 5:10 AM) 2.90 M/CMM *LOW* (10/24/18 4:58 AM) RBC [4.20-5.40 M/CMM] 16.8 % *HI* (10/26/18 7:20 AM) 16.5 % *HI* (10/25/18 5:10 AM) 16.8 % *HI* (10/24/18 4:58 AM) RDW [11.5-14.5 %] 0.8 mg/dL (10/17/18 6:16 PM) Bili Total [0.2-1.3 mg/dL] <0.02 ng/mL (10/21/18 11:20 AM) <0.02 ng/mL (10/20/18 6:04 PM) <0.02 ng/mL (10/17/18 6:16 PM) Troponin-I [0.00-0.40 ng/mL] Many /HPF *ABN* (10/23/18 6:55 PM) UA Bacteria [None Seen /HPF] Negative *NA* (10/23/18 6:55 PM) UA Bili [Negative] Small *ABN* (10/23/18 6:55 PM) UA Blood [Negative] Red *NA* (10/23/18 6:55 PM) UA Color 50 mg/dL *ABN* (10/23/18 6:55 PM) UA Glucose [Negative mg/dL] Negative mg/dL *NA* (10/23/18 6:55 PM) UA Ketones [Negative mg/dL] Large *ABN* (10/23/18 6:55 PM) UA Leuk Est [Negative] Few /LPF *NA* (10/23/18 6:55 PM) UA Mucus [None Seen /LPF] Negative (10/23/18 6:55 PM) UA Nitrite [Negative] 8.0 (10/23/18 6:55 PM) UA pH [5.0-8.0] 100 mg/dL *ABN* (10/23/18 6:55 PM) UA Protein [Negative mg/dL] 19 /HPF *HI* (10/23/18 6:55 PM) UA RBC [0-2 /HPF] 1.008 (10/23/18 6:55 PM) UA Spec Grav [<=1.030] Many /LPF *ABN* (10/23/18 6:55 PM) UA Sq Epi [Few /LPF] Marked *ABN* (10/23/18 6:55 PM) UA Turbidity [Clear] <=1.0 mg/dL *NA* (10/23/18 6:55 PM) UA Urobilinogen [0.1-1.0 mg/dL] >182 /HPF *HI* (10/23/18 6:55 PM) UA WBC [0-5 /HPF] 3.1 K/CMM *LOW* (10/26/18 7:20 AM) 4.8 K/CMM (10/25/18 5:10 AM) 5.5 K/CMM (10/24/18 4:58 AM) WBC [3.7-10.4 K/CMM] 1Result Comment: The eGFR is calculated using the [...] from the National Kidney Disease Education Program ( NKDEP) which additionally recommends that when the eGFR is used in patients with extremes of body mass index for purposes of drug dosing, the eGFR should be mul tiplied by the estimated BMI. 2Result Comment: The eGFR is calculated using the [...] from the National Kidney Disease Education Program ( NKDEP) which additionally recommends that when the eGFR is used in patients with extremes of body mass index for purposes of drug dosing, the eGFR should be mul tiplied by the estimated BMI. 3Result Comment: The eGFR is calculated using the [...] from the National Kidney Disease Education Program ( NKDEP) which additionally recommends that when the eGFR is used in patients with extremes of body mass index for purposes of drug dosing, the eGFR should be mul tiplied by the estimated BMI. Microbiology Reports TEST: Culture: Urine STATUS: Auth (Verified) BODY SITE: SOURCE: Urine, Clean Catch COLLECTED DATE/TIME: 10/23/18 6:55 PM FINAL REPORT <10,000 CFU/mL Skin Celine Immunizations No data available for this section Procedures Procedure Date Related Diagnosis Body Site Status Cardiac pacemaker procedure Completed Social History Social History Type Response Alcohol Never Employment/School Status: Retired. Substance Abuse Use: None. Smoking Status Never smoker; Previous puneet tment: None; Exposure to Tobacco Smoke None; Cigarette Smoking Last 365 Days No; Reg Smoking Cessation Counseling No; Tobacco use per day: 0; entered on: 10/18/18 Assessment and Plan Extracted from: Title: Cardiology Progress Note * Author: Amrit Posey Date: 10/26/18 Impression and Plan 1. Chronic hypotension 2. ESRD on HD 3. PPM 4. HTN 5. Paroxysmal Afib Recs: - continue current CV meds - midodrine for hypotension - warfarin for INR 2-3 - PPM interrogation showed normal device function Extracted from: Title: Clinical Document Author: Helene Hernandez MD Date: 10/26/18 Discharge Summary [facility] MD Discharge Diagnosis: *Hypertensive urgency *Labile [...] done during the episode for which an [employer]ENDER was called. She required oxygen at that time and O2 sat was 87% per report. Her UTI was found to be contaminant. Her INr is now therapeutic. She can dc home today VitalsTmp(F)[id number] 10/26 15:[id number]--- 10/26 11:[id number]--- 10/26 11:1098.036437/4819------ 10/26 11:00----[id number]------ 10/26 10:45----11462/[id number]------ 24 Hr Tmax: 99.4F (37.44c) at 10/26 00:4 2Vital Signs are the last 5 in the past 48 hours. Notify your physician if: Pain Follow Up When: 2 Weeks Reason for Follow Up: Follow Up on Treatment Diet: Renal Diet Activity: No restrictions Labs (Last four charted values) WBC L 3.1(OCT 26)4.8(OCT 25)5.5(OCT 24)5.6(OCT 23) Hgb L 10.8(OCT 26)12.0(OCT 25)L 11.0(OCT 24)L 10.8(OCT 23) Hct L 31.2(OCT 26)L 34.8(OCT 25)L 31.5(OCT 24)L 31.5(OCT 23) Plt 169(OCT 26)172(OCT 25)161(OCT 24)157(OCT 23) Na 137(OCT 26)137(OCT 25)138(OCT 24)135(OCT 23) K 3.9(OCT 26)4.1(OCT 25)4.5(OCT 24)4.6(OCT 23) CO2 26(OCT 26)27(OCT 25)L 23(OCT 24)26(OCT 23) Cl 101(OCT 26)99(OCT 25)101(OCT 24)99(OCT 23) Cr H 4.37(OCT 26)H 4.66(OCT 25)H 7.46(OCT 24)H 5.87(OCT 23) BUN H 34(OCT 26)H 32(OCT 25)H 59(OCT 24)H 50(OCT 23) Glucose Random 97(OCT 26)H 109(OCT 25)H 103(OCT 24)H 131(OCT 23) Mg 2.3(OCT 20) Ca L 8.4(OCT 26)8.9(OCT 25)8.7(OCT 24)8.9(OCT 23) PT H 25.3(OCT 26)H 20.2(OCT 25)H 17.5(OCT 24)H 16.9(OCT 24) INR H 2.36(OCT 26)H 1.77(OCT 25)H 1.47(OCT 24)H 1.40(OCT 24) PTT H 55.7(OCT 17) Troponin <0.02(OCT 21)<0.02(OCT 20)<0.02(OCT 17)Medications (12) Active Scheduled: (4) cefTRIAXone 1 gm INJ VL + water for INJection, sterile 10 mL 1 gm, IVP, [id number] heparin 5000 unit/1 ml INJ VL 5,000 [...] sterile water 10 mL) 1 gm IVP [id number] 120 ml/hr 10/25/18 heparin 5,000 unit SUB-Q [...] Time Meds: None Continuous Infusions: None Extracted from: Title: Pulmonary consult note Author: Pedro Hendrix MD [...] done during the episode for which an [employer]ER was called. She required oxygen at that [...] HPI Review of systems: Allergies Allergies (1) ActiveReaction No Known Medication AllergiesNone documented Procedure History Cardiac pacemaker procedure Past [...] None Labs (Last four charted values) WBC 5.2(OCT 20)6.0(OCT 19)6.3(OCT 17) Hgb L 11.4(OCT 20)L 11.5(OCT 19)12.3(OCT 17) Hct L 33.5(OCT 20)L 34.0(OCT 19)36.2(OCT 17) Plt 164(OCT 20)163(OCT 19)194(OCT 17) Na 136(OCT 20)139(OCT 19)138(OCT 17) K 4.4(OCT 20)4.8(OCT 19)4.5(OCT 17) CO2 31(OCT 20)30(OCT 19)30(OCT 17) Cl 99(OCT 20)99(OCT 19)98(OCT 17) Cr H 4.62(OCT 20)H 6.78(OCT 19)H 4.27(OCT 17) BUN 18(OCT 20)H 39(OCT 19)15(OCT 17) Glucose Random 91(OCT 20)92(OCT 19)H 133(OCT 17) Mg 2.3(OCT 20) Ca L 8.0(OCT 20)L 8.0(OCT 20)L 8.1(OCT 19)9.5(OCT 17) PT H 19.8(OCT 22)H 17.5(OCT 21)H 19.5(OCT 20)H 31.4(OCT 19) INR H 1.72(OCT 22)H 1.47(OCT 21)H 1.69(OCT 20)H 3.12(OCT 19) PTT H 55.7(OCT 17) Troponin <0.02(OCT 21)<0.02(OCT 20)<0.02(OCT 17) All imaging reviewed. Objective: I&ORecordInOutBal 4hr Tot 260 [id number] Tot 2 0 2 Lines, Tubes, and Drains: 10/17/2018 16:57 Peripheral Lines: Antec ubital Left 20 gauge Over the needle catheter 10/22/2018 07:58 SpO2 10/21/2018 20:00 O2 Sat LocationRight hand/finger Vital Signs (last 24 hrs) Last Charted Temp Oral97.5 DegF (OCT 22 07:58) Heart Rate Vxblmpuhis35 bpm (OCT 22 07:58) Resp Rate 18 BRMIN (OCT 22 07:58) SNW952 mmHg (OCT 22 07:58) DBP63 mmHg (OCT 22 07:58) Exam: General: not [...] as outpatient, remains on Coumadin, INR goal 2 3 Suspected ETHAN, patient with symptoms of sleep apnea, no prior polysomnogram and will plan for outpatient follow-up and sleep study at that time. I spent greater than 30 minutes in reviewing the clinical case, examining the patient, and discussing with the patient/patient's family, and with other consultants, the clinical course, treatment plan, and prognosis. Pedro Hendrix MD Pulmonary and Critical Care Extracted from: Title: Clinical Document Author: Wayne Torrez MD Date: 10/18/18 full H&P dictated, #[id number] date: 10/17/2018 23:55
--- OUTSIDE RECORDS SUMMARY | 2019-06-28 16:20 | XMS REPORT | Summary of Care ---
Author Author [facility] Organization [facility] Address Unknown Phone Unavailable Encounter [facility] [place](KARL) [id number] Date(s): 11/08/18 - 11/10/18 [facility] [address] [place] [address]- Discharge Disposition: [facility] Facility Attending Physician: Helene Hernandez MD Admitting Physician: Helene Hernandez MD Vital Signs 1 2 3 Most recent to oldest [Reference Range]: 167.64 cm (11/09/18 9:41 AM) 167.64 cm (11/08/18 6:08 PM) 167.64 cm (11/08/18 11:46 AM) Height 98.6 DegF (11/10/18 8:01 AM) 98.0 DegF (11/10/18 4:00 AM) 98.4 DegF (11/09/18 11:18 PM) Temperature Oral [96.4-99.1 DegF] 106/75 mmHg (11/10/18 8:01 AM) 131/82 mmHg (11/10/18 4:00 AM) 164/73 mmHg *HI* (11/09/18 11:18 PM) Blood Pressure [90-140/60-90 mmHg] 14 BRMIN (11/10/18 8:01 AM) 16 BRMIN (11/10/18 4:00 AM) 17 BRMIN (11/09/18 11:18 PM) Respiratory Rate [14-20 BRMIN] 75 bpm (11/10/18 8:01 AM) 82 bpm (11/10/18 4:00 AM) 90 bpm (11/09/18 11:18 PM) Peripheral Pulse Rate [60-100 bpm] 81.818 kg (11/09/18 9:41 AM) 81.818 kg (11/08/18 6:08 PM) 81.818 kg (11/08/18 11:46 AM) Weight 29.11 m2 (11/09/18 9:41 AM) 29.11 m2 (11/08/18 6:08 PM) 29.11 m2 (11/08/18 11:46 AM) Body Mass Index Problem List No data available for this section Allergies, Adverse Reactions, Alerts No Known Medication Allergies Medications aspirin 325 mg, 1 tab, Route: PO, Drug form: TAB, ONCE, Dosing Weight 81.818, kg, Priori ty: STAT, Start date: 11/08/18 16:12:00 CDT, Stop date: 11/08/18 16:12:00 CDT, 0 Notes: Take with food. Start Date: 11/08/18 Stop Date: 11/08/18 Status: Completed lactulose 10 g/15 mL oral syrup 20 gm = 30 mL, PO, Daily, PRN constipation, # 240 mL, 0 Refill(s) Start Date: 11/08/18 Stop Date: 11/16/18 Status: Ordered MiraLax 17 gm, PO, Daily, 0 Refill(s) Start Date: 11/08/18 Status: Ordered Reglan 5 mg oral tablet 5 mg = 1 tab, PO, QID, # 28 tab, 0 Refill(s) Start Date: 11/08/18 Stop Date: 11/15/18 Status: Ordered Saline Flush 0.9% 10 ml, Route: IVP, Drug Form: INJ, Dosing Weight 81.818, kg, Q12H, Start date: 0 11/08/18 21:00:00 CDT, Duration: 30 day, Stop date: 12/08/18 9:00:00 CDT, 0 Notes: (Same as: BD Posiflush) Start Date: 11/08/18 Stop Date: 11/10/18 Status: Discontinued Saline Flush 0.9% 10 ml, Route: IVP, Drug Form: INJ, Dosing Weight 81.818, kg, PRN, PRN Line Flush , Start date: 11/08/18 19:29:00 CDT, Duration: 30 day, Stop date: 12/08/18 19:28 :00 CDT, 0 Notes: (Same as: BD Posiflush) Start Date: 11/08/18 Stop Date: 11/10/18 Status: Discontinued sevelamer 800 mg oral tablet 1,600 mg = 2 tab, PO, TID-Meals, # 180 tab, 0 Refill(s) Start Date: 11/08/18 Stop Date: 12/08/18 Status: Ordered sodium polystyrene sulfonate 15 g/60 mL oral and rectal suspension 7.5 gm = 30 mL, Daily, on WEDNESDAY, WEDNESDAY, WEDNESDAY, 0 Refill(s) Start Date: 11/08/18 Status: Ordered thiamine 100 mg, 1 tab, Route: PO, Drug form: TAB, Daily, Dosing Weight 81.818, kg, Start date: 11/09/18 9:00:00 CDT, Duration: 30 day, Stop date: 12/08/18 9:00:00 CDT, 0 Notes: (Same As: Vitamin B1) Start Date: 11/09/18 Stop Date: 11/10/18 Status: Discontinued tramadol 50 mg oral tablet 50 mg = 1 tab, PO, Q6H, PRN Pain, # 40 tab, 0 Refill(s) Start Date: 11/08/18 Stop Date: 11/18/18 Status: Ordered Results Most recent to 1 2 oldest [Reference Range]: Neutrophils # 2.8 K/CMM 3.7 K/CMM [1.5-8.1 K/CMM] (11/10/18 4:30 AM) (11/08/18 2:28 PM) Lymphocytes # 1.6 K/CMM 3.0 K/CMM [1.0-5.5 K/CMM] (11/10/18 4:30 AM) (11/08/18 2:28 PM) Monocytes # [0.0-0.8 0.7 K/CMM 1.0 K/CMM K/CMM] (11/10/18 4:30 AM) *HI* (11/08/18 2:28 PM) Eosinophils # 0.2 K/CMM 0.2 K/CMM [0.0-0.5 K/CMM] (11/10/18 4:30 AM) (11/08/18 2:28 PM) Basophils # [0.0-0.2 0.1 K/CMM 0.1 K/CMM K/CMM] (11/10/18 4:30 AM) (11/08/18 2:28 PM) eGFR 11 mL/min/1.73m2 1 8 mL/min/1.73m2 2 *NA* *NA* (11/10/18 4:30 AM) (11/08/18 2:28 PM) AGAP [10.0-20.0 10.9 mEq/L 11.1 mEq/L mEq/L] (11/10/18 4:30 AM) (11/08/18 2:28 PM) Basophils [0.0-1.0 1.0 % 0.8 % %] (11/10/18 4:30 AM) (11/08/18 2: PM) BUN [7-22 mg/dL] 23 mg/dL 35 mg/dL *HI* *HI* (11/10/18 4:30 AM) (11/08/18 2: PM) Calcium Lvl 8.7 mg/dL 9.6 mg/dL [8.5-10.5 mg/dL] (11/10/18 4:30 AM) (11/08/18 2:28 PM) CHD Risk [3.90-5.80] 6.42 *HI* (11/09/18 2:31 AM) Chol [<=199 mg/dL] 276 mg/dL *HI* (11/09/18 2:31 AM) Total CK [12-191 86 unit/L unit/L] (11/08/18 2: PM) Chloride Lvl [95-109 100 mEq/L 97 mEq/L mEq/L] (11/10/18 4:30 AM) (11/08/18 2:28 PM) CO2 [24-32 mEq/L] 31 mEq/L 29 mEq/L (11/10/18 4:30 AM) (11/08/18 2:28 PM) Creatinine Lvl 4.08 mg/dL 5.18 mg/dL [0.50-1.40 mg/dL] *HI* *HI* (11/10/18 4:30 AM) (11/08/18 2:28 PM) Eosinophils [0.0-4.0 3.5 % 2.6 % %] (11/10/18 4:30 AM) (11/08/18 2:28 PM) Glucose Lvl [70-99 121 mg/dL 111 mg/dL mg/dL] *HI* *HI* (11/10/18 4:30 AM) (11/08/18 2:28 PM) Hep Bs Ag [Negative] Negative *NA* (11/09/18 5:50 PM) Hct [36.0-48.0 %] 36.0 % 34.7 % (11/10/18 4:30 AM) *LOW* (11/08/18 2:28 PM) HDL [>=61 mg/dL] 43 mg/dL *LOW* (11/09/18 2:31 AM) Hgb [12.0-16.0 g/dL] 12.2 g/dL 12.0 g/dL (11/10/18 4:30 AM) (11/08/18 2:28 PM) Hgb A1C [<=5.6 %] 5.6 % (11/09/18 2:31 AM) INR [0.85-1.17] 1.31 *HI* (11/08/18 3:19 PM) Potassium Lvl 4.9 mEq/L 5.1 mEq/L [3.5-5.1 mEq/L] (11/10/18 4:30 AM) (11/08/18 2:28 PM) LDL (Calculated) See Note mg/dL 3 [<=99 mg/dL] *NA* (11/09/18 2:31 AM) Lymphocytes 30.0 % 37.0 % [20.0-40.0 %] (11/10/18 4:30 AM) (11/08/18 2:28 PM) Macrocyte [None 2+ 2+ Seen] *ABN* *ABN* (11/10/18 4:30 AM) (11/08/18 2:28 PM) MCH [27.0-31.0 pg] 36.9 pg 37.2 pg *HI* *HI* (11/10/18 4:30 AM) (11/08/18 2:28 PM) MCHC [32.0-36.0 33.9 g/dL 34.5 g/dL g/dL] (11/10/18 4:30 AM) (11/08/18 2:28 PM) MCV [80.0-98.0 fL] 108.9 fL 107.9 fL *HI* *HI* (11/10/18 4:30 AM) (11/08/18 2: PM) Magnesium Lvl 2.7 mg/dL [1.8-2.4 mg/dL] *HI* (11/08/18 2: PM) Monocytes [2.0-12.0 12.6 % 13.1 % %] *HI* *HI* (11/10/18 4:30 AM) (11/08/18 2: PM) MPV [7.4-10.4 fL] 8.9 fL 9.1 fL (11/10/18 4:30 AM) (11/08/18 2: PM) Sodium Lvl [135-145 137 mEq/L 132 mEq/L mEq/L] (11/10/18 4:30 AM) *LOW* (11/08/18 2: PM) Platelet [133-450 192 K/CMM 207 K/CMM K/CMM] (11/10/18 4:30 AM) (11/08/18 2: PM) Segs [45.0-75.0 %] 52.9 % 46.5 % (11/10/18 4:30 AM) (11/08/18 2: PM) PT [12.0-14.7 16.0 seconds seconds] *HI* (11/08/18 3: PM) PTT [22.9-35.8 33.6 seconds seconds] (11/08/18 3: PM) RBC [4.20-5.40 3.31 M/CMM 3.21 M/CMM M/CMM] *LOW* *LOW* (11/10/18 4:30 AM) (11/08/18 2: PM) RDW [11.5-14.5 %] 15.6 % 15.9 % *HI* *HI* (11/10/18 4:30 AM) (11/08/18 2:28 PM) Trig [<=149 mg/dL] 433 mg/dL *HI* (11/09/18 2:31 AM) Troponin-I <0.02 ng/mL [0.00-0.40 ng/mL] (11/08/18 2:28 PM) WBC [3.7-10.4 K/CMM] 5.2 K/CMM 8.0 K/CMM (11/10/18 4:30 AM) (11/08/18 2:28 PM) VLDL See Note 4 *NA* (11/09/18 2:31 AM) 1Result Comment: The eGFR is calculated using [...] tiplied by the estimated BMI. 3Result Comment: LDL cholesterol cannot be calculated due to very high triglycerides (>400 mg/dL). Recommend Direct LDL if clinically indicated. 4Result Comment: VLDL - Cholesterol level cannot be accurately calculated due to very high triglycerides (>400 mg/dL). Immunizations No data available for this section Procedures Procedure Date Related Diagnosis Body Site Status Cardiac pacemaker procedure Completed Cholecystectomy Completed Social History Social History Type Response Alcohol Never Employment/School Status: Retired. Substance Abuse Use: None. Smoking Status Never smoker; Previous puneet tment: None; Exposure to Tobacco Smoke None; Cigarette Smoking Last 365 Days No; Reg Smoking Cessation Counseling No; Tobacco use per day: 0; entered on: 11/08/18 Assessment and Plan Extracted from: Title: Clinical Document Author: Ajit Casanova MD Date: 11/09/18 Nephrology Consult Ajit Casanova M.D. Date HISTORY OF PRESENT ILLNNESS PAST MEDICAL HISTORY This is a 68-year-old female with end-stage renal disease on hemodialysis Uiznne-Epxghxldq-Mdrfpg, admitted with tongue swelling and dysathria PAST [...] motor defecits SKIN: no rash, no bruises VitalsTmp(F)[id number] 11/09 21:1098.122503/65-------- 11/09 21:00----7885/56-------- 11/09 20:45----59734/83-------- 11/09 20:30----07451/83-------- 11/09 20:15----27374/111-------- 24 Hr Tmax: 98.1F (36.72c) at 11/09 14:5 1Vital Signs are the last 5 in the [...] Refill(s). Labs (Last four charted values) WBC 8.0(NOV 08) Hgb 12.0(NOV 08) Hct L 34.7(NOV 08) Plt 207(NOV 08) Na L 132(NOV 08) K 5.1(NOV 08) CO2 29(NOV 08) Cl 97(NOV 08) Cr H 5.18(NOV 08) BUN H 35(NOV 08) Glucose Random H 111(NOV 08) Mg H 2.7(NOV 08) Ca 9.6(NOV 08) PT H 16.0(NOV 08) INR H 1.31(NOV 08) PTT 33.6(NOV 08) Troponin <0.02(NOV 08) Total CK 86(NOV 08) ASSESSMENT AND PLAN 1- ESRD HEMODIALYSIS PROCEDURE: seen on hemodialysis, see orders, tolerating current prescription. 2- anemia of chronic disease hg 12 3- dysarthria , tongue swelling better 4- discharge post dialysis Extracted from: Title: Clinical Document Author: Helene Hernandez MD Date: 11/09/18 Discharge Summary [facility] Helene Hernandez MD Discharge Diagnosis: 1. Dysarthria 2. End-stage renal disease on dialysis. 3. Orthostatic hypotension. 4. A-fib. Brief Hospital Course: The patient is a 68-year-old female who is a history of end-stage renal disease on hemodialysis who presented from the [facility] with possible dysarthria. The patient was seen and evaluated by neurology who feels that the patient was at her baseline and requires no further neurologic intervention. The patient is scheduled for hemodialysis this evening. We will arrange transport to the [facility] once feasible. VitalsTmp(F)[id number] 11/09 14:[id number]/987195--- 11/09 11:5398.104734/427228--- 11/09 07:3998.414409/410133--- 11/09 03:082846711/397110--- 11/09 00:0498.610830/485786--- 24 Hr Tmax: 98.6F (37.00c) at 11/08 17:1 7Vital Signs are the last 5 in the past 48 hours. Discharge home See Med reconciliation form F/U with PCP in 2 weeks, medical specialists as necessary Diet: cont same diet Activity as jose Labs (Last four charted values) WBC 8.0(NOV 08) Hgb 12.0(NOV 08) Hct L 34.7(NOV 08) Plt 207(NOV 08) Na L 132(NOV 08) K 5.1(NOV 08) CO2 29(NOV 08) Cl 97(NOV 08) Cr H 5.18(NOV 08) BUN H 35(NOV 08) Glucose Random H 111(NOV 08) Mg H 2.7(NOV 08) Ca 9.6(NOV 08) PT H 16.0(NOV 08) INR H 1.31(NOV 08) PTT 33.6(NOV 08) Troponin <0.02(NOV 08) Total CK 86(NOV 08)Medications (3) Active Scheduled: (2) sodium chloride 0.9% [...] mg PO ONCE Continuous Infusions: None Extracted from: Title: History and Physical Author: Ric Morales Date: 11/08/18 68 y o female patient [...] Telemetry Capable Location, Expected LOS: 1 Midnight, OmitRic austin MD, Admit MD Review/Approve Yes, Isolation: No Isolation/Standard Precautions, Dysarthria 2.ESRD on dialysis(N18.6) We will continue hemodialysis as scheduled. We will consult director of quality for furthermanagement recommendation. 3.Hypertension(I10) We will monitor her blood pressure per unit protocol and continue with hypertensive medications. Warfarinfor DVT. Time taken for H&P is 50 min. Expected to spend at least 1 midnight. Time taken for H&P is greater than 45 minutes.
[2019-06-28] MEDS ORDERED: DEXTROSE 50% SYRINGE 50 ML IV PRN (16:30)
[2019-06-28 16:55] LABS: INR 1.05; PROTHROMBIN TIME 14.4 seconds (11.9-14.5)
[2019-06-28 16:56] LABS: PARTIAL THROMBOPLASTIN TIME 28.8 seconds (23.8-35.5)
--- NOTE | 2019-06-28 17:21 | NUR ---
consult patient is seen and examind [id number] patient was seen and examind discussed with ER
[2019-06-28] MEDS: INSULIN LISPRO 100 UNIT/1 ML 3ML VIAL SQ SCH ×2 (18:19→21:00)
--- NOTE | 2019-06-28 19:38 | Diagnostic Imaging Report ---
CT chest without enhancement CPT code: 85828 INDICATION: Fever, altered level of consciousness TECHNIQUE: Thin collimation axial images obtained from the thoracic inlet to the level of the diaphragm without intravenous contrast. Dose reduction techniques used: Automated exposure control, adjustment of the mAs and/or kVp according to patient size, standardized low-dose protocol, and/or iterative reconstruction technique. RADIATION DOSE: Total DLP: 481.8 mGy*cm Estimated effective dose: (DLP x 0.015 x size factor) mSv CTDIvol has been reviewed. It is below the limits set by the Radiation Protocol Committee (RPC). COMPARISON: Report of CT chest performed 11/10/2012, CT abdomen/pelvis 05/27/2018. CHEST FINDINGS: Lymph nodes: No enlarged axillary, supraclavicular, mediastinal, or hilar lymph nodes. Thyroid: Calcification in the left lobe measures 6 mm. Tiny low attenuating lesions in each lobe are too small to characterize.. Mediastinum: The heart is enlarged. There are heavy calcifications of the coronary arteries, mitral valve, and aortic valve. The main pulmonary artery measures 3.3 cm. Large bore dialysis catheter terminates in the cavoatrial junction. No pericardial effusion. Epicardial pacer leads in the right ventricle. Lungs: Right: Diffuse mild hyperinflation. Groundglass nodule in the right upper lobe measures 8 mm. Wispy bands of subsegmental atelectasis in the lower lobe. Subcentimeter calcified granuloma in the middle lobe. Left: Diffuse hyperinflation. Infiltrate or atelectasis in the anterior upper lobe measures 15 mm. Wispy bands of atelectasis in the length Posterior lower lobe. Airways: Mild tracheobronchomalacia. Diffuse calcifications of the tracheobronchial tree. Pleura: No pleural effusion or pleural based mass. ABDOMEN FINDINGS: The kidneys are atrophic. There are calcifications throughout the arterial structures. No mass or lymphadenopathy in the visualized upper abdomen. The gallbladder is absent. Bones: Increased attenuation suggestive renal osteodystrophy. Median sternotomy wires appear intact. Soft tissues: Pacemaker battery pack in the left upper quadrant. Multiple small vessel calcifications throughout the chest. There is an expandable stent in the left axillary vein. There are multiple punctate calcifications in the left breast. IMPRESSION:: 1. Left upper lobe airspace opacity either due to focal atelectasis or pneumonia. Nonspecific groundglass nodule in the right upper lobe. Scattered foci of atelectasis in each lung. 2. Findings of end-stage renal disease. 3. Cardiomegaly. Enlarged main pulmonary artery suggestive of pulmonary artery hypertension. 4. Multiple calcifications in the left breast. Please correlate with recent mammogram. Signed by: Dr. Fabian Avalos MD on 06/28/2019 7:34 PM
[2019-06-28 19:50] LABS: CREATINE KINASE MB 7.6 ng/mL (0-5.0)
[2019-06-28] MEDS ORDERED: ACETAMINOPHEN 650 MG SUPP PR ONE ×3 (20:10→20:15)
[2019-06-28] MEDS ORDERED: SODIUM CHLORIDE 0.9% 1000ML 1,000 ML ONE (21:44)
[2019-06-28] MEDS ORDERED: SODIUM CHLORIDE 0.9% 500ML 500 ML IV ONE ×3 (21:45→23:45)
[2019-06-28] MEDS ORDERED: SODIUM CHLORIDE 0.9% 1000ML 1,000 ML IV ONE ×2 (21:45)
[2019-06-28 22:30] VITALS: BP 76/40
[2019-06-28 23:15] VITALS: BP 61/33
[2019-06-28] MEDS ORDERED: NOREPINEPHRINE 8 MG/D5W 250 ML 250 ML ONE (23:29)
[2019-06-28] MEDS ORDERED: SODIUM CHLORIDE 0.9% 1000ML 0 ML ONE (23:34)
[2019-06-28] MEDS ORDERED: SODIUM CHLORIDE 0.9% 1000ML 1,000 ML IV SCH (23:45)
[2019-06-28] MEDS ORDERED: ACETAMINOPHEN 1000 MG/100 ML IV PRN (23:45)
[2019-06-28] MEDS: AZITHROMYCIN 250MG/NS 100 ML 100 ML IV SCH (23:45)
[2019-06-29] VITALS (25 sets, daily range): BP systolic 77–191; BP diastolic 40–125
[2019-06-29 00:17] LABS: ABG HCO3 27 mmol/L (22-26); ABG PCO2 39 mmHg (35-45); ABG PH 7.44 (7.35-7.45); ABG PO2 87 mmHg (80-105)
--- NOTE | 2019-06-29 01:57 | Consultation ---
DATE OF CONSULTATION: Pulmonary Consultation Patient of Dr. Serrano and Dr. Dougherty. HISTORY OF PRESENT ILLNESS: Unfortunate 68-year-old woman with a history of end-stage renal disease, hypertension, diabetes mellitus. She is currently lethargic and unable to respond to questions. She has been dialysis dependent for several years. She is currently a resident in a [facility]. ALLERGIES: ACCORDING TO RECORD, SHE HAS NO KNOWN ALLERGIES. MEDICATIONS: Include: 1. Tylenol No. 3. 2. Xanax. 3. Ropinirole. 4. Colace. 5. Zocor. 6. Tramadol. 7. Warfarin. 8. Iron. PAST MEDICAL HISTORY: There are surgical scars, presumably for AV fistulas, which have failed. History is unobtainable at this time. PHYSICAL EXAMINATION: VITAL SIGNS: Temperature 100.7 max, pulse 98, blood pressure 124/73. GENERAL: Very lethargic, difficult to arouse. neck supple LUNGS: Diminished breath sounds. HEART: Regular rhythm. ABDOMEN: Obese. There is a large graft noted in the right arm and subclavian. IMPRESSION: Possible drug overdose with fever, possible COVID-19. source of fever unclear PLAN: Empiric antibiotics. Hold all sedatives. Check blood gases. CT of the chest and studies of arterial blood gases are pending. Therapy of end-stage renal disease as per Nephrology Service. She has had drainage of abdominal wall abscess in the past under the left breast. This was drained by Dr. Cruz in the past. She has a history of diabetes. Plan is to continue support. Check blood gases. Supplemental oxygen. CT of the chest. Thank you for this kind referral. MD KEITH Richards/SHELLEY /[id number]
[2019-06-29] MEDS: NOREPINEPHRINE 8 MG/D5W 250 ML 8 MG in DEXTROSE 5% 250ML 0 ML IV SCH ×2 (02:49→23:30)
[2019-06-29] MEDS: MEROPENEM 500MG 500 MG in SODIUM CHLORIDE 0.9% 50ML 50 ML IV SCH ×3 (02:50→20:52)
[2019-06-29] MEDS: FAMOTIDINE 20 MG/2 ML VIAL IV SCH ×3 (02:51→17:05)
[2019-06-29 06:02] LABS: BASOPHILS % 0.4 % (0.0-1.0); EOSINOPHILS % 0.3 % (0.0-6.0); HEMATOCRIT 30.7 % (34.2-44.1); HEMOGLOBIN 9.8 g/dL (12.0-16.0); LYMPHOCYTES # (AUTO) 0.5 (1.0-3.2); LYMPHOCYTES % 5.4 % (18.0-39.1); MEAN CORPUSCULAR HEMOGLOBIN 35.8 pg (28-32); MEAN CORPUSCULAR HGB CONC 31.9 g/dL (31-35); MONOCYTES # (AUTO) 0.9 (0.2-0.8); MONOCYTES % 8.5 % (4.4-11.3); NEUTROPHILS # (AUTO) 8.4 (2.1-6.9); NEUTROPHILS % 84.3 % (38.7-80.0); PLATELET COUNT 117 x10e3/uL (140-360); RED BLOOD COUNT 2.74 x10e6/uL (3.6-5.1); RED CELL DISTRIBUTION WIDTH 16.9 % (11.7-14.4)
[2019-06-29 06:29] LABS: ALBUMIN 2.7 g/dL (3.5-5.0); ALBUMIN/GLOBULIN RATIO 0.6 (0.8-2.0); ANION GAP 19.9 mmol/L (8-16); CALCIUM 8.1 mg/dL (8.4-10.2); CREATININE, SERUM 9.04 mg/dL (0.57-1.11); POTASSIUM 4.9 mmol/L (3.5-5.1)
[2019-06-29] MEDS: INSULIN LISPRO 100 UNIT/1 ML 3ML VIAL SQ SCH ×4 (07:30→20:52)
--- NOTE | 2019-06-29 08:35 | Diagnostic Imaging Report ---
EXAM: Renal Ultrasound INDICATION: Sepsis COMPARISON: Chest CT 06/28/2019 TECHNIQUE: Transverse and longitudinal images of the kidneys and bladder were obtained. FINDINGS: Right Kidney: Size: 9.9 cm Echogenicity: Increased Parenchymal thickness: Decreased Collecting system: No hydronephrosis Stones: None Cyst/Mass: 1.2 cm simple cyst projects from the upper pole. Left Kidney: Size: 10 cm Echogenicity: Increased Parenchymal thickness: Decrease Collecting system: No hydronephrosis Stones: None Cyst/Mass: None Bladder: Nondistended and poorly visualized. IMPRESSION: Renal cortical thinning with increased echogenicity compatible with chronic medical renal disease. Signed by: Dr. Hayden Sofia M.D. on 06/29/2019 8:32 AM
[2019-06-29 09:09] LABS: ANISOCYTOSIS SLIGHT; PLATELET ESTIMATE SLIGHTLY DECREASED; PLATELET MORPHOLOGY COMMENT NORMAL; RBC MORPHOLOGY COMMENT NORMAL
--- NOTE | 2019-06-29 09:18 | Diagnostic Imaging Report ---
Examination: Single AP view of the chest. COMPARISON: CT of the chest 06/28/2019, chest radiograph 08/12/2019 INDICATION: Fever DISCUSSION: Stable position of right upper extremity HeRO graft. Lung volumes are low with vascular crowding in the bases and perihilar regions. Stable mild enlargement of the cardiac silhouette. Left axillary venous stent. No acute osseous abnormality. IMPRESSION: Low lung volumes with stable enlargement of the cardiac silhouette and pulmonary venous congestion. No new consolidations. Signed by: Dr. Hayden Sofia M.D. on 06/29/2019 9:15 AM
[2019-06-29] MEDS ORDERED: SODIUM CHLORIDE 0.9% 1000ML 2,000 ML ONE (09:58)
[2019-06-29] MEDS ORDERED: SODIUM CHLORIDE 0.9% 500ML 500 ML IV ONE (10:00)
[2019-06-29] MEDS ORDERED: SODIUM CHLORIDE 0.9% 1000ML 2,000 ML IV PRN (10:00)
[2019-06-29] MEDS ORDERED: SODIUM CHLORIDE 0.9% 500ML 500 ML IV PRN (10:15)
--- NOTE | 2019-06-29 11:00 | NUR ---
ST Note: Order for bedside swallow eval noted. Pt currently on HD. Pt will be done at 1400 per HD nurse. Will f/u later time permitting.
--- NOTE | 2019-06-29 11:04 | NUR ---
PT IS FROM [facility]
--- NOTE | 2019-06-29 11:04 | NUR ---
PT WAS AT DIALYSIS AND SENT TO ED
--- NOTE | 2019-06-29 12:39 | Consultation ---
DATE OF CONSULTATION: REASON FOR CONSULTATION: Sepsis. HISTORY OF PRESENT ILLNESS: This is a 68-year-old female, who has history of end-stage renal disease on hemodialysis and diabetes mellitus, comes in with lethargy. The patient does not provide any meaningful information. History was taken mainly from the chart. The patient came to the emergency room, where she is being admitted. Not a good source of information. PAST MEDICAL HISTORY: End-stage renal disease, diabetes mellitus, hypertension, coronary artery disease, and hyperlipidemia. PAST SURGICAL HISTORY: CABG, pacemaker placement, and left upper extremity fistula. ALLERGIES: NKA. SOCIAL HISTORY: From a [facility]. FAMILY HISTORY: Could not be obtained. REVIEW OF SYSTEMS: Could not be obtained. The patient, who is a 68-year-old female, seen in the emergency room. Discussed with ER physician. LABORATORY DATA: When she first came, her white count was 12.7 and hemoglobin 12.5. Sodium 141, potassium 4.9, and creatinine of 9.4. The patient was started on meropenem and azithromycin. She received a dose of vancomycin. The patient had a chest x-ray, showed no new infiltrate. CT of the chest was ordered and showed left upper lobe opacity with cardiomegaly, multiple left breast calcification. PHYSICAL EXAMINATION: GENERAL: She is noncommunicative. VITAL SIGNS: Stable, afebrile. When she first came, she had T-max of 103. HEENT: She is not icteric. NECK: Supple. CHEST: Few crackles. COR: S1 and S2. No S3, S4, or murmurs. ABDOMEN: Soft. Bowel sounds present. No tenderness. EXTREMITIES: No edema. SKIN: No rash. IMPRESSION: Sepsis on admission, concerned about pneumonia, concerned about urinary tract infection. Agree with blood cultures, urine cultures, meropenem 500 q.12 and vancomycin 500 after each dialysis. Recheck CBC. Recheck chem panel. Further recommendation depending on clinical progress. We will follow. MD JEANETTE Myers/SHELLEY /[id number]
--- NOTE | 2019-06-29 13:54 | Progress Note ---
DATE: SUBJECTIVE: Ms. Christine is currently in the intensive care unit. She had T-max 103, but currently better. No fever. Noncommunicative. OBJECTIVE: GENERAL: She is noncommunicative. VITAL SIGNS: Stable. Temperature 99.5, heart rate 89, blood pressure 109/41. HEENT: Normocephalic. She is not icteric. NECK: Supple. CHEST: Few rhonchi bilateral. COR: S1 and S2. No S3, S4, or murmur. ABDOMEN: Soft. Bowel sounds present. No tenderness. EXTREMITIES: No edema. SKIN: No rash. LABORATORY DATA: Creatinine 9.04. Her COVID-19 was negative. Influenza A and B are negative. IMPRESSION: Sepsis on admission, pneumonia probably aspiration, clinically better. Continue with meropenem. Await blood cultures. Continue vancomycin 500 after each hemodialysis. Further recommendations to follow. MD JEANETTE Myers/SHELLEY /[id number]
[2019-06-29] MEDS: WARFARIN SOD 1 MG TAB PO SCH (17:00)
--- NOTE | 2019-06-29 18:50 | Consultation ---
DATE OF CONSULTATION: 06/29/2019 HISTORY OF PRESENT ILLNESS: Makayla Christine known to us. She is a 68-year-old female, who brought with apparent fever and altered mental status and poorly reactive constricted pupils bilateral. Had a CT brain done. Please see official report, shows no acute intracranial hemorrhage or cortical infarct. There is stable disproportionate ventriculomegaly and generalized brain loss. Had a CT chest as well, shows left upper lobe airspace opacification, either due to focal atelectasis or pneumonia, cardiomegaly, multiple calcifications of the left breast. Kidney ultrasound, 9.9 and 10 cm kidneys with renal cortical thinning. Chest x-ray noted, improved aeration lung bases compared to prior x-ray. The patient currently lying supine. She is poorly responsive to mechanical stimuli, unresponsive to verbal stimuli. Does not appear to be in any respiratory distress. No fever, diarrhea noted. ALLERGIES: NO APPARENT DRUG ALLERGIES. CURRENT MEDICATIONS: The patient is on ondansetron, received some naloxone earlier, Pepcid 20 IV b.i.d., Tylenol p.r.n., received one time dose of vancomycin, received normal saline 2 L bolus apparently in the ER, currently receiving normal saline 75 mL an hour, which I am going to stop. Azithromycin is started, cefepime 2 g were given. Currently on meropenem 500 IV q.12. SOCIAL HISTORY: The patient is , has a supportive . FAMILY HISTORY: Significant for diabetes. PHYSICAL EXAMINATION: GENERAL: The patient is lying supine as described above. VITAL SIGNS: Blood pressure is 104/43, pulse rate 70, afebrile, oxygen saturation 100% on 2 L nasal cannula. HEAD AND NECK: Cornea clear. Oral mucosa moist. Pupils small, unable to get any reaction. Neck veins not distended. LUNGS/CHEST: Breath sounds relatively clear. HEART: S1 and S2 audible. ABDOMEN: Otherwise soft and nontender. No apparent visceromegaly. EXTREMITIES: Lower extremity, no edema. Left upper extremity, AV graft noted. IMPRESSION AND PLAN: Altered mental status, COVID test negative. Started on empiric antibiotics. Potassium 4.9. Underlying end-stage renal disease. Blood sugars noted. No significant acid-base disturbance. Serum bicarbonate 25 with an anion gap 20. Calcium of 8.1. Lactic acid was 2.2, down to 1.9. 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 Unable to get MRI because of pacemaker. Troponin I noted. Dialysis arranged. Discussed with RN. See orders. MD CT Mora/SHELLEY /[id number]
[2019-06-29] MEDS ORDERED: SODIUM CHLORIDE 0.9% 250ML 250 ML ONE (20:24)
[2019-06-29] MEDS: AZITHROMYCIN 250MG/NS 100 ML 100 ML IV SCH (23:45)
[2019-06-30] VITALS (12 sets, daily range): BP systolic 81–127; BP diastolic 48–59
[2019-06-30] MEDS: INSULIN LISPRO 100 UNIT/1 ML 3ML VIAL SQ SCH ×4 (07:30→21:00)
[2019-06-30 08:15] LABS: ALBUMIN 2.5 g/dL (3.5-5.0); ALBUMIN/GLOBULIN RATIO 0.6 (0.8-2.0); CALCIUM 9.1 mg/dL (8.4-10.2); CREATININE, SERUM 5.15 mg/dL (0.57-1.11); PHOSPHORUS 5.4 MG/DL (2.3-4.7)
[2019-06-30 08:24] LABS: BASOPHILS % 0.4 % (0.0-1.0); EOSINOPHILS # (AUTO) 0.1 (0.0-0.4); EOSINOPHILS % 0.8 % (0.0-6.0); HEMATOCRIT 30.4 % (34.2-44.1); HEMOGLOBIN 9.7 g/dL (12.0-16.0); LYMPHOCYTES % 13.7 % (18.0-39.1); MEAN CORPUSCULAR HEMOGLOBIN 36.1 pg (28-32); MEAN CORPUSCULAR HGB CONC 31.9 g/dL (31-35); MONOCYTES # (AUTO) 1.1 (0.2-0.8); MONOCYTES % 14.9 % (4.4-11.3); NEUTROPHILS # (AUTO) 5.3 (2.1-6.9); NEUTROPHILS % 69.7 % (38.7-80.0); PLATELET COUNT 113 x10e3/uL (140-360); RED BLOOD COUNT 2.69 x10e6/uL (3.6-5.1); RED CELL DISTRIBUTION WIDTH 16.8 % (11.7-14.4)
--- NOTE | 2019-06-30 09:34 | Diagnostic Imaging Report ---
X-ray chest AP portable Comparison: 06/29/2019 Clinical history: Fever Findings: Life support lines and tubes unchanged. Left shoulder region Angiocath has been removed. No change in cardiomediastinal findings. Possibly slight improvement in the aeration of the left lower lung zone. The lung markings are crowded because of the poor respiratory effort overall there is no new focal consolidation or infiltrate. No pleural effusion or pneumothorax. Impression: No significant change. Signed by: Sandor Austin MD on 06/30/2019 9:31 AM
[2019-06-30 11:25] LABS: PLATELET ESTIMATE SLIGHTLY DECREASED; PLATELET MORPHOLOGY COMMENT NORMAL
[2019-06-30 11:26] LABS: RBC MORPHOLOGY COMMENT NORMAL
[2019-06-30] MEDS: FAMOTIDINE 20 MG/2 ML VIAL IV SCH ×2 (12:34→19:19)
[2019-06-30] MEDS: MEROPENEM 500MG 500 MG in SODIUM CHLORIDE 0.9% 50ML 50 ML IV SCH (12:34)
--- NOTE | 2019-06-30 16:00 | NUR ---
WOUND CARE SCREENING CONSULT FOR 68 YO FEMALE WITH HX OF AMS. STEPHEN SCALE 12 ON STRICT PUP STATUS AND INTERVENTIONS LABS: WBC- 7.60 HGB- 9.7 GLUCOSE 90 MICRO: BLOOD CULTURE PENDING; URINE CULTUE NO GROWTH. SKIN ASSESSMENT COMPLETE, SKIN IS DRY AND INTACT. NO WOUND CARE NEEDED AT THIS TIME. RECOMMENDATIONS: NURSING TO MAINTAIN ALTERNATING PRESSURE MATTRESS. NURSING TO CONTINUE TO MONITOR PATIENT AND KEEP SKIN CLEAN AND FREE FROM LOOSE STOOL OR IRRITATING MOISTURE AND CONTINUE TO FOLLOW STRICT PUP INTERVENTION DAILY. NURSING TO CONTINUE REPOSITION PT SIDE TO SIDE EVERY TWO HOURS. NURSING TO CONTINUE TO OFFLOAD FEET AND HEELS AT ALL TIMES WITH PILLOW SUSPENSION WHEN IN BED. NURSING TO CONTINUE TO ASSIST PT NUTRITIONAL INTAKE TO ENSURE PROPER REQUIREMENTS FOR HEALING. NURSING TO CONSULT WOUND CARE NEEDED. Addendum: 06/30/19 at 1601 by Mel Hooks RN Amended: Links added.
[2019-06-30] MEDS ORDERED: VANCOMYCIN 500MG/NS 0.9% 100ML 100 ML IV SCH (17:00)
[2019-06-30] MEDS: WARFARIN SOD 1 MG TAB PO SCH (17:00)
--- NOTE | 2019-06-30 17:08 | Progress Note ---
DATE: SUBJECTIVE: Ms. Christine remains in intensive care unit. The patient is noncommunicative. PHYSICAL EXAMINATION: GENERAL: She is noncommunicative. VITAL SIGNS: Stable, afebrile. T-max 100.1. HEENT: She is not icteric. NECK: Supple. CHEST: Few crackles bilateral. COR: S1 and S2. No S3, S4, or murmurs. ABDOMEN: Soft. LABORATORY STUDIES: Blood cultures showing Staphylococcus aureus. White count is 7.6 with a hemoglobin 9.7. Sodium 140 and potassium 4.0. IMPRESSION: 1. Sepsis on admission, Staph aureus. Continue vancomycin. Discontinue meropenem. Discontinue azithromycin. Concern about line infection. We will discuss with Nephrology. We will modify after availability of the sensitivity on the bacteria. 2. End-stage renal disease. Further recommendations to follow. MD JEANETTE Myers/SHELLEY /[id number]
[2019-06-30] MEDS: ARTIFICIAL TEARS (OPTH) 15 ML BTL OD SCH ×3 (18:00→21:00)
--- NOTE | 2019-06-30 19:30 | NUR ---
Received patient hemodynamically stable asleep but easy to arouse, no complaints raised
[2019-06-30] MEDS: NOREPINEPHRINE 8 MG/D5W 250 ML 8 MG in DEXTROSE 5% 250ML 0 ML IV SCH (23:30)
[2019-07-01] VITALS (17 sets, daily range): BP systolic 79–135; BP diastolic 46–81
[2019-07-01 05:31] LABS: BASOPHILS % 0.3 % (0.0-1.0); EOSINOPHILS # (AUTO) 0.1 (0.0-0.4); EOSINOPHILS % 0.9 % (0.0-6.0); HEMATOCRIT 29.3 % (34.2-44.1); HEMOGLOBIN 9.5 g/dL (12.0-16.0); LYMPHOCYTES # (AUTO) 1.1 (1.0-3.2); MEAN CORPUSCULAR HEMOGLOBIN 35.7 pg (28-32); MEAN CORPUSCULAR HGB CONC 32.4 g/dL (31-35); MEAN CORPUSCULAR VOLUME 110.2 fL (81-99); MONOCYTES # (AUTO) 1.2 (0.2-0.8); MONOCYTES % 17.9 % (4.4-11.3); NEUTROPHILS # (AUTO) 4.2 (2.1-6.9); NEUTROPHILS % 63.6 % (38.7-80.0); PLATELET COUNT 98 x10e3/uL (140-360); RED BLOOD COUNT 2.66 x10e6/uL (3.6-5.1); RED CELL DISTRIBUTION WIDTH 16.3 % (11.7-14.4)
[2019-07-01 05:49] LABS: INR 1.05; PROTHROMBIN TIME 14.4 seconds (11.9-14.5)
[2019-07-01 05:56] LABS: ANION GAP 20.1 mmol/L (8-16); CALCIUM 9.1 mg/dL (8.4-10.2); CREATININE, SERUM 7.09 mg/dL (0.57-1.11); POTASSIUM 4.1 mmol/L (3.5-5.1)
--- NOTE | 2019-07-01 06:18 | NUR ---
Remains stable, due for dialysis today
[2019-07-01] MEDS: INSULIN LISPRO 100 UNIT/1 ML 3ML VIAL SQ SCH ×4 (07:30→21:26)
--- NOTE | 2019-07-01 10:26 | Progress Note ---
DATE: 07/01/2019 Nephrology Followup Note SUBJECTIVE: The patient did not appear to be in any distress and denied any nausea, vomiting, chest pain, or shortness of breath. OBJECTIVE: VITAL SIGNS: Blood pressure 92/48, respirations 21, heart rate 84. CHEST: Revealed fair air entry with occasional crackles. HEART: S1, S2. ABDOMEN: Soft. Bowel sounds are positive. EXTREMITIES: Trace edema. HEEL BRUSHER: She was awake and alert. LABORATORY DATA: White cell count 6.58, hemoglobin 9.5, hematocrit 29.3, platelets 13639, all relatively stable. Sodium 140, potassium 4.5, chloride 99. CO2 of 25. BUN 37, creatinine 7.09, calcium 9.1. Chest x-ray did not show any acute pathology from yesterday. IMPRESSION: 1. End stage renal disease, on hemodialysis on a Wednesday, , Wednesday schedule with no significant volume overload or hyperkalemia. 2. Anemia, secondary to end stage renal disease. 3. Sepsis. PLAN: Hemodialysis later today. Continue present treatment. Further recommendations to follow. Bernardo Cardona MD SA/SHELLEY /[id number]
[2019-07-01] MEDS: FAMOTIDINE 20 MG/2 ML VIAL IV SCH ×2 (10:46→18:09)
[2019-07-01] MEDS: ARTIFICIAL TEARS (OPTH) 15 ML BTL OD SCH ×4 (10:46→21:26)
--- NOTE | 2019-07-01 15:27 | Progress Note ---
DATE: SUBJECTIVE: Ms. Christine remains noncommunicative. Vitals stable. She is growing MRSA in blood. Her white count 6.8, hemoglobin 9.5. Sodium 140, potassium 4.1, . She remains on vancomycin, Coumadin. PHYSICAL EXAMINATION: GENERAL: She is noncommunicative. VITAL SIGNS: Stable, currently afebrile. HEENT: NECK: Supple. CHEST: Clear COR: No murmur. ABDOMEN: Soft. She did have an echocardiogram. We are still awaiting the final report. IMPRESSION: MRSA bacteremia present on admission. End-stage renal disease on hemodialysis. Continue vancomycin. Await echocardiogram. Recheck blood cultures. Recheck CBC. Further recommendations to follow. MD JEANETTE Myers/SHELLEY /[id number]
[2019-07-01] MEDS: WARFARIN SOD 1 MG TAB PO SCH (17:00)
--- NOTE | 2019-07-01 20:00 | NUR ---
Patient transferred to [facility] handed over to Janet. Vitals stable
[2019-07-01] MEDS: ACETAMINOPHEN 325 MG TAB PO PRN (20:50)
[2019-07-01] MEDS: NOREPINEPHRINE 8 MG/D5W 250 ML 8 MG in DEXTROSE 5% 250ML 0 ML IV SCH (23:30)
[2019-07-02] VITALS (8 sets, daily range): BP systolic 85–127; BP diastolic 51–95
[2019-07-02] MEDS: INSULIN LISPRO 100 UNIT/1 ML 3ML VIAL SQ SCH ×4 (07:30→21:56)
[2019-07-02] MEDS: FAMOTIDINE 20 MG/2 ML VIAL IV SCH ×2 (09:16→18:19)
[2019-07-02] MEDS: ARTIFICIAL TEARS (OPTH) 15 ML BTL OD SCH ×4 (09:16→21:09)
--- NOTE | 2019-07-02 18:14 | NUR ---
Dr. Ayala returned call for blood culture results, received orders to give 1 gram of vancomycin now.
[2019-07-02] MEDS: WARFARIN SOD 1 MG TAB PO SCH (18:19)
[2019-07-02] MEDS ORDERED: VANCOMYCIN 1GM/NS 250 ML 250 ML IV ONE (18:45)
[2019-07-02] MEDS: ACETAMINOPHEN 325 MG TAB PO PRN (21:30)
[2019-07-02] MEDS: NOREPINEPHRINE 8 MG/D5W 250 ML 8 MG in DEXTROSE 5% 250ML 0 ML IV SCH (23:30)
[2019-07-03] VITALS (11 sets, daily range): BP systolic 92–122; BP diastolic 49–58
[2019-07-03] MEDS: ACETAMINOPHEN 325 MG TAB PO PRN (05:22)
--- NOTE | 2019-07-03 07:00 | NUR ---
BEDSIDE SHIFT REPORT FROM NIGHT RN. PT DENIES NEEDS AT THIS TIME.
[2019-07-03] MEDS: INSULIN LISPRO 100 UNIT/1 ML 3ML VIAL SQ SCH ×4 (07:30→20:42)
[2019-07-03] MEDS: FAMOTIDINE 20 MG/2 ML VIAL IV SCH ×2 (07:56→17:37)
[2019-07-03] MEDS: ARTIFICIAL TEARS (OPTH) 15 ML BTL OD SCH ×4 (07:56→21:12)
--- NOTE | 2019-07-03 09:43 | Progress Note ---
DATE: Infectious Disease SUBJECTIVE: The patient is seen and evaluated. Currently, comfortable in bed. REVIEW OF SYSTEMS: No nausea, vomiting, fever, chills, chest pain, shortness of breath, headache, dysuria, or polyuria. Appetite is good and has no diarrhea. No sweats or cough. OBJECTIVE: VITAL SIGNS: Temperature 98.2, had a T-max of 100.4 yesterday at 8:10 p.m. at night, afebrile since then, pulse 82, respirations 16, blood pressure 115/52. MEDICATIONS: Medication list reviewed. As far as Infectious Disease point of view, patient is on vancomycin 500 mg with each hemodialysis. LABORATORY STUDIES: White count of 6.58, hemoglobin 9.5, platelet 98. MICROBIOLOGY: Blood culture, MRSA on 06/28/2019, recheck blood culture on 07/01/2019, gram stain is positive for gram-positive cocci with the culture negative, recheck blood culture from 07/02/2019 is pending. RADIOLOGY STUDIES: No new radiology studies available. ASSESSMENT AND PLAN: 1. This is a 68-year-old pleasant Latin-English female with MRSA bacteremia. Recheck blood culture on 07/01/2019 is positive. Recheck blood culture from 07/02/2019 is still pending. Pending echo result, we continue with vancomycin at this point. We get a vancomycin level, she is only on 500 mg IV piggyback after each dialysis. Other medical conditions includin. End-stage renal disease. 3. General pain which seems to be resolved. 4. Anemia. 5. Debility. 6. Obesity. Further management of this patient is based on daily finding on laboratory and physical examination. Discussed with Dr. Ayala and discussed with the nurse in details. MD JEANETTE Myers/SHELLEY /[id number]
--- NOTE | 2019-07-03 10:02 | NUR ---
TELE CALLED WITH PT TACHY. CHECKED PT AND LEADS, REPOSITIONED AND PT FOUND WITH HR IN THE 80'S.
--- NOTE | 2019-07-03 16:40 | NUR ---
Nutrition Screen Note RD Recommendation for Physician: -Continue renal/diabetic diet Plan of Care: RD following, monitoring for tolerance and adequacy Nutrition reason for involvement:. Length of stay Primary Diagnose(s): AMS, ESRD, UTI PMH: ESRD, DM, HTN, CAD, HLD Ht: 65 in Wt: 181.56 lb BMI: 30.2 kg/m2 IBW:[address] Assessment: (07/03/19) Chart reviewed. Labs and meds reviewed. Pt is a 68 year old male admitted with AMS, ESRD, and UTI. Unable to speak to pt since he was sleeping at time of visit. It is recorded that pt consumed 75% of meals today and 25-100% of meals yesterday. Per weight history, pt weighed 182 lbs in January 2019; therefore, no weight loss is evident. Current Diet: Renal/diabetic diet Malnutrition Evaluation (07/03/19) The patient does not meet criteria for a specified degree of malnutrition at this time. Will re-evaluate at follow-up as appropriate. Diet Education Needs Assessment: RD is available for diet education as needed Nutrition Care Level: low Signed: Joy Yuan, RD, LD
[2019-07-03] MEDS: WARFARIN SOD 1 MG TAB PO SCH (17:38)
[2019-07-03] MEDS: NOREPINEPHRINE 8 MG/D5W 250 ML 8 MG in DEXTROSE 5% 250ML 0 ML IV SCH (23:30)
[2019-07-04] VITALS (7 sets, daily range): BP systolic 94–126; BP diastolic 46–65
[2019-07-04] MEDS: INSULIN LISPRO 100 UNIT/1 ML 3ML VIAL SQ SCH ×4 (07:30→20:23)
--- NOTE | 2019-07-04 07:48 | NUR ---
PATIENT RECEIVED FROM [facility] PER STRETCHER. ALERT AND VERBALLY RESPONSIVE. FISTULA TO RIGHT ARM WITH DRESSING INTACT. PATIENT IS ON DIALYSIS TUE/KUSHAL/SAT. DENIED PAIN AT THIS TIME. BED IN LOWER POSITION AND LOCKED. CALL LIGHT AT REACH.
--- NOTE | 2019-07-04 07:55 | NUR ---
patient transferred to floor. report called to MEGHANA. vitals stable with no distres at time of transfer.
[2019-07-04] MEDS: FAMOTIDINE 20 MG/2 ML VIAL IV SCH ×2 (09:00→18:20)
[2019-07-04 09:07] LABS: BASOPHILS % 0.4 % (0.0-1.0); EOSINOPHILS # (AUTO) 0.2 (0.0-0.4); EOSINOPHILS % 2.9 % (0.0-6.0); HEMOGLOBIN 8.7 g/dL (12.0-16.0); LYMPHOCYTES % 26.6 % (18.0-39.1); MEAN CORPUSCULAR HGB CONC 33.5 g/dL (31-35); MEAN CORPUSCULAR VOLUME 107.4 fL (81-99); MONOCYTES # (AUTO) 0.6 (0.2-0.8); MONOCYTES % 8.5 % (4.4-11.3); NEUTROPHILS # (AUTO) 4.4 (2.1-6.9); NEUTROPHILS % 59.7 % (38.7-80.0); PLATELET COUNT 165 x10e3/uL (140-360); RED BLOOD COUNT 2.42 x10e6/uL (3.6-5.1); RED CELL DISTRIBUTION WIDTH 16.3 % (11.7-14.4)
[2019-07-04] MEDS: ARTIFICIAL TEARS (OPTH) 15 ML BTL OD SCH ×4 (09:16→20:23)
[2019-07-04 09:32] LABS: ANION GAP 16.7 mmol/L (8-16); CALCIUM 8.4 mg/dL (8.4-10.2); CREATININE, SERUM 7.83 mg/dL (0.57-1.11); POTASSIUM 3.7 mmol/L (3.5-5.1)
--- NOTE | 2019-07-04 11:13 | Progress Note ---
DATE: SUBJECTIVE: The patient is seen and evaluated. Available labs and notes reviewed. Discussed with staff. Uneventful night. REVIEW OF SYSTEMS: The patient is currently getting dialysis and kind of sleepy, but no obvious acute finding and no complaints from dialysis nurse. PHYSICAL EXAMINATION: VITAL SIGNS: Temperature is 98.2, pulse is 78, respiration 19, blood pressure 104/52, afebrile past 24 hours. GENERAL: Comfortable in bed, in no acute distress, dialysis in room. CV: S1, S2. CHEST: Equal expansion. Clear to auscultation. No acute distress. ABDOMEN: Soft, nontender. No distention. The patient is obese. HEENT: Moist. No pallor. No JVD. EXTREMITIES: Weak. No acute finding. MEDICATIONS: Medication list reviewed. As far as Infectious Disease point of view, the patient is on vancomycin every dialysis, which is Wednesday, , Wednesday vancomycin dose was increased to 750 mg IV q. HD yesterday. LABORATORY STUDIES: White count of 7.32, hemoglobin is 8.7, platelet 165. Sodium 137, potassium 3.7; creatinine, the patient is on dialysis. Serology; no new serology studies. MICROBIOLOGY: Blood culture 07/01 is negative so far 48 hours. Blood culture from 07/01/2019 and 06/28/2019 were positive for MRSA. RADIOLOGY STUDIES: No new radiology studies available. ASSESSMENT AND PLAN: 1. Methicillin-resistant Staphylococcus aureus bacteremia. Please see above for blood culture results. 2. End-stage renal disease, on dialysis. 3. Anemia. 4. Obesity. 5. General pain, which seems to be resolved. The patient has AV graft. We will discuss with Dr. Jamie vyas, spoke with Dr. Serrano. We will evaluate if AV graft needs to come out or not. Please refer to chart for more information. Thank you for this dictation. Dictated by Landry Gutierrez PA-C (Al) Darren Ayala MD /MODL /[id number]
--- NOTE | 2019-07-04 11:30 | NUR ---
BED SIDE HEMODIALYSIS TREATMENT IN PROGRESS. BED IN LOWER POSITION, CALL LIGHT AT REACH.
--- NOTE | 2019-07-04 12:24 | NUR ---
ST Note: Attempted f/u for diet tolerance. Pt on HD. Will return later time permitting.
[2019-07-04] MEDS ORDERED: ONDANSETRON HCL 4 MG ORAL DISINTEGRATING TAB PO PRN (12:30)
--- NOTE | 2019-07-04 14:32 | NUR ---
BED SIDE HEMODIALYSIS COMPLETED. 2.8 LITERS REMVED PER DIALYSIS NURSE. B/P 125/64 AND HR 75. PATIENT IN BED RESTING WITH NO S/S OF DISTRESS.
--- NOTE | 2019-07-04 15:43 | NUR ---
PATIENT EXERCISING IN ROOM WITH PHYSICAL THERAPY. WILL CONTINUE TO MONITOR.
[2019-07-04 17:28] LABS: INR 1.2
[2019-07-04] MEDS ORDERED: SODIUM CHLORIDE 0.9% 250ML 250 ML ONE (18:01)
[2019-07-04] MEDS: VANCOMYCIN 750MG/NS 150ML IVPB 150 ML IV SCH (18:21)
[2019-07-04] MEDS: WARFARIN SOD 1 MG TAB PO SCH (18:21)
--- NOTE | 2019-07-04 19:00 | NUR ---
Patient visited in room during nursing rounds. Patient alert and oriented x2. Pt is sinhala speaking only. On bedrest at this time but able to turn in bed by self. Pt is a dialysis pt with HERIBERTO AV graft on scheduled during , and Sat. TEDs on BLE. Call cooley within reach. Bed alarm active.
--- NOTE | 2019-07-04 19:01 | NUR ---
Pt on Contact Isolation for MRSA of blood
[2019-07-04] MEDS: NOREPINEPHRINE 8 MG/D5W 250 ML 8 MG in DEXTROSE 5% 250ML 0 ML IV SCH (19:27)
--- NOTE | 2019-07-04 19:35 | NUR ---
Spoke with Dr. Bolden (via phone) and asked if pt is scheduled for surgery and if consent needed to be done tonight. MD aware and said he has not seen pt and plan to see pt first thing in the morning (07/05/19) and then decide if he will do surgery or not. Plan to keep pt NPO at midnight tonight.
[2019-07-05] VITALS (9 sets, daily range): BP systolic 88–127; BP diastolic 49–59
[2019-07-05 05:37] LABS: INR 1.3; PROTHROMBIN TIME 17.1 seconds (11.9-14.5)
[2019-07-05 05:50] LABS: ANION GAP 19.7 mmol/L (8-16); CALCIUM 8.9 mg/dL (8.4-10.2); CREATININE, SERUM 5.03 mg/dL (0.57-1.11); POTASSIUM 3.7 mmol/L (3.5-5.1)
--- NOTE | 2019-07-05 06:52 | Consultation ---
DATE OF CONSULTATION: 07/05/2019 HISTORY OF PRESENT ILLNESS: The patient is a 68-year-old female with end-stage renal disease, diabetes, who was admitted to the hospital with lethargy and signs of sepsis. She has been found to have purulent drainage from the area around her right upper arm AV graft. The patient denies any pain in this area. She denies any symptoms at this time. PAST MEDICAL HISTORY: Significant for end-stage renal disease, diabetes, hypertension, coronary artery disease, hyperlipidemia. She has had previous coronary artery bypass, pacemaker, and right upper arm AV graft. ALLERGIES: SHE HAS NO KNOWN ALLERGIES. MEDICATIONS: Listed in the chart. FAMILY HISTORY: Noncontributory. SOCIAL HISTORY: The patient is a resident of custodial. REVIEW OF SYSTEMS: Cannot be obtained. PHYSICAL EXAMINATION: GENERAL: The patient is awake, does not really answer questions. VITAL SIGNS: At this time reveal low-grade fever. Heart rate is normal. Blood pressure is normal. HEENT: Sclerae are not icteric. NECK: Had no masses. LUNGS: Equal breath sounds are clear bilaterally. CARDIAC: Regular rate and rhythm. ABDOMEN: Soft. There was no tenderness. No mass. EXTREMITIES: On the right upper extremity, there is erythema with some purulent drainage over the arteriovenous graft. There is a bruit in the graft. LABORATORY DATA: White blood cell count at this time is normal with normal differential, hemoglobin 8.7, hematocrit 26. Chemistries reveal normal electrolytes, elevated BUN and creatinine consistent with her renal failure. ASSESSMENT: A 68-year-old female has abscess in the right upper arm over the area of the arteriovenous graft. PLAN: Drainage to be done in the operating room today. Hopefully, the graft was not involved and can be salvaged. Procedure was explained to the patient. Thank you for asking me to see Ms. Christine. MD RAYSHAWN Ryan/SHELLEY /[id number]
[2019-07-05] MEDS: INSULIN LISPRO 100 UNIT/1 ML 3ML VIAL SQ SCH ×4 (07:30→21:00)
[2019-07-05] MEDS: ARTIFICIAL TEARS (OPTH) 15 ML BTL OD SCH ×4 (08:30→21:00)
[2019-07-05] MEDS: FAMOTIDINE 20 MG/2 ML VIAL IV SCH ×2 (08:30→17:00)
--- NOTE | 2019-07-05 09:46 | Diagnostic Imaging Report ---
EXAM: CT Abdomen and Pelvis WITHOUT intravenous contrast INDICATION: Altered mental status COMPARISON: CT abdomen and pelvis of 05/27/2018 TECHNIQUE: Abdomen and pelvis were scanned utilizing a multidetector helical scanner from the lung base to the pubic symphysis without administration of IV contrast. Coronal and sagittal reformations were obtained. IV CONTRAST: None ORAL CONTRAST: None COMPLICATIONS: None RADIATION DOSE: Total DLP: 501 mGy*cm Dose modulation, iterative reconstruction, and/or weight based adjustment of the mA/kV was utilized to reduce the radiation dose to as low as reasonably achievable. FINDINGS: LOWER THORAX: Normal. HEPATOBILIARY: No focal liver lesion. Status post cholecystectomy. SPLEEN: No splenomegaly. PANCREAS: No focal masses or ductal dilatation. ADRENALS: No adrenal nodules. KIDNEYS/URETERS: Severe cortical atrophy of both kidneys. 1.6 cm right upper pole renal cyst. No hydronephrosis. PELVIC ORGANS/BLADDER: Unremarkable. PERITONEUM / RETROPERITONEUM: No free air or fluid. LYMPH NODES: No lymphadenopathy. VESSELS: Diffuse athetotic calcifications of the nonaneurysmal abdominal aorta and major branches. GI TRACT: No abnormal bowel thickening. No bowel obstruction. Normal appendix. BONES AND SOFT TISSUES: No acute osseous injury. No suspicious lytic or blastic lesions. IMPRESSION: No acute findings in the abdomen or pelvis. Specifically, no intra-abdominal abscess. Signed by: Libertad Mancuso MD on 07/05/2019 9:42 AM
--- NOTE | 2019-07-05 11:03 | Progress Note ---
DATE: SUBJECTIVE: The patient is seen and evaluated. Available labs and notes reviewed. REVIEW OF SYSTEMS: Feels better. No nausea, vomiting, fever, chills, chest pain, shortness of breath, diarrhea, rash, or cough. PHYSICAL EXAMINATION: VITAL SIGNS: Temperature 98.8, pulse is 68, respiration 20, and blood pressure 122/58. GENERAL: Alert and oriented, very pleasant, comfortable in bed, in no acute distress. CV: S1 and S2. CHEST: Equal expansion. Clear to auscultation. No acute distress. ABDOMEN: Soft, obese, and nontender. HEENT: Moist. No pallor. No JVD. EXTREMITIES: The patient does have AV graft for dialysis. MEDICATIONS: Medication list reviewed and as far as Infectious Disease point of view, the patient is on vancomycin IV with dialysis. LABORATORY STUDIES: No new CBC from today. BMP today showed sodium 137, potassium 3.7 with a creatinine level of 5.03. The patient is on dialysis. MICROBIOLOGY: Recheck blood culture on 07/02/2019, negative 72 hours with recheck blood culture on 07/04/2019 is pending. RADIOLOGY STUDIES: CT of abdomen and pelvis showed no acute finding in abdomen or pelvis. No intra-abdominal abscess. ASSESSMENT AND PLAN: 1. Methicillin-resistant Staphylococcus aureus bacteremia. Recheck blood culture negative x1, rechecking a blood culture again, which is pending. 2. End-stage renal disease. 3. General pain. 4. Anemia. 5. Obesity. 6. Diabetes. 7. Continue vancomycin IV. General Surgery noted pending aspiration of the right upper extremity abscess and a possible revision of AV graft. We will follow up with the cultures. Monitor the patient clinically. Discussed with Dr. Ayala in details. Please refer to chart for more information. Dictated by Landry Gutierrez PA-C (Al) Darren Ayala MD /MODL /[id number]
--- NOTE | 2019-07-05 11:31 | NUR ---
ST Note: Attempted to see pt for diet tolerance. Pt NPO for procedure. Will f/u later time permitting.
--- NOTE | 2019-07-05 11:48 | NUR ---
INPATIENT WOUNDCARE CONSULT MADE FOR ORDER CLARIFICATION FOR TREATMENT OF LOWER EXTREMITY AND RIGHT UNSTAGEABLE SACROGLUTEAL ULCERATION MD ORDERS ARE CURRENT AND FOUND IN PATIENT MEDICAL RECORD Addendum: 07/05/19 at 1155 by Gerhard Contreras RN Amended: Links added. Addendum: 07/05/19 at 1200 by Gerhard Contreras RN MISTAKEN ENTRY FOR ABOVE NOTE
--- NOTE | 2019-07-05 13:15 | NUR ---
Spoke to MIKE Davis for Dr Ayala. Notified him of positive blood blood cultures that were collected on 07/04/2019 Addendum: 07/05/19 at 1443 by Miriam Deng RN No new orders were received.
[2019-07-05] MEDS ORDERED: BUPIVACAINE HCL 0.5% INJ 30 ML VIAL INJ ONE (13:31)
[2019-07-05] MEDS ORDERED: LIDOCAINE HCL 1% LOCAL INJ 20 ML VIAL ONE (13:31)
[2019-07-05] MEDS ORDERED: HEPARIN SOD (PORCINE) 5,000 UNIT/ML VIAL ONE (13:40)
[2019-07-05] MEDS ORDERED: HEPARIN SOD (PORCINE) 1000 UNIT/ML 30ML ONE (13:40)
[2019-07-05] MEDS ORDERED: SODIUM CHLORIDE 0.9% 100 ML ONE (13:40)
--- NOTE | 2019-07-05 16:19 | Operative Report ---
DATE OF PROCEDURE: 07/05/2019 SURGEON: Hayden Bolden MD PREOPERATIVE DIAGNOSIS: Abscess, right upper arm. POSTOPERATIVE DIAGNOSIS: Abscess, right upper arm with extension to arteriovenous graft. PROCEDURE: Incision and drainage and excisional debridement of right upper arm abscess, skin and subcutaneous tissue. PULP MAKER: None. ANESTHESIA: General. INDICATIONS AND FINDINGS: The patient is a 68-year-old female, who has a swelling and drainage from the right upper arm area, over the area of her abscess of arteriovenous graft. At Surgery, there was an abscess containing purulent fluid, which extended down to the graft. The graft being involved with infection for distance of approximately 2 cm. The graft otherwise, appeared healthy and the abscess site were debrided, so it could be closed loosely. TECHNIQUE: After adequate general anesthesia, the patient in supine position, and the right arm was prepped and draped in a sterile fashion with Betadine solution. Three were three separate draining sinuses of purulent fluid, area where the size was probed with a hemostat. There was a space beneath these and this incision was made into the space, which did contain some purulent fluid. Sample taken for culture and sensitivity. The wound was opened completely. There was some infected skin and subcutaneous tissue, which was excised back to healthy tissue. The graft was involved with the area of infection, but the graft beyond its area was well incorporated into the surrounding tissues. The wound was irrigated with large volume of saline. Hemostasis was achieved with electrocautery. The skin edges were easily closed over the wound and was started to close the wound loosely, this was done with two interrupted sutures of 2-0 nylon. A sterile dressing was then applied. The patient tolerated the procedure well. Estimated blood loss was less than 5 mL. There were no complications. All counts were correct. The patient was taken to the recovery room in satisfactory condition. Hayden Bolden MD DWG/MODL /[id number]
[2019-07-05] MEDS: WARFARIN SOD 1 MG TAB PO SCH (17:00)
[2019-07-05] MEDS ORDERED: SEVOFLURANE INHAL SOLN 250 ML PEN BTL ONE (18:30)
[2019-07-05] MEDS ORDERED: LIDOCAINE HCL 2% LOCAL INJ 5 ML SDV VIAL INJ ONE (18:30)
[2019-07-05] MEDS ORDERED: ONDANSETRON HCL INJ 2MG/ML 2ML 2 MG/ML VIAL ONE (18:30)
[2019-07-05] MEDS ORDERED: GLYCOPYRROLATE INJ 0.2 MG/ML VIAL ONE (18:30)
[2019-07-05] MEDS ORDERED: NEOSTIGMINE 1 MG/ML 10ML VIAL ONE (18:30)
[2019-07-05] MEDS ORDERED: ROCURONIUM BROMIDE 10 MG/ML 5ML VIAL IV ONE (18:30)
[2019-07-05] MEDS ORDERED: PROPOFOL IV EMULSION 10 MG/ML 20 ML VIAL ONE (18:30)
--- NOTE | 2019-07-05 19:00 | NUR ---
RECEIVED PATIENT IN BEDSIDE SHIFT REPORT. PATIENT RESTING IN BED WITH EYES CLOSED, BREATHING EVEN AND NON-LABORED. DRESSING TO R UA C/D/I S/P I&D. L UA 22G IV ASYMPTOMATIC, INTACT, AND PATENT. NO S&S OF DISTRESS NOTED. BED LOCKED IN LOWEST POSITION, SIDE RAILS UPX2, CALL LIGHT IN REACH.
[2019-07-05] MEDS ORDERED: FENTANYL CITRATE/PF 100MCG/2 ML INJ ONE (19:01)
[2019-07-06] VITALS (9 sets, daily range): BP systolic 87–168; BP diastolic 47–66
[2019-07-06] MEDS: INSULIN LISPRO 100 UNIT/1 ML 3ML VIAL SQ SCH ×4 (07:30→20:03)
[2019-07-06] MEDS: ARTIFICIAL TEARS (OPTH) 15 ML BTL OD SCH ×4 (09:00→21:00)
[2019-07-06] MEDS: FAMOTIDINE 20 MG/2 ML VIAL IV SCH ×2 (09:30→16:39)
--- NOTE | 2019-07-06 11:29 | Progress Note ---
DATE: SUBJECTIVE: The patient is seen and evaluated. Available labs and notes reviewed and discussed with the nurse. REVIEW OF SYSTEMS: The patient is kind of sleepy. She speaks a few words. No acute distress. Discussed with the nurse. Uneventful night. PHYSICAL EXAMINATION: VITAL SIGNS: Temperature 98.5, pulse is 66, respiration 22, and blood pressure 111/48. GENERAL: Awake and alert, in no acute distress, kind of sleepy today. CV: S1 and S2. CHEST: Equal expansion. Clear to auscultation. No acute distress. ABDOMEN: Soft and nontender. The patient is obese. HEENT: Moist. No pallor. No JVD. EXTREMITIES: Right upper extremity with surgical site sutured up. No obvious active drainage. MEDICATIONS: This patient is on vancomycin IV 750 mg with each hemodialysis. LABORATORY STUDIES: No new CBC or BMP from today. Serology; no new serology. MICROBIOLOGY: Wound culture showed gram-positive cocci with identification and sensitivity pending. Blood culture, 07/03 is positive for MRSA. Recheck blood culture for today again. IMAGING: No new radiology studies available. ASSESSMENT AND PLAN: 1. Persistent methicillin-resistant Staphylococcus aureus bacteremia. 2. Status post I and D of right upper extremity small abscess. 3. End-stage renal disease. 4. Diabetes. 5. Anemia. 6. Obesity. 7. We will recheck blood culture. Follow with the wound culture from operating room. Continue with hemodialysis. Further management of this patient is based on daily findings on laboratory and physical examination. Discussed with Dr. Ayala in details. Please refer to chart for more information. Dictated by Landry Gutierrez PA-C (Al) Darren Ayala MD /MODL /[id number]
--- NOTE | 2019-07-06 11:54 | NUR ---
ST NOTE: Attempted to see pt for diet tolerance, just began dialysis. Will return at later time. HAndoff to JENNIFER Pineda
[2019-07-06] MEDS: VANCOMYCIN 750MG/NS 150ML IVPB 150 ML IV SCH (16:39)
--- NOTE | 2019-07-06 19:00 | NUR ---
RECEIVED PATIENT IN BEDSIDE SHIFT REPORT. PATIENT RESTING IN BED AT THIS TIME. NO PAIN NOTED. BED ALARM ACTIVE. NO S&S OF DISTRESS NOTED. BED LOCKED IN LOWEST POSITION, SIDE RAILS UPX2, CALL LIGHT IN REACH.
[2019-07-07] VITALS (9 sets, daily range): BP systolic 82–101; BP diastolic 33–75
--- NOTE | 2019-07-07 02:23 | NUR ---
PATIENT CONTINUES TO REMOVE DRESSING TO R UPPER ARM. CHANGED DRESSING AGAIN AND SECURED WITH TAPE. PATIENT VERBALIZED SHE WOULD LEAVE DRESSING ALONE. WILL CONTINUE TO MONITOR.
--- NOTE | 2019-07-07 07:00 | NUR ---
BEDSIDE SHIFT REPORT RECEIVED FROM THE DOCUMENT PHOTOGRAPHER RN. CALL LIGHT WITH IN EASY REACH. BED IS LOW AND LOCKED. SIDE RAILS X2. BED ALARM IS ON. PT DENIES NEEDS AT THIS TIME.
[2019-07-07] MEDS: INSULIN LISPRO 100 UNIT/1 ML 3ML VIAL SQ SCH ×4 (07:30→20:44)
--- NOTE | 2019-07-07 08:26 | NUR ---
ST NOTE: Attempted to follow up with diet tolerance, pt too fatigued to eat breakfast, will return at later time. Handoff to JENNIFER Vanegas
--- NOTE | 2019-07-07 08:30 | NUR ---
CALL RECEIVED FROM MICROBIOLOGY. REPORTED THE RESULT TO DR. RUSSELL.
[2019-07-07] MEDS: ARTIFICIAL TEARS (OPTH) 15 ML BTL OD SCH ×5 (09:00→20:44)
[2019-07-07] MEDS: FAMOTIDINE 20 MG/2 ML VIAL IV SCH ×2 (09:19→17:19)
--- NOTE | 2019-07-07 09:38 | Progress Note ---
DATE: SUBJECTIVE: The patient is seen with the staff in her room. Complaining of general pain pretty much everywhere. Otherwise, no nausea, vomiting, fever, chills, chest pain, shortness of breath. PHYSICAL EXAMINATION: VITAL SIGNS: Temperature 98.3 with a T-max of 99.6 past 48 hours, pulse is 80, respiration 19, blood pressure 89/67. GENERAL: Alert and oriented, no acute distress. CV: S1-S2. CHEST: Equal expansion. Clear to auscultation. No acute distress. ABDOMEN: Soft, nontender. No distention and obese. HEENT: Moist. No pallor. No JVD. EXTREMITIES: Right upper extremity surgical site dressed. MEDICATIONS: As far as Infectious Disease point of view, the patient is on vancomycin IV 750 mg with each hemodialysis. LABORATORY DATA: No new CBC or BMP from today. No new serology available. MICROBIOLOGY: Blood culture from 07/05, growth is detected with a gram-positive cocci on Gram stain on both sets, and one set is still pending. Again, blood culture on 07/05, one is positive and one is pending. RADIOLOGY STUDIES: CT of abdomen and pelvis was done on 07/03, showing no acute finding in abdomen or pelvis. Specifically, no intraabdominal abscess. ASSESSMENT AND PLAN: 1. Persistent gram-positive bacteremia/methicillin-resistant Staphylococcus aureus. 2. Status post I and D of right upper extremity small abscess without revision of the graft. 3. End-stage renal disease. 4. Diabetes. 5. Obesity. 6. Anemia. 7. General pain. 8. Blood culture still positive from 07/05. We will recheck blood culture again. Please refer to chart for more information. Discussed with Dr. Ayala in details. Dictated by Landry Gutierrez PA-C (Al) Darren Ayala MD /MODL /[id number]
[2019-07-07] MEDS ORDERED: APIXABAN 5 MG TABLET PO SCH (10:00)
[2019-07-07] MEDS: APIXAB 2.5 MG TABLET PO SCH ×2 (11:09→20:44)
[2019-07-07] MEDS ORDERED: FAMOTIDINE 20 MG TAB PO SCH (16:30)
--- NOTE | 2019-07-07 19:00 | NUR ---
BEDSIDE SHIFT REPORT GIVEN TO THE ANIME DESIGNER RN. PT DENIED FURTHER NEEDS.
[2019-07-07] MEDS: ACETAMINOPHEN 325 MG TAB PO PRN (20:44)
[2019-07-08] VITALS (10 sets, daily range): BP systolic 59–146; BP diastolic 29–124
[2019-07-08] MEDS: HYDROCODONE/APAP 5MG-325MG TAB PO PRN ×2 (01:22→21:41)
--- NOTE | 2019-07-08 07:00 | NUR ---
BEDSIDE SHIFT REPORT RECEIVED FROM THE DIESEL SERVICE JOURNEYMAN RN. . CALL LIGHT WITH IN EASY REACH. BED IS LOW AND LOCKED. SIDE RAILS X2. BED ALARM IS ON. PT DENIES NEEDS AT THIS TIME.
--- NOTE | 2019-07-08 07:15 | NUR ---
OFFAL SEPARATOR AT BEDSIDE.
[2019-07-08] MEDS: INSULIN LISPRO 100 UNIT/1 ML 3ML VIAL SQ SCH ×4 (07:30→21:00)
--- NOTE | 2019-07-08 07:50 | NUR ---
PAGED DR. CHRIS AND LEFT MESSAGE REGARDING THE MORNING VITALS BP 67/29. RECHECKED BP 59/39. PT IS ALERT. EATING BREAKFAST. NO DISTRESS NOTED. PT DENIES NEEDS AT THIS TIME.
--- NOTE | 2019-07-08 08:00 | NUR ---
NO DIALYSIS TODAY DUE TO LOW BP PER MANAGER EXPORT.
--- NOTE | 2019-07-08 08:15 | NUR ---
PT IS NON COMPLIANT WITH TELEMETRY AND DRESSING ON RIGHT HAND. KEEP REMOVING THE LEADS AND DRESSING ON THE RIGHT HAND.
--- NOTE | 2019-07-08 08:30 | NUR ---
LEFT UPPER AM IV REMOVED DUE TO LEAKING. TIP INTACT. DRESSING APPLIED. PT DENIED FURTHER NEEDS.
[2019-07-08] MEDS: APIXAB 2.5 MG TABLET PO SCH ×2 (08:34→21:40)
[2019-07-08] MEDS: FAMOTIDINE 20 MG/2 ML VIAL IV SCH ×3 (08:34→16:11)
[2019-07-08] MEDS: ARTIFICIAL TEARS (OPTH) 15 ML BTL OD SCH ×4 (08:34→21:40)
--- NOTE | 2019-07-08 09:00 | NUR ---
CALL RECEIVED FROM [facility]OLOGY.REPORTED THE RESULT TO GONSALO MACIAS
[2019-07-08] MEDS ORDERED: SODIUM CHLORIDE 0.9% 500ML 500 ML IV ONE (09:30)
--- NOTE | 2019-07-08 09:45 | NUR ---
PT IS HARD STICK AND MULTIPLE ATTEMPTS FOR AN IV ACCESS BY CAR DUMPER AND CHANGE HOUSE ATTENDANT'S. NEW IV AT LEFT INDEX FINGER 24 GAUGE. PT TOLERATED WELL. PT DENIED FURTHER NEEDS.
[2019-07-08] MEDS: MIDODRINE 2.5 MG TAB PO SCH ×3 (10:13→16:11)
[2019-07-08] MEDS: DOXYCYCLINE HYCLATE TABLET 100 MG TAB PO SCH ×2 (10:13→16:11)
--- NOTE | 2019-07-08 11:00 | NUR ---
DR. LAGOS INSTRUCTED TO DO DIALYSIS TOMORROW INSTEAD OF TODAY PER THE LUBRICATING ENGINEER AT BEDSIDE.
--- NOTE | 2019-07-08 12:45 | NUR ---
DR. LAGOS AT BEDSIDE. ORDER FOR DIALYSIS. INFORMED THE SAME TO ADMISSIONS OFFICER.
--- NOTE | 2019-07-08 12:51 | NUR ---
Nephrology Followup Note SUBJECTIVE: The patient did not appear to be in any distress and denied any nausea, vomiting, chest pain, or shortness of breath. OBJECTIVE: VITAL SIGNS: Blood pressure 116/78, respirations 21, heart rate 74. CHEST: Revealed fair air entry with occasional crackles. HEART: S1, S2. ABDOMEN: Soft. Bowel sounds are positive. EXTREMITIES: Trace edema. RN MEDICAL SURGICAL: She was awake and alert. LABORATORY DATA: reviewed. send new labs tomorrow Chest x-ray did not show any acute pathology from yesterday. IMPRESSION: 1. End stage renal disease, on hemodialysis on a Wednesday, , Wednesday schedule with no significant volume overload or hyperkalemia. 2. Anemia, secondary to end stage renal disease. 3. Sepsis. PLAN: Hemodialysis later today. Continue present treatment. Further recommendations to follow.
[2019-07-08 12:54] LABS: BASOPHILS % 0.5 % (0.0-1.0); EOSINOPHILS # (AUTO) 0.1 (0.0-0.4); EOSINOPHILS % 2.1 % (0.0-6.0); LYMPHOCYTES # (AUTO) 0.8 (1.0-3.2); LYMPHOCYTES % 19.5 % (18.0-39.1); MEAN CORPUSCULAR HGB CONC 28.6 g/dL (31-35); MONOCYTES # (AUTO) 0.4 (0.2-0.8); MONOCYTES % 8.4 % (4.4-11.3); NEUTROPHILS # (AUTO) 2.9 (2.1-6.9); NEUTROPHILS % 68.1 % (38.7-80.0); PLATELET COUNT 100 x10e3/uL (140-360); RED CELL DISTRIBUTION WIDTH 16.6 % (11.7-14.4)
[2019-07-08 13:05] LABS: HEMOGLOBIN 5.4 g/dL (12.0-16.0)
[2019-07-08 13:06] LABS: HEMATOCRIT 18.9 % (34.2-44.1)
--- NOTE | 2019-07-08 13:10 | NUR ---
CALL RECEIVED FROM LAB. PT HGB 5.4 AND HCT 18.9. PAGED DR. CHRIS AND REPORTED THE SAME. GIVE 3 UNITS OF BLOOD WITH DIALYSIS TODAY PER THE
[2019-07-08 13:26] LABS: ANION GAP 11.9 mmol/L (8-16); CREATININE, SERUM 4.72 mg/dL (0.57-1.11)
[2019-07-08] MEDS ORDERED: SODIUM CHLORIDE 0.9% 250ML 250 ML IV ONE (13:30)
[2019-07-08 13:34] LABS: POTASSIUM 2.9 mmol/L (3.5-5.1)
[2019-07-08 13:35] LABS: CALCIUM 5.7 mg/dL (8.4-10.2)
--- NOTE | 2019-07-08 13:40 | NUR ---
PAGED DR. CHRIS AND REPORTED THE LAB VALUES K 2.9 AND CA 5.7. NO NEW ORDERS RECEIVED.
--- NOTE | 2019-07-08 13:45 | NUR ---
CALL RECEIVED FROM ASSISTANT PLANT MANAGER. WILL BE HERE IN 2 HRS PER ASSISTANT PLANT MANAGER.
[2019-07-08 15:31] LABS: HYPOCHROMASIA SLIGHT
[2019-07-08 15:32] LABS: RBC MORPHOLOGY COMMENT ABNORMAL
--- NOTE | 2019-07-08 16:09 | NUR ---
MAINSPRING FORMER AT BEDSIDE.
--- NOTE | 2019-07-08 16:30 | NUR ---
PT PULLED OUT THE LEFT INDEX FINGER IV. TIP INTACT. DRESSING APPLIED. INFORMED THE SAME TO CLINICAL OPERATIONS CONSULTANT AND DR. CHRIS.
--- NOTE | 2019-07-08 16:52 | NUR ---
NEW IV STARTED LEFT UPPER ARM 20 G BY GAUGER CHIEF DELIVERY. PT DENIED FURTHER NEEDS.
[2019-07-08] MEDS ORDERED: SODIUM CHLORIDE 0.9% 250ML 500 ML IV PRN (17:00)
[2019-07-08] MEDS ORDERED: MANNITOL 25% 12.5GM/50 ML VIAL IV PRN (17:00)
[2019-07-08] MEDS ORDERED: ALBUMIN 25% 12.5GM 0.25 GM/ML BTL IV PRN (17:00)
--- NOTE | 2019-07-08 17:05 | NUR ---
TELEPHONE CONSENT RECEIVED FROM DAUGHTER MARTIN ESPINOSA FOR BLOOD TRANSFUSION. 2 RN'S VERIFIED AND WITNESSED.
--- NOTE | 2019-07-08 17:30 | NUR ---
BLOOD TRANSFUSION STARTED BY MEGHANA MORALES RN. VERIFIED WITH 2 RN. PT IS ALERT. NO DISTRESS NOTED.
--- NOTE | 2019-07-08 18:58 | NUR ---
BEDSIDE SHIFT REPORT GIVEN TO THE FINANCIAL ANALYSIS MANAGER RN. DIALYSIS GOING ON WITH FIRST UNIT OF BLOOD TRANSFUSION. PT IS ALERT. NO DISTRESS NOTED. SENIOR PROFESSIONAL SERVICES CONSULTANT AT BEDSIDE.
--- NOTE | 2019-07-08 20:00 | NUR ---
3 UNITS OF PRBCS TRANSFUSED WITH HEMODIALYSIS, 1.1L REMOVED, VANCOMYCIN POST DIALYSIS STARTED. PATIENT TOLERATED BLOOD TRANSFUSIONS WITHOUT REACTIONS.
[2019-07-08] MEDS: VANCOMYCIN 750MG/NS 150ML IVPB 150 ML IV SCH (21:40)
[2019-07-09] VITALS (7 sets, daily range): BP systolic 73–111; BP diastolic 21–90
[2019-07-09] MEDS: HYDROCODONE/APAP 5MG-325MG TAB PO PRN ×3 (06:14→20:56)
[2019-07-09] MEDS: INSULIN LISPRO 100 UNIT/1 ML 3ML VIAL SQ SCH ×4 (07:30→20:56)
[2019-07-09 07:36] LABS: ANION GAP 20.8 mmol/L (8-16); CALCIUM 8.9 mg/dL (8.4-10.2); CREATININE, SERUM 5.38 mg/dL (0.57-1.11); POTASSIUM 4.8 mmol/L (3.5-5.1)
--- NOTE | 2019-07-09 07:56 | NUR ---
Received bedside shift report from off going nurse. Patient in stable condition, no s/s of distress noted. no pain voiced. Telemetry applied and working. Bed in lowest position and working. Call light within reach. Addendum: 07/09/19 at 1005 by Lety Thomas RN Bed alarm applied and working.
[2019-07-09] MEDS: MIDODRINE 2.5 MG TAB PO SCH ×3 (09:13→16:32)
[2019-07-09] MEDS: ARTIFICIAL TEARS (OPTH) 15 ML BTL OD SCH ×4 (09:13→20:56)
[2019-07-09] MEDS: APIXAB 2.5 MG TABLET PO SCH ×2 (09:14→20:56)
[2019-07-09] MEDS: DOXYCYCLINE HYCLATE TABLET 100 MG TAB PO SCH ×2 (09:14→16:32)
[2019-07-09] MEDS: FAMOTIDINE 20 MG/2 ML VIAL IV SCH ×2 (09:18→16:32)
[2019-07-09 10:05] LABS: BASOPHILS # (AUTO) 0.1 (0.0-0.1); BASOPHILS % 0.7 % (0.0-1.0); EOSINOPHILS # (AUTO) 0.2 (0.0-0.4); EOSINOPHILS % 2.2 % (0.0-6.0); HEMATOCRIT 42.9 % (34.2-44.1); HEMOGLOBIN 14.7 g/dL (12.0-16.0); LYMPHOCYTES # (AUTO) 1.8 (1.0-3.2); LYMPHOCYTES % 19.5 % (18.0-39.1); MEAN CORPUSCULAR HEMOGLOBIN 33.6 pg (28-32); MEAN CORPUSCULAR HGB CONC 34.3 g/dL (31-35); MEAN CORPUSCULAR VOLUME 97.9 fL (81-99); MONOCYTES # (AUTO) 0.9 (0.2-0.8); MONOCYTES % 9.9 % (4.4-11.3); NEUTROPHILS % 66.2 % (38.7-80.0); PLATELET COUNT 139 x10e3/uL (140-360); RED BLOOD COUNT 4.38 x10e6/uL (3.6-5.1); RED CELL DISTRIBUTION WIDTH 20.7 % (11.7-14.4)
--- NOTE | 2019-07-09 12:04 | NUR ---
Paged Dr. Ayala due to blood culture results being gram + cocci in clusters. Awaiting a return call.
[2019-07-09 12:12] LABS: ANISOCYTOSIS SLIGHT
--- NOTE | 2019-07-09 13:40 | NUR ---
aware of blood culture results
--- NOTE | 2019-07-09 16:42 | Progress Note ---
DATE: SUBJECTIVE: Ms. Christine remains in the hospital. There are no new complaints. However, her blood cultures remain positive. PHYSICAL EXAMINATION: GENERAL: She is currently alert and oriented, does not seem to be in acute distress. VITAL SIGNS: Currently, afebrile. HEENT: Not icteric. NECK: Supple. CHEST: Clear. HEART: S1, S2. ABDOMEN: Soft. IMPRESSION AND PLAN: 1. Persistent bacteremia, graft infection. CAT scan does not shows any intraabdominal abscess. Discussed with Surgery, removal of the graft and plan that she would need IV access for dialysis. 2. End-stage renal disease. 3. Diabetes mellitus. 4. Obesity. 5. Right upper extremity arteriovenous graft infection. Continue with vancomycin. Removal of the graft as mentioned above. 6. Anemia, status post transfusion, we will follow. MD JEANETTE Myers/MODL /[id number]
--- NOTE | 2019-07-09 18:54 | NUR ---
Completed bedside shift report and rounding. Patient in stable condition, no s/s of distress noted. No pain voiced. Telemetry applied and working. Bed alarm applied and working. Bed in lowest position and locked. Call light within reach.
[2019-07-10] VITALS (9 sets, daily range): BP systolic 92–143; BP diastolic 46–83
[2019-07-10 05:23] LABS: BASOPHILS # (AUTO) 0.1 (0.0-0.1); BASOPHILS % 0.6 % (0.0-1.0); EOSINOPHILS # (AUTO) 0.2 (0.0-0.4); EOSINOPHILS % 2.9 % (0.0-6.0); HEMATOCRIT 41.7 % (34.2-44.1); HEMOGLOBIN 13.6 g/dL (12.0-16.0); LYMPHOCYTES # (AUTO) 1.8 (1.0-3.2); LYMPHOCYTES % 23.6 % (18.0-39.1); MEAN CORPUSCULAR HEMOGLOBIN 32.9 pg (28-32); MEAN CORPUSCULAR HGB CONC 32.6 g/dL (31-35); MONOCYTES # (AUTO) 0.8 (0.2-0.8); MONOCYTES % 10.8 % (4.4-11.3); NEUTROPHILS # (AUTO) 4.7 (2.1-6.9); NEUTROPHILS % 61.3 % (38.7-80.0); PLATELET COUNT 160 x10e3/uL (140-360); RED BLOOD COUNT 4.13 x10e6/uL (3.6-5.1); RED CELL DISTRIBUTION WIDTH 20.8 % (11.7-14.4)
[2019-07-10] MEDS: INSULIN LISPRO 100 UNIT/1 ML 3ML VIAL SQ SCH ×4 (07:30→21:00)
--- NOTE | 2019-07-10 08:30 | NUR ---
Patient has removed dressing to right upper extremity to suture site on AV graft. it appears she has opened the sutures and site is open. Applied new dressing.
[2019-07-10] MEDS: FAMOTIDINE 20 MG/2 ML VIAL IV SCH ×2 (09:00→17:00)
[2019-07-10] MEDS: ARTIFICIAL TEARS (OPTH) 15 ML BTL OD SCH ×4 (09:00→21:32)
--- NOTE | 2019-07-10 09:00 | NUR ---
Dialysis nurse is at the bedside to do dialysis, graft site was checked, and call was made to Dr. Alvarez who said he will be by to look at the site and hold off on dialysis for now.
--- NOTE | 2019-07-10 10:00 | NUR ---
Dr. Alvarez called and said to call IR and tell them that the dialysis catheter order is temporary not tunneled and needs to be placed today bc graft will not be able to be used and patient is going for procedure tomorrow and will need dialysis today. IR nurse, Rox was notified.
--- NOTE | 2019-07-10 10:39 | Progress Note ---
DATE: SUBJECTIVE: The patient is seen and evaluated, available labs and notes reviewed, discussed with attending physician and discussed with dialysis nurse. REVIEW OF SYSTEMS: Complained of pain, sleepy, and wants to sleep. Otherwise, no nausea, vomiting, fever, chills, chest pain, shortness of breath, headache, or rash. OBJECTIVE: VITAL SIGNS: Temperature 97.5, pulse is 63, respirations 17, blood pressure 125/83. GENERAL: Alert and oriented, no acute distress. HEENT: Moist. No pallor. No JVD. CV: S1-S2. CHEST: Equal expansion, clear to auscultation. No acute distress. ABDOMEN: Soft, nontender. No distention. EXTREMITIES: Right upper extremity AV graft. Surgical site seen with sutures. MEDICATIONS/ANTIBIOTICS: The patient on vancomycin IV and doxycycline p.o. LABORATORY STUDIES: White count of 7.7, hemoglobin 13.6, platelets 160, improved from 139. The patient is on dialysis. No new BMP. SEROLOGY: No new serology. MICROBIOLOGY: Recheck blood culture 07/07/2019 positive. IMAGING: CT of abdomen and pelvis on 07/03 showed no acute finding in abdomen or pelvis. Specifically, no intraabdominal abscess. ASSESSMENT AND PLAN: 1. Persistent bacteremia. 2. Status post I and D abscess of right upper extremities where the AV graft is. 3. End-stage renal disease. 4. Diabetes. 5. Obesity. 6. Debility. The patient has a persistent positive bacteremia with the CT of abdomen and pelvis negative as mentioned above, patient had I and D of right upper extremity abscess next to the graft, concern graft infection. The patient is not getting dialyzed since the surgical wound is questionable from dialysis point of view. The patient may get another line as a matter of fact the patient is going to need another line and removal of the right upper extremity graft is recommended by Dr. Ayala and he has already discussed with the surgery team. We continue with antibiotics. Monitor patient clinically and follow with the labs. Dictated by Landry Gutierrez PA-C (Al) Darren Ayala MD /MODL /[id number]
[2019-07-10] MEDS: MIDODRINE 2.5 MG TAB PO SCH ×3 (10:55→17:36)
[2019-07-10] MEDS: DOXYCYCLINE HYCLATE TABLET 100 MG TAB PO SCH ×2 (10:55→17:00)
--- NOTE | 2019-07-10 11:15 | NUR ---
Patient left the floor to have dialysis catheter placed
[2019-07-10] MEDS ORDERED: LIDOCAINE HCL 1% LOCAL INJ 20 ML VIAL ONE (12:17)
[2019-07-10] MEDS ORDERED: IOPAMIDOL 300MG/ML 100 ML INFUS..BTL IV ONE (12:25)
[2019-07-10] MEDS ORDERED: HEPARIN SOD (PORCINE) 1000 UNIT/ML SDV ONE (12:42)
--- NOTE | 2019-07-10 14:26 | Diagnostic Imaging Report ---
Nontunneled dialysis catheter placement, 07/10/2019. History: ESRD, nonfunctioning graft. Comparison: None available. Executive Vice President Business Development: Dr. Pascual. Medication: 5 cc of 1% lidocaine without epinephrine. Conscious sedation: None. EBL: < 2 cc. Specimen: None. Fluoroscopy time: 0.6 minutes. Fluoroscopy dose: 4 mGy (MITCHELL) Technique: After informed consent and timeout procedure, the access site was prepped and draped with the standard maximal sterile barrier technique. Ultrasound images demonstrated vessel patency. Images were documented within PACS. The skin was anesthetized with lidocaine. The right common femoral vein was accessed using a micropuncture set with ultrasound guidance. A 0.035-in. wire was advanced through the micropuncture sheath into the vein. The wire was advanced through the atrium into the IVC using fluoroscopic guidance. The tract was dilated. A 13 Sinhala 20 cm triple-lumen Trialysis catheter was advanced over the wire into the vessel. The catheter was secured with suture. Dressing was applied. The patient tolerated the procedure well without evidence of complication. Postprocedure image demonstrates the line to terminate near the distal IVC. Findings: Access was initially obtained within the superior right internal jugular vein using ultrasound guidance. A Hero catheter was identified coursing through the inferior aspect of the right internal jugular vein and through the SVC into the right atrium. The wire could not be advanced beyond the existing catheter. Contrast was injected demonstrating occlusion of the SVC. Access was subsequently obtained in the right common femoral vein as described above. IMPRESSION: Successful right femoral nontunneled dialysis catheter placement with ultrasound and fluoroscopic guidance guidance. Catheter is ready for immediate use. Signed by: Hans Pascual on 07/10/2019 2:23 PM
[2019-07-10] MEDS: HYDROCODONE/APAP 5MG-325MG TAB PO PRN ×2 (15:07→21:49)
--- NOTE | 2019-07-10 16:09 | NUR ---
ST NOTE: Pt with dialysis nurse, unable to follow up on diet tolerance
--- NOTE | 2019-07-10 16:20 | NUR ---
Nutrition Intervention Note RD Recommendation(s) for Physician: - Recommend adding 1800 ADA to Renal diet restrictions - Recommend Nepro BID for adequacy Plan of Care: RD following, monitoring for tolerance and adequacy. Diet and ONS rec's. Nutrition reason for involvement: Follow up RD Assessment 07/09: Follow up. Pt discussed during am MDR. Pt continues with AMS, very agitated at time of visit. Pt with continued fluctuating intake with recent intake of 0-75% of meals. No GI distress reported. Pt s/p I&D of R arm wound with plan for AV fistula removal and HDC placement per RN. Chart reviewed. Diet and supplement rec's provided. Will continue to monitor. (07/03/19) Chart reviewed. Labs and meds reviewed. Pt is a 68 year old male admitted with AMS, ESRD, and UTI. Unable to speak to pt since he was sleeping at time of visit. It is recorded that pt consumed 75% of meals today and 25-100% of meals yesterday. Per weight history, pt weighed 182 lbs in January 2019; therefore, no weight loss is evident. Primary Diagnose(s): AMS, ESRD, UTI PMH: ESRD, DM, HTN, CAD, HLD GI: LBM 07/07 Skin: R arm wound- infection site Labs: 07/08: Na 134, K 4.8, BUN 19, Cr 5.38, Gluc 84 Meds: abx, norco, zofran, pepcid, insulin Ht: 65 in Wt: 181.56 lb BMI: 30.2 kg/m2 IBW:136 lb Malnutrition Evaluation (07/10/19) The patient does not meet criteria for a specified degree of malnutrition at this time. Will re-evaluate at follow-up as appropriate. Energy intake: <75% of meals for > 7 days Weight loss: No wt loss CENTRAL SERVICES TECH, possible wt changes associated with HD fluid shifts since admit Fat loss: none, ample triceps skinfold thickness Muscle loss: none, shoulder round Supporting Evidence: Fluid accumulation: none Functional Status: unable to evaluate Nutrition Prescription (Diet Order): Renal Estimated Nutritional Needs: 9033-0993 calories/day (18-20 kcal/kg CBW) 80-120 g protein/day (1-1.5 g pro/kg CBW) Diet Adequacy: Not meeting calorie needs, Not meeting protein needs Diet Tolerance: tolerating po Diet Education Needs Assessment: Diet education not indicated at this time, established ESRD pt with ongoing AMS. Nutrition Care Level: moderate Nutrition Diagnosis: Inadequate energy and protein intake related to current medical conditions as evidenced by decreased po intake and not meeting needs. Goal: Patient will meet 75-100% of estimated needs by follow up Progress: Not Progressing Interventions: -Mineral modified diet, Commercial beverage, Recommended Modifications, Multivitamin/mineral supplement therapy, Collaboration with other providers Monitoring/Evaluation: -Total energy intake, Total protein intake, Prescription medication, Modified diet, Liquid supplement Signed: Lillian Musa RD, LD, CNSC
[2019-07-10 17:38] LABS: BASOPHILS % 0.6 % (0.0-1.0); EOSINOPHILS # (AUTO) 0.2 (0.0-0.4); EOSINOPHILS % 2.5 % (0.0-6.0); HEMATOCRIT 35.5 % (34.2-44.1); HEMOGLOBIN 11.5 g/dL (12.0-16.0); LYMPHOCYTES # (AUTO) 1.1 (1.0-3.2); MEAN CORPUSCULAR HGB CONC 32.4 g/dL (31-35); MEAN CORPUSCULAR VOLUME 101.7 fL (81-99); MONOCYTES # (AUTO) 0.7 (0.2-0.8); NEUTROPHILS # (AUTO) 4.7 (2.1-6.9); NEUTROPHILS % 70.3 % (38.7-80.0); PLATELET COUNT 148 x10e3/uL (140-360); RED BLOOD COUNT 3.49 x10e6/uL (3.6-5.1); RED CELL DISTRIBUTION WIDTH 20.3 % (11.7-14.4)
[2019-07-10 17:48] LABS: ANION GAP 17.7 mmol/L (8-16); CALCIUM 8.4 mg/dL (8.4-10.2); CREATININE, SERUM 5.29 mg/dL (0.57-1.11); POTASSIUM 3.7 mmol/L (3.5-5.1)
--- NOTE | 2019-07-10 19:27 | NUR ---
Received pt in bed receiving HD at bedside. No s/sx of acute distress noted. HD staff at bedside.
[2019-07-10] MEDS ORDERED: HEPARIN SOD (PORCINE) 1000 UNIT/ML SDV IV PRN (20:15)
[2019-07-11] VITALS (8 sets, daily range): BP systolic 80–154; BP diastolic 31–91
--- NOTE | 2019-07-11 06:22 | NUR ---
Call placed to Dr. Ayala office regarding positive blood culture results. Message left with Ortega.
--- NOTE | 2019-07-11 07:00 | NUR ---
Received bedside shift report from off going nurse. Patient in stable condition, no s/s of distress noted. no pain voiced. Telemetry applied and working. Bed alarm applied and working. Bed in lowest position and working. Call light within reach.
[2019-07-11] MEDS: INSULIN LISPRO 100 UNIT/1 ML 3ML VIAL SQ SCH ×4 (07:30→21:30)
--- NOTE | 2019-07-11 08:15 | NUR ---
Patient is on the OR schedule for [address] Bolden. There are no orders for consent for a procedure at this time. Paged Dr. Bolden for possible orders. Awaiting online tutor back.
[2019-07-11] MEDS: MIDODRINE 2.5 MG TAB PO SCH ×3 (08:16→15:32)
[2019-07-11] MEDS: FAMOTIDINE 20 MG/2 ML VIAL IV SCH ×2 (08:16→17:06)
[2019-07-11] MEDS: ARTIFICIAL TEARS (OPTH) 15 ML BTL OD SCH ×4 (08:17→21:41)
[2019-07-11] MEDS: DOXYCYCLINE HYCLATE TABLET 100 MG TAB PO SCH ×2 (08:17→17:06)
--- NOTE | 2019-07-11 10:15 | Progress Note ---
DATE: SUBJECTIVE: The patient is seen and evaluated. Available labs and notes reviewed. Discussed with the nurse. REVIEW OF SYSTEMS: No nausea, vomiting, fever, chills, chest pain, shortness of breath, headache, rash, or cough. OBJECTIVE: VITAL SIGNS: Temperature 98.6, pulse is 78, respirations 18, and blood pressure 98/45. GENERAL: Alert and oriented, sleepy. CV: S1 and S2. CHEST: Equal expansion. Clear to auscultation. No acute distress. ABDOMEN: Soft, obese, and nontender. HEENT: Moist. No pallor. No JVD. EXTREMITIES: Right upper extremity surgical site seems like some local infection and seems like has a little bit of pus looking tissue. MEDICATIONS: Medication list reviewed. As far as Infectious Disease point of view, patient is on vancomycin IV and doxycycline. LABORATORY STUDIES: Recheck Coronavirus PCR is pending. Coronavirus PCR was not detected on 06/28/2019. This screening for Coronavirus is mainly done as preop requirement. MICROBIOLOGY: Blood culture still remains positive with MRSA on 07/07/2019, we will recheck the blood again. RADIOLOGY STUDIES: The patient is status post successful right femoral non-tunneled dialysis catheter placement with ultrasound under fluoroscopic guidance with a catheter on Radiology seem to be ready for use. ASSESSMENT AND PLAN: 1. Persistent Methicillin-resistant Staphylococcus aureus bacteremia. 2. Status post I and D right upper extremity abscess at the site of AV graft. 3. End-stage renal disease. 4. Diabetes. 5. Obesity. 6. Debility. 7. Surgical site of right upper extremity seems to be infected, the plan is to remove the AV graft today. Blood cultures are still positive. We will continue her vancomycin IV and doxycycline at this point. Recheck the blood culture. The patient has a new dialysis line in the groin. Please refer to chart for more information. Dictated by Landry Gutierrez PA-C (Al) Darren Ayala MD /MODL /[id number]
[2019-07-11] MEDS ORDERED: HEPARIN SOD (PORCINE) 5,000 UNIT/ML VIAL ONE (10:43)
[2019-07-11] MEDS ORDERED: SODIUM CHLORIDE 0.9% 500ML 500 ML ONE (11:16)
--- NOTE | 2019-07-11 11:39 | NUR ---
Patient off the unit @ 1058 went to the OR. Patient went downstairs in stable condition, no s/s of distress noted.
[2019-07-11] MEDS ORDERED: SUGAMMADEX SODIUM 200 MG/2 ML VIAL IV ONE (12:06)
--- NOTE | 2019-07-11 13:44 | NUR ---
Received patient recovery nurse is at the bedside. Dressing to the right upper extremity is dry and intact. Right radial pulse is faint but present, right upper extremity is warm to touch. Patient has no complaints at this time. Call light in reach, bed alarm on.
--- NOTE | 2019-07-11 16:00 | NUR ---
Per radiology department an attempt was already made for right IJ placement HD cath on 07/10/2019 but was unable to advance catheter so a right femoral was placed Dr. Alvarez stated to attempt placement in the left IJ. IR doctor to call Dr. Alvarez tomorrow am 07/12/2019 about right IJ central line placement. WIll keep patient NPO after midnight until decision is made about where line will be placed. Per Dr. Alvarez right femoral to be pulled after new IJ HD cath is placed on 07/12/2019. As it is an area that can be a source of infection.
--- NOTE | 2019-07-11 16:00 | NUR ---
Patient has removed dressing to surgical site. She is confused. Dr. Alvarez is here making rounds. Per Dr. Alvarez , patient will need a sitter to prevent removing whit from site and pulling out central line. Family was contacted to see if they are available to come stay with the patient. Per the daughter, Irene, no one is available due to work and children. Dr. Serrano is in agreement with order for sitter. cutting supervisor was notified of order for sitter.
[2019-07-11] MEDS: VANCOMYCIN 750MG/NS 150ML IVPB 150 ML IV SCH (17:09)
--- NOTE | 2019-07-11 17:10 | NUR ---
Patient did not receive dialysis today 07/11/19. Dialysis was given on 07-10-19 due to the patient having a procedure today.
--- NOTE | 2019-07-11 17:11 | NUR ---
Patient did not receive dialysis today 07/11/19. Dialysis was given on 07-10-19 due to the patient having a procedure today. Vancomycin held due to not receiving dialysis. Vancomycin is to be given after dialysis.
[2019-07-11] MEDS ORDERED: DEXAMETHASONE SOD PHOS INJ 4 MG/ML VIAL ONE (17:24)
[2019-07-11] MEDS ORDERED: ETOMIDATE 2 MG/ML 10 ML INJ IV ONE (17:24)
[2019-07-11] MEDS ORDERED: ROCURONIUM BROMIDE 10 MG/ML 5ML VIAL IV ONE (17:24)
[2019-07-11] MEDS ORDERED: SEVOFLURANE INHAL SOLN 250 ML PEN BTL ONE (17:24)
[2019-07-11] MEDS ORDERED: LIDOCAINE HCL 2% LOCAL INJ 5 ML SDV VIAL INJ ONE (17:24)
[2019-07-11] MEDS ORDERED: ONDANSETRON HCL INJ 2MG/ML 2ML 2 MG/ML VIAL ONE (17:24)
[2019-07-11] MEDS ORDERED: FENTANYL CITRATE/PF 100MCG/2 ML INJ ONE (18:39)
--- NOTE | 2019-07-11 19:36 | Operative Report ---
DATE OF PROCEDURE: 07/11/2019 SURGEON: Hayden Bolden MD PREOPERATIVE DIAGNOSIS: Infected right arm arteriovenous dialysis graft. POSTOPERATIVE DIAGNOSIS: Infected right arm arteriovenous dialysis graft. PROCEDURE: Removal of right arm arteriovenous dialysis graft, repair of right brachial artery. MILITARY SCIENCE TEACHER: None. ANESTHESIA: General. INDICATIONS AND FINDINGS: The patient is a 68-year-old female, who has a right upper arm AV graft, who had an abscess surrounded. She has had persistent positive blood cultures with the source of the infection being the graft. In surgery, the graft was well incorporated at the arterial and venous ends of the graft, but the midportion was not well incorporated. The graft was taken flushed with the brachial artery requiring repair of the artery while there was an attachment device of the venous side, which was left in place with a graft taken just proximal to this. Entire graft between these areas was removed. TECHNIQUE: After adequate general anesthesia, the patient in supine position, the right arm was prepped and draped in a sterile fashion with Betadine solution. Incision was made over the arterial end of the graft, carried down through subcutaneous tissue. The grafts identified, dissected free to its anastomosis with the brachial artery was then divided, almost flushed with the brachial artery. The brachial artery was repaired with a running suture of 5-0 Prolene. The graft was then dissected free from the subcutaneous tissues. There was an incision on the most dependent portion of the graft and this was dissected free of this area also until the entire medial part of the graft was completely free and was removed as a counter incision made toward the venous end of the graft and the graft was dissected free in this area and then from subcutaneous tissues and incision also made at the venous end of the graft. The graft dissected free at this level also. There was some sort of attachment devices at this end. This was left in place. The graft dissected free proximal of this. Then divided at this level and the graft suture ligated with 2-0 silk and the remaining graft was dissected free from the subcutaneous tissues and completely removed. Each wound was then irrigated with saline, inspected for hemostasis, which was seen to be adequate. The wounds were then closed with whit. However, the wound was loosely closed at the site where the abscess had been. Sterile dressing was applied. The patient tolerated the procedure well. Estimated blood loss was 75 mL. There were no complications. All counts were correct. The patient was taken to the recovery room in satisfactory condition. MD RAYSHAWN Ryan/SHELLEY /[id number]
[2019-07-12] VITALS (9 sets, daily range): BP systolic 97–130; BP diastolic 49–84
--- NOTE | 2019-07-12 07:22 | NUR ---
Received bedside shift report from off going nurse. Patient in stable condition, no s/s of distress noted. no pain voiced. Sitter at bedside. Bed alarm applied and working. Bed in lowest position and working. Call light within reach.
[2019-07-12] MEDS: INSULIN LISPRO 100 UNIT/1 ML 3ML VIAL SQ SCH ×4 (07:30→21:00)
[2019-07-12] MEDS: DOXYCYCLINE HYCLATE TABLET 100 MG TAB PO SCH (09:00)
[2019-07-12] MEDS: FAMOTIDINE 20 MG/2 ML VIAL IV SCH ×2 (09:00→16:58)
[2019-07-12] MEDS: ARTIFICIAL TEARS (OPTH) 15 ML BTL OD SCH ×4 (09:00→22:36)
[2019-07-12] MEDS: MIDODRINE 2.5 MG TAB PO SCH ×3 (09:28→17:04)
--- NOTE | 2019-07-12 10:18 | Progress Note ---
DATE: SUBJECTIVE: The patient is seen and evaluated. Available labs and notes reviewed. Discussed with the nurse and discussed with the dialysis nurse. The patient currently getting dialyzed, status post temporary dialysis line in the groin. Pending permanent dialysis line. PHYSICAL EXAMINATION: VITAL SIGNS: Temperature of 98.2, pulse is 61, respirations 18, and blood pressure 119/51. GENERAL: Alert and oriented, in no acute distress. CV: S1, S2. CHEST: Equal expansion. Clear to auscultation. No acute distress. ABDOMEN: Soft, obese, nontender. HEENT: Moist. No pallor. No JVD. EXTREMITIES: Right upper extremity surgical site on local care, dressed and seems to be wet. MEDICATIONS: Medication list reviewed. As far as Infectious Disease point of view, the patient is on vancomycin IV 750 mg on each dialysis and doxycycline 100 mg p.o. b.i.d. LABORATORY STUDIES: White count of 6.73, hemoglobin 11.5, platelet of 148, however, this is a 2 days old lab result. SEROLOGY: Coronavirus PCR negative x2, one on 06/27 and one on 07/09. MICROBIOLOGY: Blood culture on 07/06 positive for MRSA. IMAGING: No new radiology studies available. ASSESSMENT AND PLAN: 1. Persistent methicillin-resistant Staphylococcus aureus bacteremia with concern of infected arteriovenous graft. The patient is status post temporarily catheterization for dialysis and pending PermCath placement hopefully today with the plan of removal of the infected arteriovenous graft. 2. Right upper extremity abscess. 3. Arteriovenous graft, status post incision and drainage by General Surgery. 4. End-stage renal disease. 5. Obesity. 6. Debility. 7. Diabetes. 8. We will recheck the blood culture. So far all cultures from the blood are positive for MRSA. Continue with antibiotics. Hopefully get AV graft removed soon. Discussed with Dr. Ayala in details. Please refer to chart for more information. Dictated by Landry Gutierrez PA-C (Al) Darren Ayala MD /MODL /[id number]
[2019-07-12] MEDS: HYDROCODONE/APAP 5MG-325MG TAB PO PRN (12:34)
[2019-07-12] MEDS: VANCOMYCIN 750MG/NS 150ML IVPB 150 ML IV SCH (12:43)
--- NOTE | 2019-07-12 12:43 | NUR ---
Vancomycin administered after Dialysis today one litter taken off from dialysis.
--- NOTE | 2019-07-12 12:49 | NUR ---
WOUND CARE CONSULT FOR STATUS FOLLOW UP PATIENT CONTINUES TO BEFREE OF ANY NEW OR HAW REMAINS ON MODERATE PUP STATUS AND INTERVENTIONS Addendum: 07/12/19 at 1251 by Gerhard Contreras RN Amended: Links added.
[2019-07-12] MEDS ORDERED: SODIUM CHLORIDE 0.9% 250ML 750 ML IV PRN (13:15)
[2019-07-12] MEDS: RIFAMPIN 300 MG CAP PO SCH (14:56)
--- NOTE | 2019-07-12 15:05 | NUR ---
DC PLAN WAS [facility] ON HOLD DUE TO REMOVAL OF AV GRAFT YESTERDAY DISCUSSED DC PLAN WITH DR CHAND TODAY; PT MAY NEED TRANSFER TO [facility] I.R[facility] FOR TUNNELED DIALYSIS CATH IF NOT ABLE TO PLACE HERE DR CHRIS WILL SPEAK WITH PT ABOUT [facility] REHAB EVAL AND TRANSFER AND THEN CAN GO TO I.R. AT [facility] FROM THERE CM TO FOLLOW DOPPLER OF UPPER EXT TODAY; RESULTS PENDING
--- NOTE | 2019-07-12 19:22 | NUR ---
RECEIVED BEDSIDE SHIFT REPORT FROM DAY RN. PT SPEAKS MOZAMBICAN AND HAS SITTER. RESPIRATIONS ARE EVEN AND UNLABORED. O2 AT 3l PER N/C. TELE ON. HX PACEMAKER. HX DM. DRESSING TO RT ARM DRY AND INTACT.RT FEMORAL TL CATHETER INTACT- SITE HEALTHY AND FLUSHES EASILY. REMAINS ON ISOLATION FOR MRSA IN BLOOD. BOWEL SOUNDS PRESENT. PT TO BE NPO AT 12 MN FOR RT INTRAJUGULAR HEMODIALYSIS CATH PLACEMENT.CALL LIGHT WITHIN REACH. BED IN LOW POSITION.SITTER AT BEDSIDE
[2019-07-13] VITALS (7 sets, daily range): BP systolic 95–141; BP diastolic 33–82
[2019-07-13] MEDS: ACETAMINOPHEN 325 MG TAB PO PRN ×2 (02:01→21:59)
--- NOTE | 2019-07-13 07:00 | NUR ---
BEDSIDE SHIFT REPORT RECEIVED FROM STAFF RESEARCH ASSOCIATE RN. PT DENIES NEEDS AT THIS TIME.
[2019-07-13] MEDS: INSULIN LISPRO 100 UNIT/1 ML 3ML VIAL SQ SCH ×4 (07:30→21:00)
[2019-07-13] MEDS: MIDODRINE 2.5 MG TAB PO SCH ×3 (08:00→16:00)
[2019-07-13] MEDS: RIFAMPIN 300 MG CAP PO SCH (09:00)
[2019-07-13] MEDS: ARTIFICIAL TEARS (OPTH) 15 ML BTL OD SCH ×4 (09:30→21:59)
[2019-07-13] MEDS: FAMOTIDINE 20 MG/2 ML VIAL IV SCH ×2 (09:33→17:52)
--- NOTE | 2019-07-13 10:32 | Progress Note ---
DATE: SUBJECTIVE: The patient is seen and evaluated. Available labs and notes reviewed. Discussed with the nurse. REVIEW OF SYSTEMS: The patient seems to be comfortable in bed, not much of a complaint. States that she is sleepy. Otherwise, no nausea, vomiting, fever, chills, chest pain, shortness of breath. PHYSICAL EXAMINATION: VITAL SIGNS: Temperature 98.1, pulse is 64, respirations 18, and blood pressure 137/64. GENERAL: Alert and oriented, weak and sleepy. No acute distress. The patient has a sitter in room, so she keeps playing with her right upper extremity wound with infection. CV: S1, S2. CHEST: Equal expansion. Clear to auscultation. No acute distress. ABDOMEN: Soft, obese, nontender. Bowel sounds positive. HEENT: Moist. No pallor. No JVD. EXTREMITIES: Right upper extremity AV graft site with infection. MEDICATIONS: Reviewed. As far as Infectious Disease point of view, the patient is on vancomycin IV and rifampin. Doxycycline was stopped yesterday. Rifampin started yesterday at 600 mg p.o. daily. LABORATORY STUDIES: No new CBC or BMP. The patient is on dialysis. SEROLOGY: No new serology. However, coronavirus PCR was negative on 06/27 and 07/09. MICROBIOLOGY: Blood culture recheck is pending. IMAGING: No new radiology studies available. ASSESSMENT AND PLAN: 1. Persistent methicillin-resistant Staphylococcus aureus bacteremia, source most likely is the infected right upper extremity graft. The patient is status post temporary dialysis catheter placement pending. PermCath placement hopefully today. Follow up with recheck blood culture and pending AV graft removal. 2. Right upper extremity abscess, status post I and D. 3. End-stage renal disease. 4. Obesity. 5. Debility. 6. Diabetes. Continue vancomycin IV and rifampin. We will follow with the blood culture, awaiting for graft removal and placement of a permanent dialysis catheter. Please refer to chart for more information. Discussed with Dr. Ayala in details. Dictated by Landry Gutierrez PA-C (Al) Darren Ayala MD /MODL /[id number]
--- NOTE | 2019-07-13 17:25 | NUR ---
THIS NURSE CALLED RADIOLOGY TO INQUIRE ABOUT WHEN CATH PLACEMENT WOULD TAKE PLACE. THEY SAID IT HAD BEEN CANCELED. DR. HERNÁNDEZ CONFIRMED AND OK'D PT TO EAT. SAID HE WOULD TALK TO DR. CHRIS ON HOW TO PROCEED.
[2019-07-13] MEDS: VANCOMYCIN 750MG/NS 150ML IVPB 150 ML IV SCH (17:54)
--- NOTE | 2019-07-13 17:55 | NUR ---
VANCOMYCIN NOT GIVEN SINCE PT IS NOT SCHEDULED FOR DIALYSIS UNTIL AFTER CATH PLACEMENT. ORDERS STATED TO GIVE POST DIALYSIS.
--- NOTE | 2019-07-13 18:14 | NUR ---
TOOK COPY OF ORDER AND INFORMED HOUSE SUP OF NEED FOR BED FOR TRANSFER.
--- NOTE | 2019-07-13 18:19 | Progress Note ---
DATE: 07/13/2019 SUBJECTIVE: Ms. Christine is seen on rounds today. She is quite upset, says she insists that she has a UTI and wants IV antibiotics bore. The patient otherwise is much more alert, much more awake. OBJECTIVE: VITAL SIGNS: Temperature 98.1, respirations 18, heart rate 64, blood pressure of 137/64 with O2 sats of 99% on room air. GENERAL: Clinically, she is feeling a little bit better, but still upset that she is not getting the antibiotics that she feels she needs. The patient is breathing well. No apparent distress at this time. Functionally, was seen by therapy today. She absolutely will consider going to inpatient rehab. Her left knee range of motion is 0-20 degrees. She has dorsiflexion weakness. She requires minimal assist for static sitting, but for transfers require significant help. Max assist with bed mobility. Overall, patient is willing to consider rehab and at this point, she really does not qualify for inpatient services and we are working on discharge planning to community hospital. John Nieto DO RPL/MODL /[id number]
--- NOTE | 2019-07-13 19:15 | NUR ---
Bedside shift report received from day rn. Pt to transfer to [facility] when bed available. Nursing gaming floor supervisor aware. Radiology called to make CD of procedures. pt speaks korean. Pt pulls at dressings and iv. respirations are even and unlabored. Tele on. Pacemaker. Rt arm dressing coming off pt pulling at incisions. Rt TL Femoral cath without reddness - flushed with normal saline flush. Turned. Call light within reach. Bed in low position. Pt incontinent of bladder- dialysis pt.
--- NOTE | 2019-07-13 22:15 | Consultation ---
DATE OF CONSULTATION: 07/12/2019 REASON FOR CONSULTATION: 1. Debilitated state. 2. The patient with MRSA of the wound. HISTORY OF PRESENT ILLNESS: A 68-year-old Latin female, who came to the hospital on 06/28/2019, with altered mental status, had brain CT, but did not show any intracranial hemorrhage or infarct. Had a chest CT, which showed upper lobe airspace opacification. She is doing a little bit better. She did have a recent line placement and is needing a sitter in order to protect her from pulling out her line. The patient overall is doing little bit better and is being followed up with Dr. Ayala for a wound. She is MRSA positive for right upper extremity abscess and also with Staph aureus bacteremia AV graft. She also has end-stage renal disease. I am being asked to evaluate for rehab needs. PAST MEDICAL HISTORY: Includes end-stage renal disease on hemodialysis, obesity, and diabetes. A right upper extremity wound abscess. SOCIAL HISTORY: Lives with her spouse, very supportive. FAMILY HISTORY: Positive for diabetes. ALLERGIES: NO KNOWN DRUG ALLERGIES. REVIEW OF SYSTEMS: Unable to obtain from the patient at this time. FAMILY HISTORY: Unable to obtain. LABORATORY STUDIES: White cell count is down to 6.7, hemoglobin 11.5, hematocrit 35.5, platelets of 148. INR is 1.3. The patient had a nonfunctioning graft and had the tunneled catheter placement. Unfortunately, she is pulling at it and needs a sitter to prevent her from pulling it. Therapy miller, the patient was mod assist with supine to sit, transfers, supervision with static sitting. Ambulating 150 feet although she has mowed the lawn. She actually does pretty fairly well. PHYSICAL EXAMINATION: GENERAL: The patient seen with nursing. The patient is sleepy, but easily arousable confused at this time. At this time. The patient is awake and alert. When asked to protrude her tongue, she opened her mouth in order to protrude her tongue. VITAL SIGNS: Temperature 98.1, respirations 18, heart rate 64, blood pressure 137/64. NECK: No JVD. The patient is breathing well. ABDOMEN: Obese. EXTREMITIES: She has dressing in the right upper extremity. She demonstrates essentially 3/4 strength in upper extremities bilaterally and lower extremities. She needed a couple of cues in order to follow commands consistently. But she pretty much has 2-3/5 strength in lower extremities, did not really resist against me much. Clonus negative bilaterally. No increased tone or passive range of motion arms or legs. IMPRESSION: 1. Debilitation. 2. Right upper extremity abscess with MRSA bacteremia. 3. End-stage renal disease on hemodialysis. 4. Debility, not able to ambulate as she did at baseline. PLAN: She does need a sitter at this time that may be an issue. We will check and see about rehab. As this looks like she could benefit from multidisciplinary rehab program. Precautions falls. We will follow along with you. Thank you very much again for allowing me to participate in the care of this pleasant, but unfortunate patient. John Nieto DO RPL/MODL /[id number]
[2019-07-14] VITALS (7 sets, daily range): BP systolic 93–145; BP diastolic 23–86
--- NOTE | 2019-07-14 02:43 | NUR ---
[facility] CALLED ABOUT STATUS UPDATE FOR PT . BED AT [facility] PENDING. THEY WILL CALL US WHEN BED AVAILABLE.
--- NOTE | 2019-07-14 07:00 | NUR ---
BEDSIDE SHIFT REPORT RECEIVED FROM POWERSAW SUPERVISOR RN. PT DENIES NEEDS AT THIS TIME.
[2019-07-14] MEDS: INSULIN LISPRO 100 UNIT/1 ML 3ML VIAL SQ SCH ×4 (07:30→21:00)
[2019-07-14] MEDS: MIDODRINE 2.5 MG TAB PO SCH ×3 (08:13→16:00)
[2019-07-14] MEDS: FAMOTIDINE 20 MG/2 ML VIAL IV SCH ×2 (08:13→17:03)
[2019-07-14] MEDS: ARTIFICIAL TEARS (OPTH) 15 ML BTL OD SCH ×4 (08:13→22:46)
[2019-07-14] MEDS: RIFAMPIN 300 MG CAP PO SCH (08:13)
--- NOTE | 2019-07-14 09:00 | NUR ---
DAUGHTER CONTACTED FOR CONSENT TO TRANSFER TO [facility] AND TRANSPORTATION. AUTHORIZATION GIVEN.
--- NOTE | 2019-07-14 09:17 | NUR ---
NURSING REC'D ORDERS LAST EVENING TO TRANSFER PT TO [facility] FOR DIALYSIS LINE PLACEMENT RASHAUN SPOKE WITH NURSE, MOMO WHO STATES HOUSE SUP INITIATED TRANSFER LAST EVENING RASHAUN SPOKE WITH MOMO PAR[place] WHO CONFIRMS HE HAS MOT IN HIS OFFICE AND WILL FOLLOW UP ON BED AVAILABILITY THIS MORNING
--- NOTE | 2019-07-14 10:18 | Progress Note ---
DATE: ADDENDUM: Discussed with General Surgery. Right upper extremity dressed. AV graft removed. Continue follow up with the blood culture. Dictated by Landry Kinney) RETA Gutierrez Darren Ayala MD /DAYANARAL /[id number]
--- NOTE | 2019-07-14 10:42 | Progress Note ---
DATE: SUBJECTIVE: The patient is seen and evaluated. Available labs and notes reviewed. Discussed with the nurse and discussed with Dr. Ayala. The patient is currently comfortable in bed. Had dialysis in the room. REVIEW OF SYSTEMS: No new complaints of nausea, vomiting, fever, chills, chest pain, shortness of breath, headache, or rash. PHYSICAL EXAMINATION: VITAL SIGNS: Temperature 97.4, pulse 70, respirations 18, and blood pressure 123/68. MEDICATIONS/ANTIBIOTICS: The patient is on vancomycin IV and rifampin. LABORATORY STUDIES: No new CBC or BMP. MICROBIOLOGY STUDIES: Recheck blood culture 07/13/2019 is negative 24 hours. IMAGING: No new radiology studies available. PHYSICAL EXAMINATION: GENERAL: Comfortable in bed, weak in general. CV: S1-S2. CHEST: Equal expansion. Clear to auscultation. No acute distress. ABDOMEN: Soft, nontender. No distention. HEENT: Moist. No pallor. No JVD. EXTREMITIES: Right upper extremity surgical site on local care. ASSESSMENT AND PLAN: 1. Persistent bacteremia. 2. Infected AV graft-status post removal. 3. Currently with temporary catheter in need of a tunneled dialysis catheter. 4. End-stage renal disease. 5. Obesity. 6. Debility. 7. Diabetes. Follow up with blood culture, plan is to transfer the patient to [facility], rehab eval noted, continue with antibiotics and monitor the patient clinically and follow up with the labs. Discussed with Dr. Ayala in details. Please refer to chart for more information. Dictated by Landry Gutierrez PA-C (Al) Darren Ayala MD /MODL /[id number]
--- NOTE | 2019-07-14 13:23 | NUR ---
DIALYSIS STOPPED AFTER TAKING OFF ONLY 230 ML. C[address] REPEATED[address] CLOTTED. DR. HERRMANN INFORMED AND ORDERED FOR THE FEMORAL CATH TO BE REPLACED.
--- NOTE | 2019-07-14 15:00 | NUR ---
PT OFF THE FLOOR TO [facility] FOR TUNNELED CATH PLACEMENT.
[2019-07-15] VITALS: BP 111/80
[2019-07-15 04:00] VITALS: BP 131/76
--- NOTE | 2019-07-15 07:00 | NUR ---
Patient resting comfortably. No acute distress noted. Shift report given to oncoming nurse .
[2019-07-15] MEDS: INSULIN LISPRO 100 UNIT/1 ML 3ML VIAL SQ SCH ×4 (07:30→21:00)
[2019-07-15] MEDS: ARTIFICIAL TEARS (OPTH) 15 ML BTL OD SCH ×4 (08:47→21:40)
[2019-07-15] MEDS: MIDODRINE 2.5 MG TAB PO SCH ×3 (08:47→17:37)
[2019-07-15] MEDS: FAMOTIDINE 20 MG/2 ML VIAL IV SCH ×2 (08:47→17:02)
[2019-07-15] MEDS: RIFAMPIN 300 MG CAP PO SCH (09:00)
[2019-07-15 11:06] VITALS: BP 120/44
[2019-07-15 13:54] VITALS: BP 142/65
--- NOTE | 2019-07-15 15:28 | Progress Note ---
DATE: SUBJECTIVE: Ms. Christine remains in medical floor, comfortable. PHYSICAL EXAMINATION: GENERAL: She is currently alert. VITAL SIGNS: Stable, afebrile. HEENT: She is not icteric. NECK: Supple. CHEST: Clear. HEART: S1 and S2. ABDOMEN: Soft. LABORATORY DATA: Repeat blood cultures are negative 48 hours from July 12. Her white count 6.7 and hemoglobin 11. IMPRESSION: 1. Sepsis with methicillin-resistant Staphylococcus aureus bacteremia due to AV graft, which was removed. 2. End-stage renal disease, on hemodialysis. 3. Obesity, debility. The plan is to continue with vancomycin. She will need 8 weeks intravenous antibiotic. She is currently with temporary dialysis catheter. If she continued to be non-bacteremic, can place a more permanent one in a few days if need to. We will discuss with Renal. MD JEANETTE Myers/SHELLEY /[id number]
[2019-07-15 16:07] VITALS: BP 99/69
--- NOTE | 2019-07-15 16:51 | NUR ---
Nutrition Intervention Note RD Recommendation(s) for Physician: - Continue renal diet and consistency per speech therapy or MD - Recommend Nepro BID for added nutrition Plan of Care: RD following, monitoring for tolerance and adequacy. Diet and ONS rec's. Nutrition reason for involvement: Follow up RD Assessment 07/14: Follow up. Spoke to RN who stated pt did not eat breakfast this morning due to being lethargic. Recommend Nepro BID for added nutrition. Will continue to monitor. 07/09: Follow up. Pt discussed during am MDR. Pt continues with AMS, very agitated at time of visit. Pt with continued fluctuating intake with recent intake of 0-75% of meals. No GI distress reported. Pt s/p I&D of R arm wound with plan for AV fistula removal and HDC placement per RN. Chart reviewed. Diet and supplement rec's provided. Will continue to monitor. (07/03/19) Chart reviewed. Labs and meds reviewed. Pt is a 68 year old male admitted with AMS, ESRD, and UTI. Unable to speak to pt since he was sleeping at time of visit. It is recorded that pt consumed 75% of meals today and 25-100% of meals yesterday. Per weight history, pt weighed 182 lbs in January 2019; therefore, no weight loss is evident. Primary Diagnose(s): AMS, ESRD, UTI PMH: ESRD, DM, HTN, CAD, HLD GI: soft, non-tender round abdomen, last recorded BM 07/07 Skin: R arm wound- infection site Labs: 07/09: Na 137, K 3.7, BUN 20, Cr 5.29, Glu 95 07/08: Na 134, K 4.8, BUN 19, Cr 5.38, Gluc 84 Meds: antibiotics, pepcid, zofran, insulin, mannitol Ht: 65 in Wt: 176 lbs (07/13) 181.56 lb (07/05) BMI: 29.3 kg/m2 IBW:125 lb Malnutrition Evaluation (07/10/19) The patient does not meet criteria for a specified degree of malnutrition at this time. Will re-evaluate at follow-up as appropriate. Energy intake: <75% of meals for > 7 days Weight loss: No wt loss TEXT TRANSCRIBER, possible wt changes associated with HD fluid shifts since admit Fat loss: none, ample triceps skinfold thickness Muscle loss: none, shoulder round Supporting Evidence: Fluid accumulation: none Functional Status: unable to evaluate Nutrition Prescription (Diet Order): Renal with pureed consistency Estimated Nutritional Needs: 8008-6346 calories/day (18-20 kcal/kg CBW) Weight used: 176 lbs 80-120 g protein/day (1-1.5 g pro/kg CBW) Weight used: 176 lbs Diet Adequacy: Not meeting calorie needs, Not meeting protein needs Diet Tolerance: tolerating po Diet Education Needs Assessment: Diet education not indicated at this time Nutrition Care Level: moderate Nutrition Diagnosis: Inadequate energy and protein intake related to current medical conditions as evidenced by decreased po intake and not meeting needs. Goal: Patient will meet 75-100% of estimated needs by follow up Progress: Not Progressing Interventions: -Mineral modified diet, Commercial beverage, Recommended Modifications, Collaboration with other providers Monitoring/Evaluation: -Total energy intake, Total protein intake, Modified diet, Liquid supplement Signed: Joy Yuan RD, LD
[2019-07-15] MEDS: VANCOMYCIN 1GM/NS 250 ML 250 ML IV SCH (17:02)
--- NOTE | 2019-07-15 19:08 | NUR ---
report given to oncoming nurse, walking rounds compete, pt stable at this time.
--- NOTE | 2019-07-15 19:22 | NUR ---
Patient received lying in bed. AAO x 2. Patient had no complaints of pain. Respirations even and non-labored. Safety measures in place. Sitter at bedside. Call light within reach.
--- NOTE | 2019-07-15 21:45 | NUR ---
Dressing to right arm changed per MD's orders.
[2019-07-15] MEDS: ACETAMINOPHEN 325 MG TAB PO PRN (22:13)
[2019-07-16] VITALS (8 sets, daily range): BP systolic 103–125; BP diastolic 40–86
[2019-07-16] MEDS: ACETAMINOPHEN 325 MG TAB PO PRN (05:45)
--- NOTE | 2019-07-16 07:00 | NUR ---
Walking rounds done. Bedside report given to oncoming nurse regarding patient's status.
[2019-07-16] MEDS: INSULIN LISPRO 100 UNIT/1 ML 3ML VIAL SQ SCH ×4 (07:30→21:07)
--- NOTE | 2019-07-16 08:30 | NUR ---
called Dr. Bolden, Dr. Cruz distribution field engineer. spoke with Dr. Cruz about pts removal of femoral dialysis catheter and removal of temporary catheter in her jugular, Dr. Hollis asked that a Perma-cath be palced. Dr Cruz Stated he will inform Dr. Bolden.
[2019-07-16] MEDS: MIDODRINE 2.5 MG TAB PO SCH ×3 (09:42→17:42)
[2019-07-16] MEDS: ARTIFICIAL TEARS (OPTH) 15 ML BTL OD SCH ×4 (09:42→21:06)
[2019-07-16] MEDS: FAMOTIDINE 20 MG/2 ML VIAL IV SCH ×2 (09:42→17:42)
[2019-07-16] MEDS: RIFAMPIN 300 MG CAP PO SCH (09:42)
--- NOTE | 2019-07-16 14:22 | Progress Note ---
DATE: 07/16/2019 SUBJECTIVE: Ms. Christine is seen on rounds today. She is sleeping comfortably and is currently doing okay. She still has her sitter and they note that she is picking at her line still and required a sitter. Rather than wake her up, reported from nursing that the patient is doing okay right now. OBJECTIVE: VITAL SIGNS: Temperature 97.8 axillary, respirations 18, heart rate 61, and blood pressure 108/86. No medications at this time. Therapy miller, the patient is getting some activity. The patient walked 50 feet and 20 feet with minimal assist. She is making improvement with regard to her mobility, slow stride, full length, etc., however, she continues to require sitter, which cannot be provided at current circumstances. Continue supportive care. We will follow at a distance. Discussed with staff. John Nieto DO RPL/MODL /[id number]
--- NOTE | 2019-07-16 16:37 | Progress Note ---
DATE: SUBJECTIVE: Ms. Christine is currently lying in bed comfortably. PHYSICAL EXAMINATION: GENERAL: She is currently alert and oriented. Does not seem to be in acute distress. VITAL SIGNS: Stable, afebrile. There is no fever in several days now. HEENT: Normocephalic. NECK: Supple. No JVD. No lymphadenopathy. No thyromegaly. CHEST: Clear bilateral. HEART: S1 and S2. No S3, S4, or murmurs. ABDOMEN: Soft. Bowel sounds present. No tenderness. EXTREMITIES: No edema. LABORATORY DATA: Her cultures from the is negative. IMPRESSION: 1. Methicillin-resistant Staphylococcus aureus sepsis bacteremia secondary to graft, which was removed. 2. End-stage renal disease, on hemodialysis. 3. Anemia, status post transfusion, corrected. 4. Debility. 5. Diabetes mellitus. 6. The patient is currently on insulin and vancomycin. Recommend to give her 2 more months of intravenous vancomycin 1 g with each hemodialysis. I can plan for more permanent dialysis access. Could be done this coming week and discharge when the vancomycin has been arranged. MD JEANETTE Myers/MODL /[id number]
--- NOTE | 2019-07-16 19:13 | NUR ---
walking rounds complete, pt stable, report given to on coming nurse.
[2019-07-17] VITALS (8 sets, daily range): BP systolic 97–118; BP diastolic 54–95
[2019-07-17 05:19] LABS: BASOPHILS # (AUTO) 0.1 (0.0-0.1); EOSINOPHILS # (AUTO) 0.2 (0.0-0.4); EOSINOPHILS % 4.5 % (0.0-6.0); HEMATOCRIT 36.7 % (34.2-44.1); LYMPHOCYTES # (AUTO) 1.8 (1.0-3.2); LYMPHOCYTES % 35.7 % (18.0-39.1); MEAN CORPUSCULAR HEMOGLOBIN 33.2 pg (28-32); MEAN CORPUSCULAR HGB CONC 32.7 g/dL (31-35); MEAN CORPUSCULAR VOLUME 101.7 fL (81-99); MONOCYTES # (AUTO) 0.5 (0.2-0.8); MONOCYTES % 9.7 % (4.4-11.3); NEUTROPHILS # (AUTO) 2.5 (2.1-6.9); NEUTROPHILS % 48.9 % (38.7-80.0); PLATELET COUNT 143 x10e3/uL (140-360); RED BLOOD COUNT 3.61 x10e6/uL (3.6-5.1); RED CELL DISTRIBUTION WIDTH 19.3 % (11.7-14.4)
[2019-07-17 05:45] LABS: ANION GAP 18.6 mmol/L (8-16); CALCIUM 9.5 mg/dL (8.4-10.2); CREATININE, SERUM 7.59 mg/dL (0.57-1.11); POTASSIUM 4.6 mmol/L (3.5-5.1)
--- NOTE | 2019-07-17 07:15 | NUR ---
Bedside report and walking rounds with oncoming nurse. Patient in bed with call light within reach. No issues or concerns noted.
[2019-07-17] MEDS: INSULIN LISPRO 100 UNIT/1 ML 3ML VIAL SQ SCH ×4 (07:30→21:00)
[2019-07-17] MEDS: MIDODRINE 2.5 MG TAB PO SCH ×3 (08:58→16:27)
[2019-07-17] MEDS: ARTIFICIAL TEARS (OPTH) 15 ML BTL OD SCH ×4 (08:58→21:51)
[2019-07-17] MEDS: FAMOTIDINE 20 MG/2 ML VIAL IV SCH ×2 (08:58→17:07)
[2019-07-17] MEDS: RIFAMPIN 300 MG CAP PO SCH (08:58)
--- NOTE | 2019-07-17 10:25 | Progress Note ---
DATE: SUBJECTIVE: The patient is seen and evaluated, available labs and notes reviewed. Discussed with Dr. Ayala. Also spoke with the attending, Dr. Serrano. REVIEW OF SYSTEMS: No nausea, vomiting, fever, chills, chest pain, shortness of breath, headache, rash, dysuria. OBJECTIVE: VITAL SIGNS: Temperature 98.3, pulse is 89, respirations 17, blood pressure 97/54. GENERAL: Alert and oriented, no acute distress. CV: S1 and S2. CHEST: Equal expansion. Clear to auscultation. No acute distress. ABDOMEN: Soft, obese, nontender. HEENT: Moist. No pallor. No JVD. EXTREMITIES: Right upper extremity previous AV graft site seen. Surgical site with whit. Small dehiscence on one of the wounds, but no active drainage noted. There is no significant erythema or tightness. MEDICATIONS: From Infectious Disease point of view, the patient is on vancomycin IV with dialysis. LABORATORY STUDIES: White count of 5.07, hemoglobin 12, platelet 143. Sodium 135, potassium 4.6 creatinine on dialysis. SEROLOGY: Coronavirus PCR is negative on 06/27 and 07/09. MICROBIOLOGY: Blood culture recheck on 07/12 is negative. We will recheck blood culture again. RADIOLOGY STUDIES: No new radiology studies available. ASSESSMENT AND PLAN: 1. Persistent bacteremia-recheck blood culture negative, on 07/12. We will recheck the blood again. 2. Bacteremia secondary to infected graft of right upper extremity-status post removal of the AV graft. I do not have any cultures available. 3. Dialysis. The patient is currently on temporary catheter for dialysis in need of a permanent catheter. 4. Diabetes. 5. Anemia. 6. Debility. PLAN: Continue with antibiotics as planned, recommended for 2 more months of vancomycin IV with each hemodialysis. Recheck the blood culture. The patient can be discharged from Infectious Disease point of view when vancomycin IV is arranged and the patient receives dialysis, permanent catheter. Discussed with Dr. Ayala in details. Please refer to chart for more information. Dictated by Landry Gutierrez PA-C (Al) Darren Ayala MD /MODL /[id number]
--- NOTE | 2019-07-17 14:30 | NUR ---
GOT UP OUT OF CHAIR AND WALKING IN ROOM. REFUSES REDIRECTION FOR HER SAFETY BACK TO THE BED, NEEDS TO BE GUIDED WITH TWO STAFF MEMBERS TO SAFELY GET TO THE BED. AFTER GETTING TO THE BED, SHE WENT TO SLEEP
[2019-07-17] MEDS: ACETAMINOPHEN 325 MG TAB PO PRN (22:11)
[2019-07-18] VITALS (9 sets, daily range): BP systolic 90–113; BP diastolic 49–94
[2019-07-18] MEDS: ACETAMINOPHEN 325 MG TAB PO PRN (06:45)
--- NOTE | 2019-07-18 06:56 | NUR ---
Bedside report and walking rounds completed with on coming nurse. Patient in bed with call light within reach. No issues or concerns noted.
[2019-07-18] MEDS: INSULIN LISPRO 100 UNIT/1 ML 3ML VIAL SQ SCH ×4 (07:30→21:00)
[2019-07-18] MEDS: MIDODRINE 2.5 MG TAB PO SCH ×3 (08:00→16:32)
[2019-07-18] MEDS: ARTIFICIAL TEARS (OPTH) 15 ML BTL OD SCH ×4 (08:19→23:14)
[2019-07-18] MEDS: RIFAMPIN 300 MG CAP PO SCH (08:19)
[2019-07-18] MEDS: FAMOTIDINE 20 MG/2 ML VIAL IV SCH ×2 (09:16→17:32)
--- NOTE | 2019-07-18 10:41 | NUR ---
DIALYSIS IN [facility] IS [facility] JESS[facility] M, W AND [facility]IDA[facility]
--- NOTE | 2019-07-18 10:44 | Progress Note ---
DATE: SUBJECTIVE: The patient is seen and evaluated. Available labs and notes reviewed. Discussed with the nurse and discussed with the dialysis nurse. REVIEW OF SYSTEMS: The patient remains slightly confused. No acute distress. Sitter in the room. Dialysis in the room. No events overnight per my discussion with staff. OBJECTIVE: VITAL SIGNS: Temperature is 97.7, pulse 68, respirations 18, and blood pressure 118/47. GENERAL: Comfortable in bed. No acute distress. Dialysis in a room. CV: S1 and S2. CHEST: Equal expansion. Clear to auscultation. No acute distress. ABDOMEN: Soft, obese, nontender. Positive bowel sounds. HEENT: Moist. No pallor. No JVD. EXTREMITIES: Right upper extremity surgical site with whit. Small dehiscences of one of the wounds, but otherwise no acute distress. MEDICATIONS: Reviewed. As far as Infectious Disease point of view, patient is on vancomycin IV based on her kidney function, which is on dialysis. LABORATORY STUDIES: White count of 5.07 from yesterday with a hemoglobin level of 12 and platelet of 143. No new BMP from today either. MICROBIOLOGY: Blood culture on07/13/2019 negative. After 5 days, blood culture from 07/17/2019 is pending. RADIOLOGY STUDIES: No new radiology studies available. ASSESSMENT AND PLAN: 1. Persistent methicillin-resistant Staphylococcus aureus bacteremia, most likely secondary to AV graft. 2. AV graft removed. Recheck blood culture on 07/13/2019 is negative with a recheck blood culture pending. 3. Dialysis. The patient is currently on temporary catheter, okay for Permacath placement. 4. Diabetes. 5. Obesity. 6. Anemia. 7. Debility. PLAN: Continue with vancomycin for a total of two months through the dialysis. Follow up with the blood culture recheck. Continue dialysis as recommended and ordered by GI and Renal. Continue to monitor the patient clinically, follow with the labs. Discussed with Dr. Ayala in details. Please refer to chart for more information. Dictated by Landry Gutierrez PA-C (Al) Darren Ayala MD /MODL /[id number]
[2019-07-18] MEDS: VANCOMYCIN 1GM/NS 250 ML 250 ML IV SCH (18:23)
--- NOTE | 2019-07-18 19:10 | NUR ---
Bedside shift report received from day rn. Pt pulling at dressing on left neck TL cath and rt upper arm dressings. Pt speaks Nepali and confused at times. Hx MRSA rt arm and blood. Rt groin pressure dressing is dry and intact- old femoral cath site.Pt try to get up and pulling at line and arm dressing. pt c/o of itching at times scratching dressings. Respirations are even and unlabored. Call light within reach. Bed in low position.npo at 12 mn for placement of tunneled cath.
[2019-07-18] MEDS ORDERED: HYDROXYZINE HCL 10 MG TAB PO PRN (22:15)
--- NOTE | 2019-07-18 22:20 | NUR ---
Physician called for med for itching and report pt trying to pull at lines and arm dressing. New orders received for atatrax and seroquel.Pt sleeping on and off.
[2019-07-18] MEDS: QUETIAPINE FUMARATE 25 MG TAB PO SCH (23:16)
[2019-07-19] VITALS (8 sets, daily range): BP systolic 95–114; BP diastolic 52–88
[2019-07-19] MEDS: QUETIAPINE FUMARATE 25 MG TAB PO SCH ×4 (05:47→16:13)
[2019-07-19] MEDS: INSULIN LISPRO 100 UNIT/1 ML 3ML VIAL SQ SCH ×4 (07:30→20:03)
[2019-07-19] MEDS: MIDODRINE 2.5 MG TAB PO SCH ×3 (08:30→16:13)
[2019-07-19] MEDS: FAMOTIDINE 20 MG/2 ML VIAL IV SCH ×2 (08:47→16:13)
[2019-07-19] MEDS: RIFAMPIN 300 MG CAP PO SCH (08:47)
[2019-07-19] MEDS: ARTIFICIAL TEARS (OPTH) 15 ML BTL OD SCH ×4 (08:47→20:03)
--- NOTE | 2019-07-19 11:09 | Progress Note ---
DATE: SUBJECTIVE: The patient is seen and evaluated. Available labs and notes reviewed. Discussed with Dr. Ayala and discussed with the nurse. The patient currently with a sitter since the patient keeps pulling on surgical site whit and her lines. Otherwise no nausea, no vomiting, no fever, no chills, no shortness of breath, no rash per my discussion with staff. Currently comfortable in bed. OBJECTIVE: VITAL SIGNS: Temperature 97.7, pulse is 76, respiration 16. Blood pressure 114/53. GENERAL: Comfortable in bed. No acute distress. CV: S1-S2. CHEST: Equal expansion. Clear to auscultation. No acute distress. ABDOMEN: Soft, nontender. No distention. HEENT: Moist. No pallor. No JVD. EXTREMITIES: Right upper extremity surgical site on local care with whit with a small area of dehiscence. No obvious acute drainage noted. MEDICATIONS: Medication list reviewed from Infectious Disease point of view, the patient is on rifampin p.r.n. and vancomycin IV with dialysis. LABORATORY STUDIES: The patient is on dialysis and no recent CBC or BMP available. Serology: Coronavirus PCR 06/27 and 07/09, not detected. Microbiology: Blood culture 07/12 and 07/16 are negative, 4 sets. Pathology 07/11/2019, showed a medical administrative assistant compatible with an arteriovenous grossly identified. IMAGING: No new radiology studies available. ASSESSMENT AND PLAN: MRSA bacteremia persistent secondary to AV graft, culture showed MRSA. The patient is on vancomycin IV and rifampin p.o. The vancomycin IV is dosed based on kidney function, AV graft has been removed. Pathology as mentioned above. PLAN: Plan is to get a PermCath for dialysis today. The patient is going to need 2 more months of vancomycin IV with the dialysis. Further management of this patient based on daily findings of laboratory and physical examination. Discussed with Dr. Ayala in details. Please refer to chart for more information. Dictated by Landry Gutierrez PA-C (Al) Darren Ayala MD /MODL /[id number]
[2019-07-19] MEDS ORDERED: SODIUM CHLORIDE 0.9% 500ML 500 ML ONE (12:50)
[2019-07-19] MEDS ORDERED: HEPARIN SOD (PORCINE) 5,000 UNIT/ML VIAL ONE (12:50)
[2019-07-19] MEDS ORDERED: LIDOCAINE HCL 1% LOCAL INJ 20 ML VIAL ONE (12:53)
--- NOTE | 2019-07-19 14:38 | NUR ---
Called pt's daughter Irene [phone]. She states pt lives with pt's who is currently at [facility]. Explained to Irene that we are currently unable to place pt anywhere due to her having a sitter. Informed her that [facility] would take pts with sitters, as long as family can provide one, or family can come stay with pt 14/09. She states that all family members currently work so would be unable to stay with pt all day. Also they are not able to provide a sitter. Family also unable to take pt home since everyone works and will not be able to stay with pt at home. CM will talk to nurse and MD and update them on status. Spoke with Dr. Serrano with [facility]. Dr. Serrano said he will manage medications on his end. Said to keep sitter today, will re-evaluate tomorrow and see if sitter can be DC'd.
--- NOTE | 2019-07-19 14:55 | Operative Report ---
DATE OF PROCEDURE: 07/19/2019 SURGEON: Hayden Bolden MD PREOPERATIVE DIAGNOSIS: End-stage renal disease. POSTOPERATIVE DIAGNOSIS: End-stage renal disease. PROCEDURES: Placement of tunneled left internal jugular tunneled hemodialysis catheter. MANUFACTURING EXECUTIVE: None. ANESTHESIA: General. INDICATIONS AND FINDINGS: The patient is a 68-year-old female, multiple medical problems, who is on hemodialysis, had to have removal of infected graft and now ease access for hemodialysis. At Surgery, the old temporary catheter was removed and new catheter placed without difficulty with the tip of the catheter seen to be the junction of superior vena cava, right atrium, blood aspirated freely from each lumen of the catheter at the end of the procedure, filling a 10 mL syringe in about 1 second. TECHNIQUE: After adequate general anesthesia, the patient is in supine position. The neck and chest were prepped and draped in sterile fashion with ChloraPrep solution. A guidewire was placed through the previously placed catheter position of the wire and the superior vena cava was confirmed with fluoroscopy. The old catheter was removed. The new catheter was tunneled from the left chest wall to the neck insertion site wound. The tract to the vein was dilated using the provided dilators. An introducer was passed over the guidewire and the catheter was passed through the introducer and positioned, so that the tip of the catheter was the junction of superior vena cava, right atrium, the catheter was aspirated, found to aspirate blood freely from each lumen, filling a 10 mL syringe about 1 second; each was then flushed with heparinized saline. The catheter was inspected with fluoroscopy. There were no kinks and the catheter tip was seen to be in the superior vena cava. Each lumen was then flushed once again with heparinized saline. Each was aspirated again, found to aspirate blood freely with no resistance feeling. A 10 mL syringe in less than 1 second, each was then flushed with heparinized saline. Hemostasis, which was seen to be adequate. The neck wound was then closed with subcuticular sutures of 4-0 Vicryl. The catheter was held in place. Skin exit site using 2-0 nylon. A sterile dressings applied to each wound. The patient tolerated the procedure well. Estimated blood loss was 100 mL. There were no complications. All counts were correct and the patient was taken to the recovery room in satisfactory condition. Hayden W MD RAYSHAWN Bolden/SHELLEY /[id number]
[2019-07-19] MEDS ORDERED: FENTANYL CITRATE/PF 100MCG/2 ML INJ ONE (15:02)
--- NOTE | 2019-07-19 15:06 | Progress Note ---
DATE: 07/19/2019 SUBJECTIVE: Ms. Christine is in procedure, getting line placed tunneled dialysis catheter placed. Discussed with nursing. Had multiple procedures and is unfortunately still picking at lines. OBJECTIVE: VITAL SIGNS: Temperature 99.1, respirations 16, heart rate 74, blood pressure 103/69. LABS: Labs from 2 days ago, 5.0 white cell count, 12 hemoglobin, 36.7 hematocrit, platelets of 143. Rehab miller, she is . She walked 150 feet with min assist on 07/17. Her problem is when she is not in therapy, she tends to take and therefore needs somebody to actively hold her arms down. I will see how she does . Continue supportive care. We have . John Nieto DO RPL/MODL /[id number]
--- NOTE | 2019-07-19 15:16 | Diagnostic Imaging Report ---
EXAMINATION: CHEST SINGLE (PORTABLE) INDICATION: Line placement COMPARISON: Chest radiograph of 06/30/2019 FINDINGS: LINES/TUBES:Interval placement of left IJ tunneled hemodialysis catheter which terminates in the superior vena cava. Unchanged left IJ catheter. LUNGS:The lungs are moderately inflated. There is perihilar fullness and indistinctness of the pulmonary vasculature. PLEURA:No pleural effusion or pneumothorax. MEDIASTINUM:The cardiomediastinal silhouette appears normal in size and shape. Atherosclerotic calcifications of the thoracic aorta. BONES/SOFT TISSUES:No acute osseous injury. Sternotomy wires in place. ABDOMEN:No free air under the diaphragm. IMPRESSION: Interval placement of left IJ tunneled hemodialysis catheter terminating in the SVC. Mild pulmonary interstitial edema. Signed by: Libertad Mancuso MD on 07/19/2019 3:12 PM
--- NOTE | 2019-07-19 15:46 | NUR ---
Patient is back from the OR , she had tunneled left HD catheter placed. Left IJ was removed in the or. Patient has peripheral IV access in the right FA 22g. Patient is alert x2 , she is sleepy as she received sedation for procedure and in recovery. 1: sitter is at bedside.
[2019-07-19] MEDS ORDERED: ONDANSETRON HCL INJ 2MG/ML 2ML 2 MG/ML VIAL ONE (19:43)
[2019-07-19] MEDS ORDERED: PROPOFOL IV EMULSION 10 MG/ML 20 ML VIAL ONE (19:43)
[2019-07-19] MEDS ORDERED: DEXAMETHASONE SOD PHOS INJ 4 MG/ML VIAL ONE (19:43)
[2019-07-19] MEDS ORDERED: SEVOFLURANE INHAL SOLN 250 ML PEN BTL ONE (19:43)
[2019-07-19] MEDS ORDERED: PHENYLEPHRINE HCL 1% 10 MG/ML VIAL ONE (19:43)
[2019-07-19] MEDS ORDERED: LIDOCAINE HCL 2% LOCAL INJ 5 ML SDV VIAL INJ ONE (19:43)
[2019-07-20] VITALS (8 sets, daily range): BP systolic 88–130; BP diastolic 47–102
[2019-07-20] MEDS: QUETIAPINE FUMARATE 25 MG TAB PO SCH ×4 (00:15→16:49)
[2019-07-20] MEDS: ACETAMINOPHEN 325 MG TAB PO PRN (03:22)
[2019-07-20] MEDS: INSULIN LISPRO 100 UNIT/1 ML 3ML VIAL SQ SCH ×4 (07:30→20:58)
[2019-07-20] MEDS: RIFAMPIN 300 MG CAP PO SCH (08:12)
[2019-07-20] MEDS: ARTIFICIAL TEARS (OPTH) 15 ML BTL OD SCH ×4 (08:12→20:58)
[2019-07-20] MEDS: FAMOTIDINE 20 MG/2 ML VIAL IV SCH ×2 (08:12→16:20)
[2019-07-20] MEDS: MIDODRINE 2.5 MG TAB PO SCH ×2 (08:13→12:07)
[2019-07-20 10:28] LABS: BASOPHILS # (AUTO) 0.1 (0.0-0.1); BASOPHILS % 0.9 % (0.0-1.0); EOSINOPHILS # (AUTO) 0.2 (0.0-0.4); EOSINOPHILS % 2.7 % (0.0-6.0); HEMATOCRIT 33.8 % (34.2-44.1); HEMOGLOBIN 10.5 g/dL (12.0-16.0); LYMPHOCYTES # (AUTO) 1.6 (1.0-3.2); LYMPHOCYTES % 28.1 % (18.0-39.1); MEAN CORPUSCULAR HEMOGLOBIN 33.3 pg (28-32); MEAN CORPUSCULAR HGB CONC 31.1 g/dL (31-35); MEAN CORPUSCULAR VOLUME 107.3 fL (81-99); MONOCYTES # (AUTO) 0.5 (0.2-0.8); MONOCYTES % 8.6 % (4.4-11.3); NEUTROPHILS # (AUTO) 3.5 (2.1-6.9); NEUTROPHILS % 59.2 % (38.7-80.0); PLATELET COUNT 142 x10e3/uL (140-360); RED BLOOD COUNT 3.15 x10e6/uL (3.6-5.1); RED CELL DISTRIBUTION WIDTH 19.3 % (11.7-14.4)
[2019-07-20 10:55] LABS: ANION GAP 15.7 mmol/L (8-16); CALCIUM 9.1 mg/dL (8.4-10.2); CREATININE, SERUM 6.74 mg/dL (0.57-1.11); POTASSIUM 4.7 mmol/L (3.5-5.1)
--- NOTE | 2019-07-20 11:15 | NUR ---
Dr. Serrano is aware patient will not be transferred today. Patient needs to be sitter free for 24 hours prior to transfer
--- NOTE | 2019-07-20 11:24 | Progress Note ---
DATE: SUBJECTIVE: The patient is seen and evaluated. Available labs and notes reviewed. Discussed with the nurse and discussed with dialysis nurse. No new events or complaints. REVIEW OF SYSTEMS: No nausea, vomiting, fever, chills, chest pain, shortness of breath, headache, rash, dysuria, or polyuria. PHYSICAL EXAMINATION: VITAL SIGNS: Temperature 98.5, pulse 78, respirations 16, and blood pressure 88/55. GENERAL: Alert and oriented, no acute distress. CV: S1 and S2. CHEST: Equal expansion. Clear to auscultation. No acute distress. ABDOMEN: Soft and nontender. No distention. HEENT: Moist. No pallor. No JVD. MEDICATIONS: Medication list reviewed. From Infectious Disease point of view, the patient is on vancomycin IV and rifampin. LABORATORY STUDIES: The patient is on dialysis. No new CBC and no new BMP available. MICROBIOLOGY: Blood cultures recheck on 07/12 and 07/16 are negative so far. IMAGING: No new imaging available. ASSESSMENT AND PLAN: 1. Persistent methicillin-resistant Staphylococcus aureus bacteremia due to AV graft-AV graft was removed. The patient's blood culture is negative x2. The patient remains on vancomycin IV and rifampin. Surgical site on local care. The patient received her permanent catheter and temporary catheter removed. Discharge planning in progress to [facility]. 2. End-stage renal disease, on dialysis. 3. Debility-currently on PT/OT, also going to rehab. 4. Electrolyte abnormality per others. 5. Diabetes. 6. Continue to monitor the patient clinically and follow with the labs. The patient needs total of 2 months of IV antibiotic treatment after discharge. Discussed with Dr. Ayala in details. Please refer to chart for more information. Dictated by Landry Gutierrez PA-C (Al) Darren Ayala MD /MODL /[id number]
[2019-07-20 11:25] LABS: ANISOCYTOSIS MODERATE
[2019-07-20 11:26] LABS: MICROCYTOSIS SLIGHT; OVALOCYTES FEW; PLATELET ESTIMATE ADEQUATE; PLATELET MORPHOLOGY COMMENT NORMAL; RBC MORPHOLOGY COMMENT ABNORMAL
[2019-07-20] MEDS ORDERED: HEPARIN SOD (PORCINE) 1000 UNIT/ML SDV IV PRN (14:00)
[2019-07-20] MEDS ORDERED: SODIUM CHLORIDE 0.9% 1000ML 2,000 ML IV PRN (14:00)
[2019-07-20] MEDS: VANCOMYCIN 1GM/NS 250 ML 250 ML IV SCH (16:20)
[2019-07-20] MEDS: MIDODRINE HCL 5 MG TABLET PO SCH (16:20)
--- NOTE | 2019-07-20 16:40 | NUR ---
Nutrition Intervention Note RD Recommendation(s) for Physician: - Continue renal diet and consistency per speech therapy or MD - Recommend Nepro BID for added nutrition Plan of Care: RD following, monitoring for tolerance and adequacy. Diet and ONS rec's. Nutrition reason for involvement: Follow up RD Assessment 07/19: Follow up. Pt discussed during MDR, s/p tunneled HD catheter placement yesterday with plan for HD today. Pt pending discharge today or tomorrow. Po intake fluctuating, current rec's remain appropriate. No GI distress. Chart reviewed. Will continue to monitor. 07/14: Follow up. Spoke to RN who stated pt did not eat breakfast this morning due to being lethargic. Recommend Nepro BID for added nutrition. Will continue to monitor. 07/09: Follow up. Pt discussed during am MDR. Pt continues with AMS, very agitated at time of visit. Pt with continued fluctuating intake with recent intake of 0-75% of meals. No GI distress reported. Pt s/p I&D of R arm wound with plan for AV fistula removal and HDC placement per RN. Chart reviewed. Diet and supplement rec's provided. Will continue to monitor. (07/03/19) Chart reviewed. Labs and meds reviewed. Pt is a 68 year old male admitted with AMS, ESRD, and UTI. Unable to speak to pt since he was sleeping at time of visit. It is recorded that pt consumed 75% of meals today and 25-100% of meals yesterday. Per weight history, pt weighed 182 lbs in January 2019; therefore, no weight loss is evident. Primary Diagnose(s): AMS, ESRD, UTI PMH: ESRD, DM, HTN, CAD, HLD GI: soft, non-tender round abdomen, last recorded BM 07/16 Skin: R arm wound- infection site Labs: 07/09: Na 137, K 3.7, BUN 20, Cr 5.29, Glu 95 07/08: Na 134, K 4.8, BUN 19, Cr 5.38, Gluc 84 Meds: antibiotics, pepcid, zofran, insulin, mannitol Ht: 65 in Wt: 176 lbs (07/13) 181.56 lb (07/05) BMI: 29.3 kg/m2 IBW:125 lb Malnutrition Evaluation (07/10/19) The patient does not meet criteria for a specified degree of malnutrition at this time. Will re-evaluate at follow-up as appropriate. Energy intake: <75% of meals for > 7 days Weight loss: No wt loss CHUCK BONER, possible wt changes associated with HD fluid shifts since admit Fat loss: none, ample triceps skinfold thickness Muscle loss: none, shoulder round Supporting Evidence: Fluid accumulation: none Functional Status: unable to evaluate Nutrition Prescription (Diet Order): Renal Estimated Nutritional Needs: 4367-1483 calories/day (18-20 kcal/kg CBW) Weight used: 176 lbs 80-120 g protein/day (1-1.5 g pro/kg CBW) Weight used: 176 lbs Diet Adequacy: Not meeting calorie needs, Not meeting protein needs Diet Tolerance: tolerating po Diet Education Needs Assessment: Diet education not indicated at this time Nutrition Care Level: moderate Nutrition Diagnosis: Inadequate energy and protein intake related to current medical conditions as evidenced by decreased po intake and not meeting needs. Goal: Patient will meet 75-100% of estimated needs by follow up Progress: progressing Interventions: -Mineral modified diet, Commercial beverage, Recommended Modifications, Collaboration with other providers Monitoring/Evaluation: -Total energy intake, Total protein intake, Modified diet, Liquid supplement Signed: Lillian Musa RD, LD, CNSC
--- NOTE | 2019-07-20 19:06 | Progress Note ---
DATE: 07/20/2019 SUBJECTIVE: Mrs. Christine is seen on rounds today. She no longer has a sitter position, asking for pain pills. LABORATORY DATA: White cell count is 5.8, hemoglobin 10.5, hematocrit 33.8, and platelets of 143. Sodium is 137, potassium 3.7, BUN 22, creatinine 6.7. Rehab miller, the patient is still staying up and mobile. Right now, she seems to be a lot calmer. We will see how she does. She still running high blood pressure at times. She is afebrile. IMPRESSION: 1. Debilitation. 2. End-stage renal disease, on hemodialysis. 3. Encephalopathy. PLAN: The patient at this point looks like she still needs to be able to participate in more therapy on consistent basis. We will see how she does. Hopefully, continue to improve. We will follow the patient. John Nieto DO RPL/MODL /[id number]
--- NOTE | 2019-07-20 19:30 | NUR ---
BEDSIDE SHIFT REPORT RECEIVED. PATIENT RESTING IN BED, RESP EVEN AND UNLABORED. NO DISTRESS NOTED. CALL LIGHT WITH IN EASY REACH. INSTRUCTED PT TO USE CALL LIGHT FOR ALL THE NEEDS. BED IS LOW/LOCKED. SIDE RAILS X2. BED ALARM IS ON. PT DENIES NEEDS AT THIS TIME.
[2019-07-21] VITALS: BP 140/78
[2019-07-21] MEDS: QUETIAPINE FUMARATE 25 MG TAB PO SCH ×4 (00:14→17:04)
[2019-07-21 04:00] VITALS: BP 116/55
[2019-07-21] MEDS: ACETAMINOPHEN 325 MG TAB PO PRN (06:00)
--- NOTE | 2019-07-21 07:00 | NUR ---
Bedside rounding has been completed with the off-going nurse. She denies pain or discomfort at this time.
[2019-07-21] MEDS: INSULIN LISPRO 100 UNIT/1 ML 3ML VIAL SQ SCH ×3 (07:30→16:30)
[2019-07-21 08:00] VITALS: BP 103/66
[2019-07-21 08:07] VITALS: BP 103/66
[2019-07-21] MEDS: FAMOTIDINE 20 MG/2 ML VIAL IV SCH ×2 (09:09→17:04)
[2019-07-21] MEDS: MIDODRINE HCL 5 MG TABLET PO SCH ×3 (09:09→17:04)
[2019-07-21] MEDS: RIFAMPIN 300 MG CAP PO SCH (09:10)
[2019-07-21] MEDS: ARTIFICIAL TEARS (OPTH) 15 ML BTL OD SCH ×3 (09:10→17:04)
--- NOTE | 2019-07-21 09:36 | NUR ---
Dr. Serrano rounded and order to discharge the pt. when home care arrangements are completed.
--- NOTE | 2019-07-21 10:17 | NUR ---
Spoke with pt's daughter regarding dc plan. She is agreeable to [facility]. Choice letter placed in front of chart. Clinicals faxed to [facility] at [phone]. Monet with [facility] was notified of referral and informed that pt is ready to dc.
[2019-07-21 11:40] VITALS: BP 117/45
--- NOTE | 2019-07-21 12:10 | Progress Note ---
DATE: SUBJECTIVE: The patient is seen and evaluated. Available labs and notes reviewed. Discussed with Dr. Ayala. Please refer to chart for more information. Discussed with staff/nurse. OBJECTIVE: VITAL SIGNS: Temperature 98, pulse 86, respirations 16, blood pressure 103/66. GENERAL: Alert and oriented, very pleasant, no acute distress. CV: S1-S2. CHEST: Equal expansion. Clear to auscultation. No acute distress. ABDOMEN: Soft, obese, nontender. Positive bowel sounds. EXTREMITIES: Right upper extremity surgical site dressed on local care. Fingers are warm and the patient moves her right upper extremity. MEDICATION: Medication/antibiotics reviewed. The patient is on vancomycin IV and rifampin. LABORATORY STUDIES: No new CBC or BMP from today. The patient is on dialysis. Microbiology studies; recheck blood cultures from 07/12 and 07/16 remain negative. RADIOLOGY STUDIES: No new radiology studies are available. ASSESSMENT AND PLAN: 1. Persistent bacteremia with methicillin-resistant Staphylococcus aureus. 2. secondary to AV graft infection, AV graft has been removed and blood cultures on our recheck are negative so far as mentioned above. The patient remains on vancomycin IV and rifampin p.o. 3. End-stage renal disease-continue with dialysis as recommended by renal physician. 4. Debility-the patient needs PT/OT. 5. Diabetes. 6. Electrolyte abnormalities. 7. Obesity. 8. The patient is scheduled to be going to [facility]. Continue with antibiotics for a total of 2 months. Follow up with Dr. Ayala in 2 weeks. Please refer to the chart for more information. Discussed with Dr. Ayala in details. Dictated by Landry Gutierrez PA-C (Al) Darren Ayala MD /MODL /[id number]
[2019-07-21 16:29] VITALS: BP 103/56
--- NOTE | 2019-07-21 16:33 | NUR ---
INPATIENT REHAB DISCHARGE INFORMATION PATIENT HAS BEEN ACCEPTED TO: [address] [place] [address] ACCEPTING TREE SPECIALIST: MOMO PAGE ACCEPTING MD: MIN BARNHART ROOM: WILL BE ASSIGNED UPON ADMISSION NURSE CALL REPORT TO: [phone] THE FOLLOWING DOCUMENTS MUST ACCOMPANY PATIENT FOR TRANSFER: COPY OF CHART, TRANSFER MAR COPIED CHART: SHAKA, RN WOUND MOT INFO RECEIVED FROM: [facility] ORDER/RECONCILED MED LIST: TO BE OBTAINED BY BEDSIDE RN [id number] DNR: N/A MOT COMPLETED AND PLACED WITH PT'S PACKET AT [facility]. CALLED DAUGHTER MARTIN AND INFORMED OF ACCEPTANCE [facility] WAS NOTIFIED OF MOT.
--- NOTE | 2019-07-21 17:12 | NUR ---
Report called to the receiving nurse at [facility] and the pt. is to transfer once ambulance arrives.
--- NOTE | 2019-07-21 18:24 | NUR ---
The ambulance is here to transport the pt. to [facility]. Report has been given and pt. is in stable condition.
--- NOTE | 2019-07-22 06:18 | Discharge Summary ---
CONSULTING PHYSICIANS: 1. Dr. Darren Ayala. 2. Dr. John Nieto. 3. Dr. Clemente Alvarez. 4. Dr. Hayden Bolden. 5. Dr. Mau Mccormick. PRIMARY CARE PHYSICIAN: Phil Serrano MD FINAL DIAGNOSES: 1. Sepsis with shock, resolved. 2. Healthcare-acquired pneumonia. The patient came from the halfway. 3. Methicillin-resistant Staphylococcus aureus and bacteremia, secondary to right arm AV graft infection. 4. Status post right AV graft removal. 5. Baseline end-stage renal disease, on hemodialysis. 6. Baseline Alzheimer dementia. 7. Atrial fibrillation, rate controlled. 8. Hypertension with end-stage renal failure. 9. Morbid obesity. 10. Medical deconditioning. 11. Post-toxic encephalopathy. 12. Diabetes type 2. 13. Anticoagulant therapy for atrial fibrillation. SUMMARY: The patient is a 68-year-old female, chronically ill, but was stable at the halfway. Apparently, the patient came in with septic and shock associated with hypotensive shock and fever. The patient required pressure support in light of her end-stage renal disease on dialysis. The patient did receive sepsis protocol with multiple bolus IV fluids. The patient was in the ICU. She improved, pressor support discontinued and the patient continued with her antibiotics. Multiple workup done including CT chest, abdomen, and pelvis do sign out the severe sepsis. The patient had pneumonia, but could not explain the severe sepsis that associated with the patient's symptoms require ICU admission. Blood culture subsequently grew out MRSA. The patient also on further evaluation has a pustular drainage in the right upper extremity where the AV graft for dialysis area. Subsequently, it was expressed and drained, but subsequently also found that the patient with persistent bacteremia. In light of treatment, the patient with persistent bacteremia protocol, subsequently removal of the AV graft needed. The patient underwent AV graft removal and a temporary catheter was placed in the right groin. The patient continued with dialysis in the right groin with eventual left IJ temporary catheter placed and discontinue the right groin catheter. The patient will need to continue with antibiotic at least 2 to 3 weeks prior to her next AV graft placement. Therefore, the patient had a left upper chest Perma catheter placement done by Dr. Hayden Bolden. The patient during those time had agitation where she pulled out the IV and the dressing. Medication started with low dosing Seroquel to control the patient's symptoms. She seemed to be doing really well and sitter was discontinued over 24 hours and the patient had not pull out any dressing or line. Matter of fact, the patient is eating. She is eating herself. She is in bed. At baseline, the patient is able to ambulate. She lives with her , who is now ill and was discharged to the halfway. The patient at this point will not go to the halfway due to first she had an infection at the halfway and 2nd she is debilitated and at baseline, she is able to ambulate physical therapy now showed that the patient is improving, but she needs more aggressive measures, so that where she can be at home with her when he is discharged from the skilled facility. Again, at baseline, the patient was able to ambulate. She is able to feed herself and do some of the ADL activity in light of her dementia. The patient will be discharged to the [facility]. Continue with IV antibiotics post dialysis, vancomycin to treat for the MRSA bacteremia. I will repeat the blood culture and in approximately 2 to 3 weeks, the patient will have scheduled for AV graft replacement with Dr. Hayden Bolden. The patient is stable, discharged today when appropriate. MD TASIA Ocampo/SHELLEY /[id number]
== END 2019-07-21 18:33 | DRG 252 ==
LOC: ER 12:22 → ERHOLD 12:30 → ICU 22:10 → IMCU 07-01 20:28 → MED/SURG2 07-04 07:30
PROVIDERS: ADMIT Internal Medicine; ATTEND Internal Medicine
PROC: 5A1D70Z Performance of Urinary Filtration, Intermittent, Less than 6 Hours Per Day (ICD-10-PCS; 2019-06-29)
PROC: 0JBD0ZZ Excision of Right Upper Arm Subcutaneous Tissue and Fascia, Open Approach (ICD-10-PCS; 2019-07-05)
PROC: 30233N1 Transfusion of Nonautologous Red Blood Cells into Peripheral Vein, Percutaneous Approach (ICD-10-PCS; 2019-07-08)
PROC: 06H033Z Insertion of Infusion Device into Inferior Vena Cava, Percutaneous Approach (ICD-10-PCS; 2019-07-10)
PROC: 03Q70ZZ Repair Right Brachial Artery, Open Approach (ICD-10-PCS; principal; 2019-07-11 11:00)
PROC: 0JH63XZ Insertion of Tunneled Vascular Access Device into Chest Subcutaneous Tissue and Fascia, Percutaneous Approach (ICD-10-PCS; 2019-07-19)
PROC: 02HV33Z Insertion of Infusion Device into Superior Vena Cava, Percutaneous Approach (ICD-10-PCS; 2019-07-19)
DX: T82.7XXA Infection and inflammatory reaction due to other cardiac and vascular devices, implants and grafts, initial encounter (principal); N18.6 End stage renal disease; G92 Toxic encephalopathy; A41.02 Sepsis due to Methicillin resistant Staphylococcus aureus; J18.9 Pneumonia, unspecified organism; I12.0 Hypertensive chronic kidney disease with stage 5 chronic kidney disease or end stage renal disease; F02.81 Dementia in other diseases classified elsewhere, unspecified severity, with behavioral disturbance; I25.810 Atherosclerosis of coronary artery bypass graft(s) without angina pectoris; D63.1 Anemia in chronic kidney disease; Z11.59 Encounter for screening for other viral diseases; E11.22 Type 2 diabetes mellitus with diabetic chronic kidney disease; Z99.2 Dependence on renal dialysis; Z79.4 Long term (current) use of insulin; G30.9 Alzheimer's disease, unspecified; E66.01 Morbid (severe) obesity due to excess calories; Z68.29 Body mass index [BMI] 29.0-29.9, adult; B95.62 Methicillin resistant Staphylococcus aureus infection as the cause of diseases classified elsewhere; Z95.0 Presence of cardiac pacemaker; Z95.1 Presence of aortocoronary bypass graft; I48.0 Paroxysmal atrial fibrillation; Y95 Nosocomial condition
CPT/HCPCS: 36415; 36556; 36600; 70450; 71045; 71250; 74176; 74470; 76770; 76937; 77001; 80048; 80053; 80307; 80320; 80329; 81001; 82140; 82550; 82553; 82805; 82948; 83518; 83605; 83735; 83880; 84100; 84484; 85025; 85610; 85730; 86704; 86706; 86850; 86900; 86920; 87040; 87070; 87071; 87075; 87086; 87186; 87205; 87340; 87400; 87635; 88300; 93005; 93970; 96372; 97139; 99251; 99284; C1750; C1769; J1100; J1644; J2001; J2185; J2310; J2370; J2405; J2710; J3010; J3370; J3410; J7030; J7040; J7050; P9016; Q0162; Q9967

== ENCOUNTER 2019-09-08 12:10 | Emergency (ER) | payer MEDICARE ==
[~2019-09-08] VITALS: Ht 167.6 cm; Wt 86.2 kg
--- NOTE | 2019-09-08 12:39 | Emergency Department Note ---
History of Present Illnes History of Present Illness Chief Complaint: COVID PUI History of Present Illness This is a 68 year old female . Historian: Patient, Admitting Officer/EMS Arrival Mode: [place] Onset (how long ago): day(s) Radiation: Reports non-radiation Severity: mild Onset quality: gradual Timing of current episode: constant Progression: unchanged Chronicity: new Context: Reports recent illness Relieving factors: none Exacerbating factors: none Past Medical/Family History Physician Review I have reviewed the patient's past medical and family history. Any updates have been documented here. Past Medical History Recent Fever: No Clinical Suspicion of Infectio: No New/Unexplained Change in Ment: No Past Medical History: Hypertension, Diabetes, CAD, ESRD, Hemodyalisis Other Medical History: C-DIFF DIALYSIS M,W,F. PACEMAKER. Past Surgical History: Pacer/AICD Other Surgery: RIGHT ARM FISTULA Social History Smoking Cessation: Never Smoker Counseling Performed: No Alcohol Use: None Any Illegal Drug Use: No Other Last Tetanus: UNKNOWN Any Pre-Existing Lines (PICC,: No Review of Systems Review of Systems Constitutional: Reports no symptoms, Reports as per HPI, Reports chills, Reports fever EENTM: Reports no symptoms Cardiovascular: Reports no symptoms Respiratory: Reports as per HPI Gastrointestinal: Reports no symptoms Genitourinary: Reports no symptoms Musculoskeletal: Reports no symptoms Integumentary: Reports no symptoms Neurological: Reports no symptoms Psychological: Reports no symptoms Endocrine: Reports no symptoms Hematological/Lymphatic: Reports no symptoms Review of other systems: All other systems negative Physical Exam Related Data Allergies: Coded Allergies: No Known Allergies (Unverified , 02/26/13) Triage Vital Signs Vital Signs Date Time Temp Pulse Resp B/P (MAP) Pulse Ox O2 Delivery O2 Flow Rate FiO2 09/08/19 12:25 98.8 99 18 124/68 99 Room Air Vital signs reviewed: Yes Physical Exam CONSTITUTIONAL Constitutional: Present well-developed, Present well-nourished HENT HENT: Present normocephalic, Present atraumatic, Present oropharynx clear/mois t, Present nose normal HENT L/R: Present left ext ear normal, Present right ext ear normal EYES Eyes: Reports PERRL, Reports conjunctivae normal NECK Neck: Present ROM normal PULMONARY Pulmonary: Present effort normal, Present breath sounds normal CARDIOVASCULAR Cardiovascular: Present regular rhythm, Present heart sounds normal, Present capillary refill normal, Present normal rate GASTROINTESTINAL Abdominal: Present soft, Present nontender, Present bowel sounds normal GENITOURINARY Genitourinary: Present exam deferred SKIN Skin: Present warm, Present dry MUSCULOSKELETAL Musculoskeletal: Present ROM normal NEUROLOGICAL Neurological: Present alert, Present oriented x 3, Present no gross motor or sensory deficits PSYCHOLOGICAL Psychological: Present mood/affect normal, Present judgement normal Assessment & Plan Medical Decision Making MDM 68-year-old well-appearing female arrives to the ED with complaints of cough fever loss of taste and smell. Patient is clinically presenting with signs and symptoms consistent with Covid 19. Pt states is positive. Patient informed she is positive until proven otherwise. Patient's oxygen saturation remained 99% even on exertion, no evidence of tachypnea or dyspnea noted in the ED. Spoke present length about the importance of sleeping on her stomach and rotating from side to side. Z-Gus given, signs and symptoms for return discussed. In the light of the Covid pandemic, disaster medicine care was given- patient understands why she was not tested for Covid 19 in the ED, no indications for a chest x-ray at this time given normal oxygen saturation and respiratory status. Pt understands she is at high risk of morbidity and mortality given his age and co-morbidities. Pt understands she is welcome to return to the ED at anytime for worsening symptoms. The red flags for return to emergency department given. Patient understands the emergency department is open at all times to serve his needs as well as the needs of the community. Assessment & Plan Final Impression: (1) COVID-19 Depart Disposition: HOME, SELF-CARE Last Vital Signs Date Time Temp Pulse Resp B/P (MAP) Pulse Ox O2 Delivery O2 Flow Rate FiO2 09/08/19 12:25 98.8 99 18 124/68 99 Room Air Home Meds Reported Medications Acetaminophen With Codeine (TYLENOL WITH CODEINE #3 TABLET) 1 Each Tablet, 300 MG PO Q6H PRN for ABDOMINAL PAIN, TAB 06/12/19 Ferric Citrate (Auryxia) 210 Mg Tablet, 2 TIDWM 01/28/19 Warfarin Sodium (WARFARIN SODIUM) 2 Mg Tablet, 1 MG PO DAILY, TAB 05/27/18 Sennosides/Docusate Sodium (SENNA S TABLET) 1 Each Tablet, 1 TAB PO BID 05/27/18 Ropinirole Hcl (ROPINIROLE HCL) 0.25 Mg Tablet, 0.5 MG PO HS, #90 TAB 05/27/18 Simvastatin (SIMVASTATIN) 80 Mg Tablet, 80 MG PO HS, #30 TAB 07/10/14 Alprazolam (ALPRAZOLAM) 0.25 Mg Tablet, 0.25 MG PO Q6H PRN for PRN, TAB 07/10/14 EWELINA SCHAEFFER, DO Sep 08, 2019 12:39
--- NOTE | 2019-09-08 13:18 | NUR ---
spoke with pt daughter who asked what was wrong and explained that pt mad no complaints to ems, nurses, and md and that md spoke with pt in uzbek and pt still made no complaints and denied all complaints when asked; daughter said ok and took pt out to her vehicle
== END 2019-09-08 13:01 | disposition home or self-care (01) ==
LOC: ER 13:00
DX: U07.1 COVID-19 (principal); I25.10 Atherosclerotic heart disease of native coronary artery without angina pectoris; I12.0 Hypertensive chronic kidney disease with stage 5 chronic kidney disease or end stage renal disease; E11.22 Type 2 diabetes mellitus with diabetic chronic kidney disease; N18.6 End stage renal disease; Z99.2 Dependence on renal dialysis; Z95.810 Presence of automatic (implantable) cardiac defibrillator
CPT/HCPCS: 99282